=== PATIENT | female | born 1990 | race Caucasian/White ===

== ENCOUNTER 2024-10-29 08:50 | Inpatient (IN) | payer MEDICAID, SELFPAY ==
[2024-10-29 08:53] VITALS: PULSE 113; BMI 27.3
[2024-10-29 08:57] VITALS: BP 128/96; PULSE 98; RESP 18; TEMP 37; O2SAT 99
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
--- NOTE | 2024-10-29 09:09 | PD.EDGIBLD ---
ED GI Bleed RME/HPI General Chief complaint: GI Bleed Stated complaint: RECTAL BLEED Time Seen by Provider: 10/29/24 08:57 Arrival date/time: 10/29/24 08:50 Limitations: no limitations RME / HPI RME / HPI Narrative: DR. AYO VALDEZ ED EVALUATION: 34-year-old female with past medical history of HIV and compliant with medication presents to the Emergency Department after reportedly [place]. This morning, she had a bowel movement with some blood and clots. She denies fever, chills, runny nose, or cough. Patient is a smoker but denies alcohol or drug use. She was recently released from long-term. Related Data Previous Rx's ?Medication ?Instructions ?Recorded sulfamethoxazole 800 1 tab PO BID #14 tabs 11/21/21 mg-trimethoprim 160 mg tablet (Bactrim DS) acetaminophen 500 mg capsule 1,000 mg (2 x 500 mg) PO TID #30 03/29/23 caps dextromethorphan-guaifenesin 10 10 ml PO Q8H PRN cough #500 mL 03/29/23 mg-100 mg/5 mL oral liquid Allergies Allergy/AdvReac Type Severity Reaction Status Date / Time Penicillins Allergy Intermediate Rash Verified 10/29/24 08:56 Review of Systems Review of Systems Systems Reviewed: All systems reviewed, normal except as documented Past Medical History Past Medical History GENITOURINARY: Positive Genitourinary Disorders and Kidney Stones OTHER HISTORY: Positive Human Immunodeficiency Virus (HIV) Social History SMOKING STATUS: Former smoker SUBSTANCE USE: does not use ALCOHOL: Never ED Exam General Limitations: Present no limitations General appearance: Present alert and in no apparent distress Head Head exam: Present atraumatic, normocephalic and normal inspection Eye Eye exam: Present normal appearance, PERRL and EOMI ENT ENT exam: Present normal exam, normal oropharynx and mucous membranes moist Neck Neck exam: Present normal inspection, full ROM and trachea midline Chest Chest inspection: Present normal inspection and symmetric chest wall rise Respiratory Respiratory exam: Present normal lung sounds bilaterally Cardiovascular Cardiovascular exam: Present regular rate, normal rhythm and normal heart sounds Abdominal Exam Abdominal exam: Present soft and normal bowel sounds Extremities Exam Extremities exam: Present normal inspection and full ROM Back Exam Back exam: Present normal inspection and full ROM Neurological Exam Neurological exam: Present alert, oriented X3 and CN II-XII intact Psychiatric Psychiatric exam: Present normal affect and normal mood Skin Skin exam: Present warm, dry, intact and normal color Course Quality Measures none Orders Category Date Time Status CT Screening NOW Care 10/29/24 09:09 Active Referral - Online Merchandising Specialist Stat Cons 10/29/24 13:[address] abdomen pelvis w con Stat Exams 10/29/24 09:09 Completed CBC Stat Lab 10/29/24 09:18 Completed CMP [Comprehensive Metabolic Panel] Stat Lab 10/29/24 09:18 Completed HCG,Qualitative Serum Stat Lab 10/29/24 09:18 Completed Lipase Stat Lab 10/29/24 09:18 Completed Type and Screen Stat Lab 10/29/24 10:55 Completed UA, C/S IF [Urinalysis, C/S if Indicated] Stat Lab 10/29/24 13:09 Completed Acetaminophen Tab [Tylenol ES Tab] Med 10/29/24 09:10 Discontinued 500 mg PO NOW ONE Ringers Lactated 1000 ml [Lactated Ringers] 1,000 ml Med 10/29/24 12:53 Discontinued IV 999 mls/hr cefTRIAXone/D5w 1gm IV premix [Rocephin/D5w 1gm IV Med 10/29/24 13:46 Discontinued premix] 1 gm in 50 ml IV NOW Vital Signs Vital signs: Vital Signs Temperature 98.6 F 10/29/24 08:57 Pulse Rate 98 10/29/24 08:57 Respiratory Rate 18 10/29/24 08:57 Blood Pressure 128/96 H 10/29/24 08:57 Pulse Oximetry (%) 99 10/29/24 08:57 Oxygen Delivery Method Room Air 10/29/24 08:57 GI Bleed MDM Narrative MDM Narrative:: I, Aurora Alexandra am scribing for and in the presence of Dr. Gotti. Patient is a 34-year-old female seen emerged from concerns for abdominal pain after trauma. Also concerned about bright red blood per rectum x 1 episode earlier today. Vital signs and exam as listed. Concern for pancreatitis, perforation, urinary tract infection, pyelonephritis, hemorrhoid. Patient abdomen soft nondistended tender, not peritonitic at this time. Performed rectal exam no evidence of fissure no hemorrhoids. No blood appreciated on rectal exam. Ordered labs CT with medication for symptom relief. Labs without acute hematologic or significant metabolic abnormality. Lipase not elevated patient is not . Patient does have a 16 mm kidney stone on the right with moderate hydronephrosis. Urinalysis with evidence of infection. Provided patient with antibiotics. Patient is not septic. Initiated transfer for urology, discussed the case with [facility] transfer center, they are recommended that we inquire with interventional radiology to see if they are able to place a nephrostomy tube. I did discuss with Dr. Rincon our interventional radiologist, states that he is able to place a nephrostomy tube, will place it tomorrow. Discussed case with hospitalist kindly accepted patient for admission . patient agreeable and amenable to admission. Patient data External records reviewed:: [facility] previous records Clinical information provided by:: patient Social determinants that could affect healthcare access:: none Patient has the following chronic illnesses:: HIV and compliant with medication How is presenting disease/condition affected by chronic disease/condition?: uneffected by Evaluation data The following diagnostics were reviewed and interpreted by me:: lab results and radiology exam(s) Lab and/or radiology exams considered but not ordered:: none Interpretation Summary: Procedure(s): CT abdomen pelvis w con Accession Number(s): [id number] cc: Mikhail León MD; NO PRIMARY/FAMILY,PHYSICIAN; Ana Gotti MD~ Examination: CT abdomen with intravenous contrast CT pelvis with intravenous contrast 2-D coronal reconstructions 2-D sagittal reconstructions Date and time of exam:08/29/2024 1045 hours INDICATIONS: Bloody diarrhea with left lower quadrant abdominal pain today. CTDI: vol (mGy) 7.26 DLP: (mGycm) 400 Technique: Multiple axial sections of the abdomen and pelvis have been obtained. 64 slice high-resolution scanner used. 3 mm axial sections have been obtained, post intravenous injection 60 cc [id number] 2-D sagittal, coronal reconstructions obtained. Low dose protocols were performed. One or more of the following dose reduction techniques were used; automated exposure control, adjustment of the mA and/or KV according to patient size, use of iterative reconstruction technique. Findings: No focal liver or splenic lesions No gallstones No pancreatic mass. Moderate to advanced right hydronephrosis secondary to 16 mm proximal right ureteral calculus Normal appendix No pelvic mass Small left ovarian follicular cyst Bladder intact IMPRESSION: Moderate to advanced right hydronephrosis secondary to 16 mm proximal right ureteral calculus Dictated By: Mikhail León MD Medications / Prescriptions Medications or Prescriptions considered but not ordered:: none Medication administrations:: Medication Administration History Discontinued Medications Acetaminophen (Acetaminophen 500 Mg Tablet) 500 mg PO NOW ONE Stop: 10/29/24 09:11 Last Admin: 10/29/24 09:30 Dose: Not Given Documented By: TM Non-Admin Reason: Patient Refused Lactated Ringer's (Lactated Ringers) 1,000 mls @ 999 mls/hr IV .Q1H1M ONE Stop: 10/29/24 13:53 Last Infusion: 10/29/24 14:28 Dose: Infused Documented By: Admin: 10/29/24 13:27 Dose: 999 mls/hr Documented By: TM Ceftriaxone Sodium/Dextrose (Rocephin/D5w 1gm Iv Premix) 1 gm in 50 mls @ 100 mls/hr IV NOW ONE Stop: 10/29/24 14:15 Last Infusion: 10/29/24 15:07 Dose: Infused Documented By: Admin: 10/29/24 14:37 Dose: 100 mls/hr Documented By: EF see above Consultations Consultation(s) initiated? (list below): Yes Consultation #1 (Physician, Specialty, Details): Discussed test HPI, PMHx, lab, radiology results and/or management with resident working with the hospitalist. Will admit for further evaluation and management. Accepts patient for admission. Time: 16:25 Consultation #2 (Physician, Specialty, Details): hospitalist Diagnosis GI bleed differential diagnosis: other (traumatic gastrointestinal bleed, HIV-associated colitis, and hemorrhoidal bleeding) Most likely diagnosis given after review of the tests above:: Infected obstructed kidney stone, 16 mm with hydronephrosis Admission Indicated Admission indicated?: indicated Admission Request Was there a request for admission?: Yes Admission Attestation Admission request attestation: Discussed case with [] from Hospitalist service regarding admission. Discussed patients ED course, exam findings, labs, and radiology results. The Hospitalist [agrees,declines] to accept the patient for admission. Disposition Plan Disposition Plan: Admit Critical Care Time Critical Care Time Critical Care Time: Yes Total Critical Care Time (min.): 40 Attestation: The high probability of sudden, clinically significant deterioration in the patient?s condition required the highest level of my preparedness to intervene urgently. The services I provided to this patient were to treat and/or prevent clinically significant deterioration. Services included the following: chart data review, reviewing nursing notes and/or old charts, documentation time, it security consultant collaboration regarding findings and treatment options, medication orders and management, direct patient care, vital sign assessments and ordering, interpreting and reviewing diagnostic studies and lab tests. Aggregate critical care time includes only time during which I was engaged in work directly related to the patient?s care, as described above, whether at bedside or elsewhere in the Emergency Department. It did not include time spent performing other reported procedures or the services of residents, students, nurses or physician assistants. Discharge Plan Plan Patient Disposition: Admit Acute Care w/in Hospital Patient condition on transfer: Stable Prescriptions/Referrals Prescriptions/Med Rec: No Action sulfamethoxazole-trimethoprim [Bactrim DS] 800-160 mg tablet 1 tab PO BID Qty: 14 0RF acetaminophen 500 mg capsule 1,000 mg PO TID Qty: 30 0RF dextromethorphan-guaifenesin 10-100 mg/5 mL liquid 10 ml PO Q8H PRN (Reason: cough) Qty: 500 0RF Referrals: No Primary/Family,Physician [Primary Care Provider] - In 1 week Problem List Clinical Impression: Urinary tract infection, Hydronephrosis, Kidney calculi Patient/Caregiver Discharge Instructions Print Language: Welsh Stand Alone Forms: Carla Award Info., Patient Portal Info Letter
[2024-10-29 09:54] LABS: Basophils # (Auto) 0.0 Thou/mm3 (0.0-0.2); Basophils % (Auto) 0 % (0-2.5); Eosinophils # (Auto) 0.1 Thou/mm3 (0.0-0.5); Eosinophils % (Auto) 1 % (0-10); Hematocrit 38.5 % (36.0-46.0); Hemoglobin 14.1 g/dL (12.0-16.0); Immature Granulocytes Auto 0.02 Thou/mm3 (0.00-0.00); Lymphocytes # (Auto) 1.6 Thou/mm3 (1.0-4.8); Lymphocytes % (Auto) 18 % (10-50); Mean Corpuscular HGB Conc 36.6 g/dl (31.0-37.0); Mean Corpuscular Hemoglobin 32.7 pg (25.0-35.0); Mean Corpuscular Volume 89 fL (80-100); Monocytes # (Auto) 0.7 Thou/mm3 (0.0-0.8); Monocytes % (Auto) 8 % (0-12); Neutrophils # (Auto) 6.4 Thou/mm3 (1.8-7.7); Neutrophils % (Auto) 73 % (37-80); Nucleated Red Blood Cell # 0.00 Thou/mm3 (0.00-0.00); Nucleated Red Blood Cell % 0 /100 WBC (0); Platelet Count 310 Thou/mm3 (140-440); RDW Standard Deviation 38.9 fL (36.4-46.3); Red Blood Count 4.31 Miln/mm3 (4.00-5.20); White Blood Count 8.8 Thou/mm3 (3.6-11.0)
[2024-10-29 10:08] LABS: HCG,Qualitative Serum Negative
[2024-10-29 10:14] LABS: Alanine Aminotransferase 43 U/L (10-49); Albumin, Serum 4.2 gm/dL (3.5-5.0); Albumin/Globulin Ratio 1.3 (1.2-2.2); Alkaline Phosphatase 83 U/L (46-116); Anion Gap 12 (7-16); Aspartate Amino Transferase 26 U/L (0-34); BUN/Creatinine Ratio 12 Ratio (12-20); Bilirubin,Total 0.9 mg/dL (0.3-1.2); Blood Urea Nitrogen 13 mg/dL (9-23); Calcium 9.2 mg/dL (8.3-10.6); Calcium (Corrected) 9.2 mg/dL (8.5-10.1); Carbon Dioxide 24.5 mMol/L (20.0-31.0); Chloride 103 mMol/L (98-107); Creatinine (Component) 1.1 mg/dL (0.6-1.3); Estimated Creatinine Clearance 58.8 mL/min (>60); Globulin 3.2 gm/dL (2.3-3.5); Glucose 98 mg/dL (74-106); Lipase 21 U/L (12-53); Osmolality,Calculated 277 (275-295); Potassium 3.2 mMol/L (3.4-5.1); Sodium 139 mMol/L (136-145); Total Protein 7.4 gm/dL (5.7-8.2); eGFR > 60 See Note
[2024-10-29 10:15] VITALS: BP 112/73; PULSE 85; RESP 18; TEMP 37.1; O2SAT 97
[2024-10-29 13:07] VITALS: BP 115/87; PULSE 90; RESP 18; TEMP 36.9; O2SAT 98
[2024-10-29 13:16] LABS: Collection Type, Urine Clean Catch
[2024-10-29 13:26] LABS: Bacteria,Urine 2+; Bilirubin,Urine Negative (Negative); Blood,Urine 2+ (Negative); Color,Urine Yellow (Lt Yel-Yel); Culture Indicated,Urine Contaminated; Glucose, Urine Negative (Negative); Ketones,Urine 1+ (Negative); Leukocyte Esterase,Urine Positive (Negative); Nitrite,Urine Positive (Negative); PH,Urine 6.5 (5.0-7.0); Protein,Urine 2+ (Neg - Trace); RBC,Urine 36 /hpf (0-3); Squamous Epithelial Cell,Urine 14 /hpf (0-5); Urobilinogen,Urine Negative mg/dL (0.0-1.0); WBC,Urine 1341 /hpf (0-5)
[2024-10-29] MEDS: RINGERS LACTATED 1000 ML 1,000 ML 999 ML IV (13:27)
[2024-10-29 13:33] LABS: Clarity,Urine Cloudy (Clear/Hazy); Specific Gravity,Urine 1.015 (1.001-1.035)
[2024-10-29] MEDS: cefTRIAXone/D5w 1gm IV premix 1 GM/50 ML BAG IV (14:37)
--- NOTE | 2024-10-29 15:21 | PC.CC ---
Addendum entered by Charles Vora RN 10/29/24 16:37: [address] Gotti, transfer cancelled. Patient admitted and will have IR procedure tomorrow. [facility] made aware. Addendum entered by Charles Vora RN 10/29/24 15:37: 1530 [facility] transfer nurse Corrina requested images to be sent, transferred call to Dr. Gotti in ED. Original Note: 1520 Clinicals sent to [facility] for Urology. Transfer for Urology services for infected urological 16mm stone. Spoke with Corrina 1515 Contacted [facility] for Urology transfer. No Urologist division plant engineer at this time
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
[2024-10-29 17:33] VITALS: BP 108/79; PULSE 96; RESP 17; TEMP 37.1; O2SAT 100
--- NOTE | 2024-10-29 18:39 | PC.NURSE ---
pt pulled out her iv to go outside and smoke a cigarette
[2024-10-29] MEDS: RINGERS LACTATED 1000 ML 1,000 ML 100 ML IV (19:00)
[2024-10-29 19:50] VITALS: BP 104/74; PULSE 99; RESP 18; TEMP 36.7; O2SAT 100
[2024-10-29 21:03] VITALS: BMI 28.5
[2024-10-29] MEDS: MORPHINE SULF INJ 10 MG/ML VIAL 2 MG IVP (21:33)
--- NOTE | 2024-10-29 21:59 | PC.NURSE ---
Pt instructed to collect urine sample, specimen bottle provided to the pts.
[2024-10-30] VITALS (11 sets, daily range): BP systolic 95–114; BP diastolic 56–84; PULSE 65–96; RESP 16–22; TEMP 36–36.9; O2SAT 96–100
[2024-10-30] MEDS: MORPHINE SULF INJ 10 MG/ML VIAL 2 MG IVP (04:26)
[2024-10-30 06:21] LABS: Basophils # (Auto) 0.0 Thou/mm3 (0.0-0.2); Basophils % (Auto) 0 % (0-2.5); Eosinophils # (Auto) 0.2 Thou/mm3 (0.0-0.5); Eosinophils % (Auto) 2 % (0-10); Hematocrit 36.6 % (36.0-46.0); Hemoglobin 12.5 g/dL (12.0-16.0); Immature Granulocytes Auto 0.03 Thou/mm3 (0.00-0.00); Lymphocytes # (Auto) 2.5 Thou/mm3 (1.0-4.8); Lymphocytes % (Auto) 29 % (10-50); Mean Corpuscular HGB Conc 34.2 g/dl (31.0-37.0); Mean Corpuscular Hemoglobin 32.9 pg (25.0-35.0); Mean Corpuscular Volume 96 fL (80-100); Monocytes # (Auto) 0.9 Thou/mm3 (0.0-0.8); Monocytes % (Auto) 11 % (0-12); Neutrophils # (Auto) 4.8 Thou/mm3 (1.8-7.7); Neutrophils % (Auto) 57 % (37-80); Nucleated Red Blood Cell # 0.00 Thou/mm3 (0.00-0.00); Nucleated Red Blood Cell % 0 /100 WBC (0); Platelet Count 268 Thou/mm3 (140-440); RDW Standard Deviation 42.5 fL (36.4-46.3); Red Blood Count 3.80 Miln/mm3 (4.00-5.20); White Blood Count 8.4 Thou/mm3 (3.6-11.0)
[2024-10-30 06:37] LABS: INR 1.0 (0.9-1.3); Partial Thromboplastin Time 26.7 Seconds (22.0-36.0); Prothrombin Time 11.0 Seconds (9.0-12.2)
[2024-10-30] MEDS: RINGERS LACTATED 1000 ML 1,000 ML 100 ML IV ×2 (06:40→20:57)
[2024-10-30 06:59] LABS: Alanine Aminotransferase 32 U/L (10-49); Albumin, Serum 3.7 gm/dL (3.5-5.0); Albumin/Globulin Ratio 1.4 (1.2-2.2); Alkaline Phosphatase 68 U/L (46-116); Anion Gap 10 (7-16); Aspartate Amino Transferase 22 U/L (0-34); BUN/Creatinine Ratio 13 Ratio (12-20); Bilirubin,Total 0.6 mg/dL (0.3-1.2); Blood Urea Nitrogen 12 mg/dL (9-23); Calcium 8.9 mg/dL (8.3-10.6); Calcium (Corrected) 9.1 mg/dL (8.5-10.1); Carbon Dioxide 27.5 mMol/L (20.0-31.0); Chloride 105 mMol/L (98-107); Creatinine (Component) 0.9 mg/dL (0.6-1.3); Estimated Creatinine Clearance 73.4 mL/min (>60); Globulin 2.7 gm/dL (2.3-3.5); Glucose 84 mg/dL (74-106); Magnesium 1.4 mg/dL (1.6-2.6); Osmolality,Calculated 281 (275-295); Phosphorous 3.2 mg/dL (2.4-5.1); Potassium 3.9 mMol/L (3.4-5.1); Sodium 142 mMol/L (136-145); Total Protein 6.4 gm/dL (5.7-8.2); eGFR > 60 See Note
[2024-10-30] MEDS: cefTRIAXone/D5w 1gm IV premix 1 GM/50 ML BAG IV (08:13)
--- NOTE | 2024-10-30 08:24 | PC.NURSE ---
Patients boyfriend observed at bedside exhibiting suspicious behavior. Patient was found standing next to the IV pole, appearing to reposition medications. When approached by the nurse and asked if assistance was needed, the patient appeared startled and declined help. Behavior noted and will continue to monitor closely.
[2024-10-30] MEDS: Magnesium Sulfate 2 GM Ivpb 2 GM/50 ML BAG IV (08:52)
--- NOTE | 2024-10-30 10:17 | PC.SS ---
SS met with patient who is alert/oriented. Patient was able to verify demographics. Patient was admitted for kidney stones. Patient states she resides out in the community. She is homeless. She has a mailing address. Her boyfriend was at bedside. He states she can d/c to [address] [place] [address]. Patient is independent with ADL's. Patient states she will d/c with her boyfriend. Notes indicate possible nephrostomy tube. PCP: NATALY and last appt was last month. [facility]acy: [facility]. Patient does not receive income. FS only. Alt medical decision maker is her boyfriendAlvino, . Transportation: uber D/c plan: halfway/ to a friends home alt medical decision maker: Alvino Iraheta, transportation: Uber /Taxi
[2024-10-30] MEDS: fentaNYL CIT INJ 50 mCg/ML AMP 2ML 75 MCG IVP (11:20)
--- NOTE | 2024-10-30 11:35 | PC.NURSE ---
Patient refused procedure to be performed at this time. Patient stated she did not want to have procedure performed in this hospital. Dr. Powers aware. Patient expresses understanding of the potential risks associated with medical condition and refusal of treatments. Bedside RN made aware. Patient left in room. No acute distress noted. No SOB noted. No acute changes or deviations from baseline.
--- NOTE | 2024-10-30 11:56 | PC.NURSE ---
Patient returned from IR at 1100. According to SAUL Jimenez, the patient refused the procedure after Fentanyl had already been administered for sedation. Following the medication administration,, the patient questioned weather she could refuse the procedure. She verbalized that she no longer wished to proceed, stating that the stone had been present for a long time without causing any issues and that she was not currently experiencing any pain related to it. Per Saul Jimenez, the procedure was subsequently aborted, and the patient was transported back to the unit in stable condition. Tele monitor applied, pt drowsy, bed alarm in place. notified.
[2024-10-30 12:53] LABS: Alcohol, Urine Negative (Negative); Amphetamine/Methamp Scrn,U Positive (Negative); Barbiturate Screen,Urine Negative (Negative); Benzodiazepines Screen,Urine Negative (Negative); Benzoylecgonine Screen, Ur Negative (Negative); Fentanyl Screen,Urine Positive (Negative); Opiate Screen,Urine Positive (Negative); THC Screen,Urine Negative (Negative)
--- NOTE | 2024-10-30 18:02 | ESPR_ITS ---
<Statement entered by Dandre Sebastian MD - 10/30/24 18:16> In summary: 34-year-old female PMHx of alcohol use disorder, tobacco use disorder, remote history of drug use, with abdominal pain. Admitted for right- sided hydronephrosis secondary to 14 mm obstructing stone on CT. Radiologist consulted, pending IR nephrostomy which would likely occur on 11/02. Patient remains aseptic otherwise. I?ve reviewed the note and agree with the resident's assessment and plan, with the exceptions outlined above. I personally went over the labs, imaging, home medications, and prior records, and examined the patient. The case was also reviewed with the attending physician. Please note: this document was transcribed using voice recognition technology; minor inaccuracies may be present. Dandre Sebastian DO PGY II Documentation for date of: 10/30/24 Subjective Subjective Interval history: Patient was seen and examined at bedside. No acute events took place overnight. She is accompanied by boyfriend in the room. Patient states Lower abdominal pain and back pain resolved. Patient refused to undergo IR nephrostomy tube placement today. Upon discussion of risks involved with forgoing interventional management of her kidney stone, she became agreeable to the procedure once again. Exam Vital Signs Temp Pulse Resp BP Pulse Ox O2 Del Method O2 Flow Rate 97.5 F 75 16 98/62 98 Room Air 3 10/30/24 16:10/30/24 16:10/30/24 16:10/30/24 16:00 10/30/24 16:10/30/24 16:00 10/30/24 11:09 Narrative Exam General: Alert and oriented x3, No apparent distress. Skin: Intact, Warm, no rashes. HEENT: Normocephalic, Atraumatic. Normal neck range of motion, Supple. Trachea midline. Respiratory: Lungs are clear to auscultation, Breath sounds are equal bilaterally with equal chest expansion. Cardiovascular: RRR, normal S1, S2, No murmurs. Distal pulses 2+ Abdomen: Abdomen soft, non-distended, without erythema, or lesions. Normotensive bowel sounds x4. Percussion tympanic. Palpation nontender in all four quadrants. No organomagely. No guarding or rebound present. Musculoskeletal/Extremities: No erythema, swelling, tenderness of any joints. No edema of BLE. DP pulses +2/3 b/l. Full active ROM of all four extremities. Neurologic: NEURO: Oriented x3, cranial nerves II to XII grossly intact. Moves extremities x4. No focal neurologic deficits noted. Psych: Thoughts linear and responses appropriate. Objective Labs 10/31/24 05:16 10/31/24 05:16 Labs: Laboratory Results - last 24 hr 10/30/24 10/30/24 04:59 11:55 WBC 8.4 RBC 3.80 L Hgb 12.5 Hct 36.6 MCV 96 MCH 32.9 MCHC 34.2 RDW Std Deviation 42.5 Plt Count 268 D Neut % (Auto) 57 Lymph % (Auto) 29 [place] % (Auto) 11 Eos % (Auto) 2 Baso % (Auto) 0 Neut # (Auto) 4.8 Lymph # (Auto) 2.5 [place] # (Auto) 0.9 H Eos # (Auto) 0.2 Baso # (Auto) 0.0 Immature Gran # (Auto) 0.03 H Absolute Nucleated RBC 0.00 Immature Gran % 0 Nucleated RBC % 0 PT 11.0 INR 1.0 APTT 26.7 Sodium 142 Potassium 3.9 D Chloride 105 Carbon Dioxide 27.5 Anion Gap 10 BUN 12 Creatinine 0.9 Estim Creat Clear Calc 73.4 eGFR > 60 BUN/Creatinine Ratio 13 Glucose 84 Calculated Osmolality 281 Calcium 8.9 Corrected Calcium 9.1 Phosphorus 3.2 Magnesium 1.4 L Total Bilirubin 0.6 AST 22 ALT 32 Alkaline Phosphatase 68 Total Protein 6.4 Albumin 3.7 D Globulin 2.7 Albumin/Globulin Ratio 1.4 Urine Opiates Screen Positive A Urine Fentanyl Screen Positive A Ur Barbiturates Screen Negative U Amphetamin/Meth Scrn Positive A U Benzodiazepines Scrn Negative U Cocaine Metab Screen Negative U Marijuana (THC) Screen Negative Urine Alcohol Negative Quality Measures Quality Measures none Assessment & Plan Assessment Current Active Medications: Generic Name Dose Route Start Last Admin Trade Name Freq PRN Reason Stop Dose Admin Acetaminophen 650 mg 10/29/24 17:26 Acetaminophen 325 Mg Tablet PO 11/28/24 17:25 Q6H PRN PAIN SCALE 1-3 (mild Lactated Ringer's 1,000 mls @ 100 mls/hr 10/29/24 18:00 10/30/24 06:40 Lactated Ringers IV 11/28/24 17:59 100 mls/hr .Q10H GENI Administration Morphine Sulfate 2 mg 10/29/24 17:26 10/30/24 04:26 Morphine Sulf Inj 10 Mg/Ml Vial IVP 11/03/24 17:25 2 mg Q2H PRN Administration PAIN SCALE 7-10 (Severe Oxycodone/Acetaminophen 1 tab 10/29/24 17:26 Oxycodone/Apap 5/325 Tablet PO 11/03/24 17:25 Q6H PRN PAIN SCALE 4-6 (Moderate Plan In summary, Jyotsna Rocha is 34F with MHx of nephrolithiasis, HIV, alcohol use disorder, past drug use who is being hospitalized for Rt ureteral calculus. #Kidney Stone #Asymptomatic Bacteriura vs complicated UTI Pt has hx of kidney stones and has passed stones without being otherwise symptomatic. CTAP: Moderate to advanced right hydronephrosis secondary to 16 mm proximal right ureteral calculus. UA positive for cloudy, 2+ protein, 2+ blood, nitrate, leukocyte Estrase, and 2+ bacteria U-Tox:positive for opiates, fentanyl, and amphetamin (10/30) Plan: Ceftriaxone IV 1g x1 LR IV 100ml/h Monitoring heart function, on tele pending UCx pending Nephrostomy tube placement on SaturdayJUL by Dr Ordonez #Hematochezia Consider GI bleed, GI trauma, uterine bleeding, pancreatitis, perforation, urinary tract infection, pyelonephritis, hemorrhoid. On rectal examination, there was no evidence of fissure no hemorrhoids. No blood appreciated on rectal exam. Abdomen soft, non-distended, and no TTP noted on exam. Hgb stable 14.1, No evidence of pancreatitis Lipase 21, non-pregnanat HCG negative. Plan: [place] 5/325 PRN Morphine 2mg inj Q2h PRN Health Maintenance: Disposition: Med Surg Diet: Routine PPx DVT: SCDs PPx GI: Code status: Full This case was discussed with my attending physician, Dr. Noguera, and senior resident Dr Sebastian. Iglesia Hayden, DO PGY I Attending Provider Attestation/Addendum I have discussed and was present for the essential components of the history, physical examination, diagnosis, and treatment plan with the resident. I agree with the patient's care as documented by the resident and amended herein by me. Darian Noguera DO. Although this document has been carefully reviewed, there may still be some phonetic and other typographical errors. These errors are purely grammatical due to imperfections in the software program and should not be construed in any way to compromise the substance of the patient's medical care during this visit. Patient initially refused procedure this morning after getting dose of fentanyl, we did drug test the patient as there is a suspicion of her boyfriend bringing her illicit substance in the hospital, she was positive for methamphetamines. She is agreeable for nephrostomy tube which cannot be done until Saturday.
[2024-10-31] VITALS (10 sets, daily range): BP systolic 94–122; BP diastolic 47–76; PULSE 62–91; RESP 13–19; TEMP 36–36.7; O2SAT 96–98
[2024-10-31 05:56] LABS: Basophils # (Auto) 0.0 Thou/mm3 (0.0-0.2); Basophils % (Auto) 0 % (0-2.5); Eosinophils # (Auto) 0.2 Thou/mm3 (0.0-0.5); Eosinophils % (Auto) 3 % (0-10); Hematocrit 35.7 % (36.0-46.0); Hemoglobin 12.5 g/dL (12.0-16.0); Immature Granulocytes Auto 0.04 Thou/mm3 (0.00-0.00); Lymphocytes # (Auto) 2.0 Thou/mm3 (1.0-4.8); Lymphocytes % (Auto) 29 % (10-50); Mean Corpuscular HGB Conc 35.0 g/dl (31.0-37.0); Mean Corpuscular Hemoglobin 33.1 pg (25.0-35.0); Mean Corpuscular Volume 94 fL (80-100); Monocytes # (Auto) 0.7 Thou/mm3 (0.0-0.8); Monocytes % (Auto) 10 % (0-12); Neutrophils # (Auto) 3.9 Thou/mm3 (1.8-7.7); Neutrophils % (Auto) 58 % (37-80); Nucleated Red Blood Cell # 0.00 Thou/mm3 (0.00-0.00); Nucleated Red Blood Cell % 0 /100 WBC (0); Platelet Count 224 Thou/mm3 (140-440); RDW Standard Deviation 41.4 fL (36.4-46.3); Red Blood Count 3.78 Miln/mm3 (4.00-5.20); White Blood Count 6.8 Thou/mm3 (3.6-11.0)
[2024-10-31 06:24] LABS: Alanine Aminotransferase 28 U/L (10-49); Albumin, Serum 3.4 gm/dL (3.5-5.0); Albumin/Globulin Ratio 1.4 (1.2-2.2); Alkaline Phosphatase 63 U/L (46-116); Anion Gap 10 (7-16); Aspartate Amino Transferase 19 U/L (0-34); BUN/Creatinine Ratio 11 Ratio (12-20); Bilirubin,Total 0.3 mg/dL (0.3-1.2); Blood Urea Nitrogen 11 mg/dL (9-23); Calcium 8.3 mg/dL (8.3-10.6); Calcium (Corrected) 8.8 mg/dL (8.5-10.1); Carbon Dioxide 25.0 mMol/L (20.0-31.0); Chloride 105 mMol/L (98-107); Creatinine (Component) 1.0 mg/dL (0.6-1.3); Estimated Creatinine Clearance 66.0 mL/min (>60); Globulin 2.4 gm/dL (2.3-3.5); Glucose 105 mg/dL (74-106); Magnesium 1.8 mg/dL (1.6-2.6); Osmolality,Calculated 278 (275-295); Phosphorous 3.9 mg/dL (2.4-5.1); Potassium 4.2 mMol/L (3.4-5.1); Sodium 140 mMol/L (136-145); Total Protein 5.8 gm/dL (5.7-8.2); eGFR > 60 See Note
[2024-10-31] MEDS: RINGERS LACTATED 1000 ML 1,000 ML 100 ML IV ×2 (08:04→19:10)
[2024-10-31] MEDS: BIKTARVY PO (11:52)
--- NOTE | 2024-10-31 11:53 | ESPR_ITS ---
Documentation for date of: 10/31/24 Subjective Subjective Interval history: Patient was seen and examined at bedside. No acute events took place overnight. She is accompanied by boyfriend in the room. Patient states Lower abdominal pain and back pain resolved. Latest bowel movement did not appear to the patient to have blood clots. patient shares about newfound rash in the groin area with small raised bumps at the most half an inch in diameter without signs of purulence. She is states that she was feverish with chills at night yesterday and earlier in the morning today. Exam Vital Signs Temp Pulse Resp BP Pulse Ox O2 Del Method O2 Flow Rate 97.8 F 75 15 122/75 96 Room Air 3 10/31/24 07:54 10/31/24 07:54 10/31/24 07:54 10/31/24 07:54 10/31/24 07:54 10/31/24 07:54 10/30/24 11:09 Narrative Exam General: Alert and oriented x3, No apparent distress. Skin: Intact, Warm, no rashes. HEENT: Normocephalic, Atraumatic. Normal neck range of motion, Supple. Trachea midline. Respiratory: Lungs are clear to auscultation, Breath sounds are equal bilaterally with equal chest expansion. Cardiovascular: RRR, normal S1, S2, No murmurs. Distal pulses 2+ Abdomen: Abdomen soft, non-distended, without erythema, or lesions. Normotensive bowel sounds x4. Percussion tympanic. Palpation nontender in all four quadrants. No organomagely. No guarding or rebound present. Musculoskeletal/Extremities: No erythema, swelling, tenderness of any joints. No edema of BLE. DP pulses +2/3 b/l. Full active ROM of all four extremities. Neurologic: NEURO: Oriented x3, cranial nerves II to XII grossly intact. Moves extremities x4. No focal neurologic deficits noted. Psych: Thoughts linear and responses appropriate. Objective Labs 10/31/24 05:16 10/31/24 05:16 Labs: Laboratory Results - last 24 hr 10/30/24 10/31/24 11:55 05:16 WBC 6.8 RBC 3.78 L Hgb 12.5 Hct 35.7 L MCV 94 MCH 33.1 MCHC 35.0 RDW Std Deviation 41.4 Plt Count 224 D Neut % (Auto) 58 Lymph % (Auto) 29 [place] % (Auto) 10 Eos % (Auto) 3 Baso % (Auto) 0 Neut # (Auto) 3.9 Lymph # (Auto) 2.0 [place] # (Auto) 0.7 Eos # (Auto) 0.2 Baso # (Auto) 0.0 Immature Gran # (Auto) 0.04 H Absolute Nucleated RBC 0.00 Immature Gran % 1 H Nucleated RBC % 0 Sodium 140 Potassium 4.2 Chloride 105 Carbon Dioxide 25.0 Anion Gap 10 BUN 11 Creatinine 1.0 Estim Creat Clear Calc 66.0 eGFR > 60 BUN/Creatinine Ratio 11 L Glucose 105 Calculated Osmolality 278 Calcium 8.3 Corrected Calcium 8.8 Phosphorus 3.9 Magnesium 1.8 Total Bilirubin 0.3 AST 19 ALT 28 Alkaline Phosphatase 63 Total Protein 5.8 Albumin 3.4 L Globulin 2.4 Albumin/Globulin Ratio 1.4 Urine Opiates Screen Positive A Urine Fentanyl Screen Positive A Ur Barbiturates Screen Negative U Amphetamin/Meth Scrn Positive A U Benzodiazepines Scrn Negative U Cocaine Metab Screen Negative U Marijuana (THC) Screen Negative Urine Alcohol Negative Quality Measures Quality Measures none Assessment & Plan Assessment Current Active Medications: Generic Name Dose Route Start Last Admin Trade Name Freq PRN Reason Stop Dose Admin Acetaminophen 650 mg 10/29/24 17:26 Acetaminophen 325 Mg Tablet PO 11/28/24 17:25 Q6H PRN PAIN SCALE 1-3 (mild Biktarvy(Bictegravir 0 ea 10/31/24 10:45 10/31/24 11:52 , Emtricitabine, PO 11/30/24 10:44 1 tablet Tenofovir) 50-200-25 DAILY GENI Administration Mg Tablet Lactated Ringer's 1,000 mls @ 100 mls/hr 10/29/24 18:00 10/31/24 08:04 Lactated Ringers IV 11/28/24 17:59 100 mls/hr .Q10H GENI Administration Morphine Sulfate 2 mg 10/29/24 17:26 10/30/24 04:26 Morphine Sulf Inj 10 Mg/Ml Vial IVP 11/03/24 17:25 2 mg Q2H PRN Administration PAIN SCALE 7-10 (Severe Oxycodone/Acetaminophen 1 tab 10/29/24 17:26 Oxycodone/Apap 5/325 Tablet PO 11/03/24 17:25 Q6H PRN PAIN SCALE 4-6 (Moderate Plan In summary, Jyotsna Rocha is 34F with MHx of nephrolithiasis, HIV, alcohol use disorder, past drug use who is being hospitalized for Rt ureteral calculus. #Kidney Stone #Asymptomatic Bacteriura vs complicated UTI Pt has hx of kidney stones and has passed stones without being otherwise symptomatic. Pt reported subjective fevers and chills during hospital days 1 and 2, denies dysuria, urinary frequncy or urgency. Patient is HIV+. CTAP: Moderate to advanced right hydronephrosis secondary to 16 mm proximal right ureteral calculus. UA positive for cloudy, 2+ protein, 2+ blood, nitrate, leukocyte Estrase, and 2+ bacteria U-Tox:positive for opiates, fentanyl, and amphetamin (10/30) Plan: Ceftriaxone IV 1g Qday LR IV 100ml/h Monitoring heart function, on pending UCx pending Nephrostomy tube placement on SaturdayJUL by Dr Ordonez #Hematochezia Consider GI bleed, GI trauma, uterine bleeding, pancreatitis, perforation, urinary tract infection, pyelonephritis, hemorrhoid. On rectal examination, there was no evidence of fissure no hemorrhoids. No blood appreciated on rectal exam. Abdomen soft, non-distended, and no TTP noted on exam. Hgb stable 14.1, No evidence of pancreatitis Lipase 21, non-pregnanat HCG negative. Plan: [place] 5/325 PRN Morphine 2mg inj Q2h PRN #Groin rash #HIV Possible ART medication non-compliance, and immunocompromise status -ordered lymphocyte subset panel -ordered HSV1 and 2 antibody screening Health Maintenance: Disposition: Med Surg Diet: Routine PPx DVT: SCD PPx GI: Code status: Full This case was discussed with my attending physician, Dr. Noguera. Iglesia Hayden DO PGY I Attending Provider Attestation/Addendum I have discussed and was present for the essential components of the history, physical examination, diagnosis, and treatment plan with the resident. I agree with the patient's care as documented by the resident and amended herein by me. Darian Noguera DO. Although this document has been carefully reviewed, there may still be some phonetic and other typographical errors. These errors are purely grammatical due to imperfections in the software program and should not be construed in any way to compromise the substance of the patient's medical care during this visit. Patient seen and evaluated in the a.m., no acute events overnight. Patient does have complaints of rash in her groin area which she is concerned for sexually transmitted infection. We will test for this, we will also order CD4 count as the patient is not always compliant with her ART therapy, if low we will consult infectious disease on Saturday. Nephrostomy tube placement also scheduled for Saturday. Patient strenuously counseled for her meth abuse and understands.
[2024-10-31] MEDS: cefTRIAXone/D5w 1gm IV premix 1 GM/50 ML BAG IV (19:17)
[2024-11-01] VITALS (8 sets, daily range): BP systolic 101–119; BP diastolic 66–78; PULSE 60–88; RESP 13–16; TEMP 36.1–36.9; O2SAT 95–98
[2024-11-01] MEDS: RINGERS LACTATED 1000 ML 1,000 ML 100 ML IV (05:07)
[2024-11-01 05:55] LABS: Basophils # (Auto) 0.0 Thou/mm3 (0.0-0.2); Basophils % (Auto) 1 % (0-2.5); Eosinophils # (Auto) 0.1 Thou/mm3 (0.0-0.5); Eosinophils % (Auto) 2 % (0-10); Hematocrit 36.6 % (36.0-46.0); Hemoglobin 12.4 g/dL (12.0-16.0); Immature Granulocytes Auto 0.03 Thou/mm3 (0.00-0.00); Lymphocytes # (Auto) 2.4 Thou/mm3 (1.0-4.8); Lymphocytes % (Auto) 38 % (10-50); Mean Corpuscular HGB Conc 33.9 g/dl (31.0-37.0); Mean Corpuscular Hemoglobin 32.6 pg (25.0-35.0); Mean Corpuscular Volume 96 fL (80-100); Monocytes # (Auto) 0.7 Thou/mm3 (0.0-0.8); Monocytes % (Auto) 11 % (0-12); Neutrophils # (Auto) 3.1 Thou/mm3 (1.8-7.7); Neutrophils % (Auto) 48 % (37-80); Nucleated Red Blood Cell # 0.00 Thou/mm3 (0.00-0.00); Nucleated Red Blood Cell % 0 /100 WBC (0); Platelet Count 145 Thou/mm3 (140-440); RDW Standard Deviation 41.3 fL (36.4-46.3); Red Blood Count 3.80 Miln/mm3 (4.00-5.20); White Blood Count 6.4 Thou/mm3 (3.6-11.0)
[2024-11-01 06:29] LABS: Alanine Aminotransferase 25 U/L (10-49); Albumin, Serum 3.4 gm/dL (3.5-5.0); Albumin/Globulin Ratio 1.3 (1.2-2.2); Alkaline Phosphatase 61 U/L (46-116); Anion Gap 9 (7-16); Aspartate Amino Transferase 19 U/L (0-34); BUN/Creatinine Ratio 9 Ratio (12-20); Bilirubin,Total 0.2 mg/dL (0.3-1.2); Blood Urea Nitrogen 9 mg/dL (9-23); Calcium 8.7 mg/dL (8.3-10.6); Calcium (Corrected) 9.2 mg/dL (8.5-10.1); Carbon Dioxide 26.9 mMol/L (20.0-31.0); Chloride 106 mMol/L (98-107); Creatinine (Component) 1.0 mg/dL (0.6-1.3); Estimated Creatinine Clearance 66.0 mL/min (>60); Globulin 2.6 gm/dL (2.3-3.5); Glucose 91 mg/dL (74-106); Magnesium 1.3 mg/dL (1.6-2.6); Osmolality,Calculated 281 (275-295); Phosphorous 3.9 mg/dL (2.4-5.1); Potassium 4.2 mMol/L (3.4-5.1); Sodium 142 mMol/L (136-145); Total Protein 6.0 gm/dL (5.7-8.2); eGFR > 60 See Note
[2024-11-01] MEDS: Magnesium Sulfate 2 GM Ivpb 2 GM/50 ML BAG IV (08:40)
[2024-11-01] MEDS: BIKTARVY PO (08:40)
--- NOTE | 2024-11-01 13:11 | ESPR_ITS ---
Documentation for date of: 11/01/24 Subjective Subjective Interval history: Patient was seen and examined at bedside. No acute events took place overnight. Patient states Lower abdominal pain and back pain resolved and have not returned. Latest bowel movement did not appear to the patient to have blood clots. On questioning, patient elaborates on the rash in her groin area that it is a solitary raised brown lesion, the size of a finger-tip, without signs of purulence. Denies fevers, or chills, dysuria, urinary frequency, or urgency. Exam Vital Signs Temp Pulse Resp BP Pulse Ox O2 Del Method O2 Flow Rate 97.0 F 72 13 106/78 95 Room Air 3 11/01/24 12:00 11/01/24 12:00 11/01/24 12:11/01/24 12:11/01/24 12:11/01/24 12:10/30/24 11:09 Narrative Exam General: Alert and oriented x3, No apparent distress. Skin: Intact, Warm, no rashes. HEENT: Normocephalic, Atraumatic. Normal neck range of motion, Supple. Trachea midline. Respiratory: Lungs are clear to auscultation, Breath sounds are equal bilaterally with equal chest expansion. Cardiovascular: RRR, normal S1, S2, No murmurs. Distal pulses 2+ Abdomen: Abdomen soft, non-distended, without erythema, or lesions. Normotensive bowel sounds x4. Percussion tympanic. Palpation nontender in all four quadrants. No organomagely. No guarding or rebound present. Musculoskeletal/Extremities: No erythema, swelling, tenderness of any joints. No edema of BLE. DP pulses +2/3 b/l. Full active ROM of all four extremities. Neurologic: NEURO: Oriented x3, cranial nerves II to XII grossly intact. Moves extremities x4. No focal neurologic deficits noted. Psych: Thoughts linear and responses appropriate. Objective Labs 11/01/24 05:04 11/01/24 05:04 Labs: Laboratory Results - last 24 hr 11/01/24 05:04 WBC 6.4 RBC 3.80 L Hgb 12.4 Hct 36.6 MCV 96 MCH 32.6 MCHC 33.9 RDW Std Deviation 41.3 Plt Count 145 D Neut % (Auto) 48 Lymph % (Auto) 38 [place] % (Auto) 11 Eos % (Auto) 2 Baso % (Auto) 1 Neut # (Auto) 3.1 Lymph # (Auto) 2.4 [place] # (Auto) 0.7 Eos # (Auto) 0.1 Baso # (Auto) 0.0 Immature Gran # (Auto) 0.03 H Absolute Nucleated RBC 0.00 Immature Gran % 1 H Nucleated RBC % 0 Sodium 142 Potassium 4.2 Chloride 106 Carbon Dioxide 26.9 Anion Gap 9 BUN 9 Creatinine 1.0 Estim Creat Clear Calc 66.0 eGFR > 60 BUN/Creatinine Ratio 9 L Glucose 91 Calculated Osmolality 281 Calcium 8.7 Corrected Calcium 9.2 Phosphorus 3.9 Magnesium 1.3 L Total Bilirubin 0.2 L AST 19 ALT 25 Alkaline Phosphatase 61 Total Protein 6.0 Albumin 3.4 L Globulin 2.6 Albumin/Globulin Ratio 1.3 Quality Measures Quality Measures none Assessment & Plan Assessment Current Active Medications: Generic Name Dose Route Start Last Admin Trade Name Freq PRN Reason Stop Dose Admin Acetaminophen 650 mg 10/29/24 17:26 Acetaminophen 325 Mg Tablet PO 11/28/24 17:25 Q6H PRN PAIN SCALE 1-3 (mild Biktarvy(Bictegravir 0 ea 10/31/24 10:45 11/01/24 08:40 , Emtricitabine, PO 11/30/24 10:44 1 tablet Tenofovir) 50-200-25 DAILY GENI Administration Mg Tablet Morphine Sulfate 2 mg 10/29/24 17:26 10/30/24 04:26 Morphine Sulf Inj 10 Mg/Ml Vial IVP 11/03/24 17:25 2 mg Q2H PRN Administration PAIN SCALE 7-10 (Severe Oxycodone/Acetaminophen 1 tab 10/29/24 17:26 Oxycodone/Apap 5/325 Tablet PO 11/03/24 17:25 Q6H PRN PAIN SCALE 4-6 (Moderate Plan In summary, Jyotsna Rocha is 34F with MHx of nephrolithiasis, HIV, alcohol use disorder, past drug use who is being hospitalized for Rt ureteral calculus. #Kidney Stone #Asymptomatic Bacteriura vs complicated UTI, resolved Pt has hx of kidney stones and has passed stones without being otherwise symptomatic. Pt reported subjective fevers and chills during hospital days 1 and 2, denies dysuria, urinary frequncy or urgency. Patient is HIV+. CTAP: Moderate to advanced right hydronephrosis secondary to 16 mm proximal right ureteral calculus. UA positive for cloudy, 2+ protein, 2+ blood, nitrate, leukocyte Estrase, and 2+ bacteria U-Tox:positive for opiates, fentanyl, and amphetamin (10/30) UCtx were negative; ABx therapy stopped as a result. Pt has received three IV 1g doses of ceftriaxone over three days. Plan: Ceftriaxone IV 1g Qday -STOPPED LR IV 100ml/h Monitoring heart function, on tele pending Nephrostomy tube placement on SaturdayL by Dr Ordonez #Hematochezia Consider GI bleed, GI trauma, uterine bleeding, pancreatitis, perforation, urinary tract infection, pyelonephritis, hemorrhoid. On rectal examination, there was no evidence of fissure no hemorrhoids. No blood appreciated on rectal exam. Abdomen soft, non-distended, and no TTP noted on exam. Hgb stable 14.1, No evidence of pancreatitis Lipase 21, non-pregnanat HCG negative. Plan: [place] 5/325 PRN Morphine 2mg inj Q2h PRN #Groin rash #HIV Possible ART medication non-compliance, and immunocompromise status may uninhibit opportunistic infections. Additional sextually transmitted pathogenic organisms tested for. -pending lymphocyte subset panel -pending HSV1 and 2 antibody screening -pending STI screening with PCR Chlamydia/Gonococcus/Trichomonas vaginalis Health Maintenance: Disposition: Med Surg Diet: Routine PPx DVT: SCD PPx GI: Code status: Full This case was discussed with my attending physician, Dr. Noguera. Iglesia Hayden DO PGY I Attending Provider Attestation/Addendum I have discussed and was present for the essential components of the history, physical examination, diagnosis, and treatment plan with the resident. I agree with the patient's care as documented by the resident and amended herein by me. Darian Noguera DO. Although this document has been carefully reviewed, there may still be some phonetic and other typographical errors. These errors are purely grammatical due to imperfections in the software program and should not be construed in any way to compromise the substance of the patient's medical care during this visit. Patient seen and evaluated this AM. No events overnight, vital signs stable, patient afebrile, labs largely unremarkable. Urine culture negative. Patient subsequently admitted for severe hydronephrosis of the right kidney secondary to a 16 mm proximal right ureteral calculus which is chronic. Hydronephrosis appears to be worse hence the nephrostomy tube. Patient originally scheduled for nephrostomy tube on Saturday however she denied the procedure after she went down and received a dose of fentanyl just prior. Considering this is very chronic for her and she is not in any discomfort, we felt safe to wait until Saturday to perform procedure as she would unlikely not be able to be transferred considering she already denied the procedure once and as stated, this is chronic, renal function is okay for now however hydronephrosis does appear to be worse. Patient will need urology follow-up when she is ready to DC. Patient is never followed up in the past, our records go back to 2018 where the stone was present at that time. The patient is also HIV positive on Biktarvy however there is questionable medication compliance. Patient also meth positive even though she denied doing any drugs. Her living situation is unclear, may be homeless but states she has adequate transportation and can go to her appointments as necessary. Patient also had complaints of a small rash in her groin and is concerned for STI. STI panel pending, CD4 count also pending, if low may need infectious disease consult but we will see. Patient's Biktarvy restarted, patient was on ceftriaxone for potential UTI however discontinued today considering urine culture is unremarkable. Patient's boyfriend is also been visiting her in the hospital and per nurse, it is suspected he may be administering some illicit substance so we will have to keep a close eye on her. Continue to monitor closely while she is here.
[2024-11-02] VITALS (16 sets, daily range): BP systolic 86–146; BP diastolic 57–86; PULSE 54–74; RESP 14–19; TEMP 36.1–36.9; O2SAT 95–100; BMI 28.6
[2024-11-02 06:02] LABS: Basophils # (Auto) 0.0 Thou/mm3 (0.0-0.2); Basophils % (Auto) 1 % (0-2.5); Eosinophils # (Auto) 0.2 Thou/mm3 (0.0-0.5); Eosinophils % (Auto) 2 % (0-10); Hematocrit 40.2 % (36.0-46.0); Hemoglobin 13.6 g/dL (12.0-16.0); INR 1.0 (0.9-1.3); Immature Granulocytes Auto 0.03 Thou/mm3 (0.00-0.00); Lymphocytes # (Auto) 1.9 Thou/mm3 (1.0-4.8); Lymphocytes % (Auto) 28 % (10-50); Mean Corpuscular HGB Conc 33.8 g/dl (31.0-37.0); Mean Corpuscular Hemoglobin 32.5 pg (25.0-35.0); Mean Corpuscular Volume 96 fL (80-100); Monocytes # (Auto) 0.7 Thou/mm3 (0.0-0.8); Monocytes % (Auto) 10 % (0-12); Neutrophils # (Auto) 3.9 Thou/mm3 (1.8-7.7); Neutrophils % (Auto) 58 % (37-80); Nucleated Red Blood Cell # 0.00 Thou/mm3 (0.00-0.00); Nucleated Red Blood Cell % 0 /100 WBC (0); Partial Thromboplastin Time 25.8 Seconds (22.0-36.0); Platelet Count 285 Thou/mm3 (140-440); Prothrombin Time 10.9 Seconds (9.0-12.2); RDW Standard Deviation 41.1 fL (36.4-46.3); Red Blood Count 4.19 Miln/mm3 (4.00-5.20); White Blood Count 6.8 Thou/mm3 (3.6-11.0)
[2024-11-02 06:13] LABS: Alanine Aminotransferase 27 U/L (10-49); Albumin, Serum 3.8 gm/dL (3.5-5.0); Albumin/Globulin Ratio 1.4 (1.2-2.2); Alkaline Phosphatase 64 U/L (46-116); Anion Gap 9 (7-16); Aspartate Amino Transferase 18 U/L (0-34); BUN/Creatinine Ratio 11 Ratio (12-20); Bilirubin,Total 0.2 mg/dL (0.3-1.2); Blood Urea Nitrogen 11 mg/dL (9-23); Calcium 9.0 mg/dL (8.3-10.6); Calcium (Corrected) 9.2 mg/dL (8.5-10.1); Carbon Dioxide 26.9 mMol/L (20.0-31.0); Chloride 104 mMol/L (98-107); Creatinine (Component) 1.0 mg/dL (0.6-1.3); Estimated Creatinine Clearance 66.0 mL/min (>60); Globulin 2.8 gm/dL (2.3-3.5); Glucose 95 mg/dL (74-106); Magnesium 1.5 mg/dL (1.6-2.6); Osmolality,Calculated 278 (275-295); Phosphorous 4.2 mg/dL (2.4-5.1); Potassium 4.2 mMol/L (3.4-5.1); Sodium 140 mMol/L (136-145); Total Protein 6.6 gm/dL (5.7-8.2); eGFR > 60 See Note
--- NOTE | 2024-11-02 08:00 | XR_ITS ---
Examination: Right percutaneous nephrostomy tube placement Ultrasound-guided needle access right renal collecting system Fluoroscopy AP abdomen 3 views Nephrostomy and Date and time: October 25, 2024 1032 hours INDICATIONS: 16mm proximal right ureteral calculus on CT abdomen pelvis October 29, 2024, similar calculus on CT stone study August 25, 2017 TECHNIQUE AND FINDINGS: Informed consent provided. Timeout performed. Skin prepped over the right flank and sterile drape applied hand hygiene ultrasound sterile technique Number posterior technique 1% lidocaine administered for local anesthesia Ultrasound utilized to confirm dilated right renal collecting system Utilizing ultrasonographic guidance successful 21-gauge needle puncture into the right renal collecting system Ultrasound images toward; 0.18 wire guide is introduced into the renal collecting system and down the left ureter 5 German catheter placed over the wire guide 0.35 wire guide and introduced through the catheter followed by dilator is and a 10 German 25 cm nephrostomy tube Hand injection 5 cc Cystografin demonstrates satisfactory position of the nephrostomy tube Fluoroscopy 0.9 minute radiation dose 9.44 milligray Estimated blood loss 2 cc IMPRESSION: Right percutaneous nephrostomy tube placement Fluoroscopy 0.9 minute radiation dose 19.44 milligray 3 spot fluoroscopic abdomen films
[2024-11-02 08:44] LABS: Chlamydia trachomatis PCR Negative (Not Detect); Neisseria Gonorrhoeae DNA PCR Negative (Not Detect); Trichomonas Positive (Negative)
[2024-11-02] MEDS: BIKTARVY PO (09:04)
--- NOTE | 2024-11-02 09:14 | PC.NURSE ---
PATIENT ALERT AND ORIENTED X3 GOING TO IR FOR PROCEDURE. REPORT GIVEN TO RAMIREZ ZHANG AT BEDSIDE.
[2024-11-02] MEDS: fentaNYL CIT INJ 50 mCg/ML AMP 2ML 100 MCG IVP (11:23)
[2024-11-02] MEDS: LIDOCAINE INJ PF 1% 30 ML VIAL 7 ML INFL (11:25)
--- NOTE | 2024-11-02 11:44 | PC.NURSE ---
1144 patient is awake, alert, breathing unlabored, s/p right nephrostomy tube insertion, patient tolerated procedure well, patient transferred back to room 379, bedside report given to Ana ZHANG.
[2024-11-02] MEDS: MORPHINE SULF INJ 10 MG/ML VIAL 2 MG IVP ×2 (16:19→22:18)
--- NOTE | 2024-11-02 16:21 | PC.SS ---
rounding note: Patient to have nephrostomy tube placed today. Pending Urology recs. Patient to d/c with boyfriend. Resources already provided to patient.
--- NOTE | 2024-11-02 18:05 | ESPR_ITS ---
<Statement entered by Dandre Sebastian MD - 11/03/24 22:02> 34-year-old female with a history of nephrolithiasis, HIV (possible ART noncompliance), alcohol use disorder, and prior drug use was admitted for a 16 mm right proximal ureteral stone with associated moderate to advanced hydronephrosis. She underwent successful nephrostomy tube placement on 11/02, which is now completed. Initially treated empirically for a possible UTI with ceftriaxone due to subjective fevers, but antibiotics were discontinued after negative urine cultures and symptom resolution. She was also found to have a groin rash; STI screening was positive for Trichomonas vaginalis and she was started on Flagyl. Urology continues to follow for stone management. The patient is hemodynamically stable and remains on telemetry. I?ve reviewed the note and agree with the resident's assessment and plan, with the exceptions outlined above. I personally went over the labs, imaging, home medications, and prior records, and examined the patient. The case was also reviewed with the attending physician. Please note: this document was transcribed using voice recognition technology; minor inaccuracies may be present. Dandre Sebastian DO PGY II Documentation for date of: 11/02/24 Subjective Subjective Interval history: Patient was seen and examined at bedside. No acute events took place overnight. Denies lower abdominal, or back pain, fevers, or chills, dysuria, urinary frequency, or urgency. Pt has been kept NPO in preparation for IR nephrostomy tube this morning. Latest bowel movement did not appear to the patient to have blood clots. Exam Vital Signs Temp Pulse Resp BP Pulse Ox O2 Del Method O2 Flow Rate 97.4 F 60 15 97/70 95 Room Air 3 11/02/24 16:11/02/24 16:11/02/24 16:11/02/24 16:11/02/24 16:11/02/24 16:11/02/24 11:40 Narrative Exam General: Alert and oriented x3, No apparent distress. Skin: Intact, Warm, no rashes. HEENT: Normocephalic, Atraumatic. Normal neck range of motion, Supple. Trachea midline. Respiratory: Lungs are clear to auscultation, Breath sounds are equal bilaterally with equal chest expansion. Cardiovascular: RRR, normal S1, S2, No murmurs. Distal pulses 2+ Abdomen: Abdomen soft, non-distended, without erythema, or lesions. Normotensive bowel sounds x4. Percussion tympanic. Palpation nontender in all four quadrants. No organomagely. No guarding or rebound present. Musculoskeletal/Extremities: No erythema, swelling, tenderness of any joints. No edema of BLE. DP pulses +2/3 b/l. Full active ROM of all four extremities. Neurologic: NEURO: Oriented x3, cranial nerves II to XII grossly intact. Moves extremities x4. No focal neurologic deficits noted. Psych: Thoughts linear and responses appropriate. Objective Labs 11/03/24 05:15 11/03/24 05:15 Labs: Laboratory Results - last 24 hr 11/01/24 11/02/24 10:22 05:03 WBC 6.8 RBC 4.19 Hgb 13.6 Hct 40.2 MCV 96 MCH 32.5 MCHC 33.8 RDW Std Deviation 41.1 Plt Count 285 D Neut % (Auto) 58 Lymph % (Auto) 28 Gordon % (Auto) 10 Eos % (Auto) 2 Baso % (Auto) 1 Neut # (Auto) 3.9 Lymph # (Auto) 1.9 Gordon # (Auto) 0.7 Eos # (Auto) 0.2 Baso # (Auto) 0.0 Immature Gran # (Auto) 0.03 H Absolute Nucleated RBC 0.00 Immature Gran % 0 Nucleated RBC % 0 PT 10.9 INR 1.0 APTT 25.8 Sodium 140 Potassium 4.2 Chloride 104 Carbon Dioxide 26.9 Anion Gap 9 BUN 11 Creatinine 1.0 Estim Creat Clear Calc 66.0 eGFR > 60 BUN/Creatinine Ratio 11 L Glucose 95 Calculated Osmolality 278 Calcium 9.0 Corrected Calcium 9.2 Phosphorus 4.2 Magnesium 1.5 L Total Bilirubin 0.2 L AST 18 ALT 27 Alkaline Phosphatase 64 Total Protein 6.6 Albumin 3.8 Globulin 2.8 Albumin/Globulin Ratio 1.4 Chlam trachomat DNA PCR Negative N.gonorrhoeae DNA (PCR) Negative Trichomonas DNA Probe Positive A Quality Measures Quality Measures none Assessment & Plan Assessment Current Active Medications: Generic Name Dose Route Start Last Admin Trade Name Freq PRN Reason Stop Dose Admin Acetaminophen 650 mg 10/29/24 17:26 Acetaminophen 325 Mg Tablet PO 11/28/24 17:25 Q6H PRN PAIN SCALE 1-3 (mild Biktarvy(Bictegravir 0 ea 10/31/24 10:45 11/02/24 09:04 , Emtricitabine, PO 11/30/24 10:44 1 tablet Tenofovir) 50-200-25 DAILY GENI Administration Mg Tablet Morphine Sulfate 2 mg 10/29/24 17:26 11/02/24 16:19 Morphine Sulf Inj 10 Mg/Ml Vial IVP 11/03/24 17:25 2 mg Q2H PRN Administration PAIN SCALE 7-10 (Severe Oxycodone/Acetaminophen 1 tab 10/29/24 17:26 Oxycodone/Apap 5/325 Tablet PO 11/03/24 17:25 Q6H PRN PAIN SCALE 4-6 (Moderate Plan In summary, Jyotsna Rocha is 34F with MHx of nephrolithiasis, HIV, alcohol use disorder, past drug use who is being hospitalized for Rt ureteral calculus. #Kidney Stone s/p nephrostomy tube #Asymptomatic Bacteriura vs complicated UTI, resolved Pt has hx of kidney stones and has passed stones without being otherwise symptomatic. Pt reported subjective fevers and chills during hospital days 1 and 2, denies dysuria, urinary frequncy or urgency. Patient is HIV+. CTAP: Moderate to advanced right hydronephrosis secondary to 16 mm proximal right ureteral calculus. U-Tox:positive for opiates, fentanyl, and amphetamin (10/30) UCtx were negative; ABx therapy for initial lab findings concerning for UTI stopped as a result ([id number]). Pt has received three IV 1g doses of ceftriaxone over three days. +Nephrostomy tube placed on [id number] Ordonez Plan: +Urology Dr Dewey consulted, appreciate recommendations LR IV 100ml/h Monitoring heart function, on tele #Hematochezia, resolved Consider GI bleed, GI trauma, uterine bleeding, pancreatitis, perforation, urinary tract infection, pyelonephritis, hemorrhoid. On rectal examination, there was no evidence of fissure no hemorrhoids. No blood appreciated on rectal exam. Abdomen soft, non-distended, and no TTP noted on exam. Hgb stable 14.1, No evidence of pancreatitis Lipase 21, non-pregnanat HCG negative. Plan: [place] 5/325 PRN Morphine 2mg inj Q2h PRN #Groin rash #HIV Possible ART medication non-compliance, and immunocompromise status may uninhibit opportunistic infections. Additional sextually transmitted pathogenic organisms tested for. STI screening with PCR was positive for Trichomonas vaginalis and negative for C hlamydia and Gonococcus. -pending lymphocyte subset panel -pending HSV1 and 2 antibody screening #Trichomonas vaginitis -pt will be treated at outpatient. Health Maintenance: Disposition: Med Surg Diet: Routine PPx DVT: SCD PPx GI: Code status: Full This case was discussed with my attending physician, Dr. Alvarado. Iglesia Hayden, DO PGY I Attending Provider Attestation/Addendum 34-year-old female patient with nephrolithiasis hide with hydro nephrosis, UTI status post nephrostomy tube. The patient was referred to urologist Dr. Dewey yesterday. She is on HIV treatment was restarted on Biktarvy. Her WBC count 6800. The patient has been afebrile. She denies flank pain or back pain. She has been afebrile. Discussed with housestaff
[2024-11-03] VITALS: BP 98/66; PULSE 60; PULSE 72; RESP 14; TEMP 36.1; O2SAT 96
[2024-11-03] MEDS: MORPHINE SULF INJ 10 MG/ML VIAL 2 MG IVP ×3 (03:43→09:43)
[2024-11-03 04:00] VITALS: BP 94/65; PULSE 60; RESP 14; TEMP 36.1; O2SAT 97
[2024-11-03 05:48] LABS: Basophils # (Auto) 0.0 Thou/mm3 (0.0-0.2); Basophils % (Auto) 0 % (0-2.5); Eosinophils # (Auto) 0.1 Thou/mm3 (0.0-0.5); Eosinophils % (Auto) 2 % (0-10); Hematocrit 39.5 % (36.0-46.0); Hemoglobin 13.7 g/dL (12.0-16.0); Immature Granulocytes Auto 0.03 Thou/mm3 (0.00-0.00); Lymphocytes # (Auto) 1.9 Thou/mm3 (1.0-4.8); Lymphocytes % (Auto) 26 % (10-50); Mean Corpuscular HGB Conc 34.7 g/dl (31.0-37.0); Mean Corpuscular Hemoglobin 32.9 pg (25.0-35.0); Mean Corpuscular Volume 95 fL (80-100); Monocytes # (Auto) 0.6 Thou/mm3 (0.0-0.8); Monocytes % (Auto) 9 % (0-12); Neutrophils # (Auto) 4.4 Thou/mm3 (1.8-7.7); Neutrophils % (Auto) 62 % (37-80); Nucleated Red Blood Cell # 0.00 Thou/mm3 (0.00-0.00); Nucleated Red Blood Cell % 0 /100 WBC (0); Platelet Count 263 Thou/mm3 (140-440); RDW Standard Deviation 40.5 fL (36.4-46.3); Red Blood Count 4.17 Miln/mm3 (4.00-5.20); White Blood Count 7.1 Thou/mm3 (3.6-11.0)
[2024-11-03 06:20] LABS: Alanine Aminotransferase 24 U/L (10-49); Albumin, Serum 3.8 gm/dL (3.5-5.0); Albumin/Globulin Ratio 1.4 (1.2-2.2); Alkaline Phosphatase 61 U/L (46-116); Anion Gap 8 (7-16); Aspartate Amino Transferase 16 U/L (0-34); BUN/Creatinine Ratio 12 Ratio (12-20); Bilirubin,Total 0.2 mg/dL (0.3-1.2); Blood Urea Nitrogen 13 mg/dL (9-23); Calcium 8.7 mg/dL (8.3-10.6); Calcium (Corrected) 8.9 mg/dL (8.5-10.1); Carbon Dioxide 25.9 mMol/L (20.0-31.0); Chloride 105 mMol/L (98-107); Creatinine (Component) 1.1 mg/dL (0.6-1.3); Estimated Creatinine Clearance 58.5 mL/min (>60); Globulin 2.8 gm/dL (2.3-3.5); Glucose 99 mg/dL (74-106); Magnesium 1.6 mg/dL (1.6-2.6); Osmolality,Calculated 277 (275-295); Phosphorous 4.0 mg/dL (2.4-5.1); Potassium 3.9 mMol/L (3.4-5.1); Sodium 139 mMol/L (136-145); Total Protein 6.6 gm/dL (5.7-8.2); eGFR > 60 See Note
[2024-11-03 08:00] VITALS: BP 99/64; PULSE 70; RESP 18; TEMP 36.2; O2SAT 98
[2024-11-03] MEDS: BIKTARVY PO (08:13)
[2024-11-03] MEDS: LIDOCAINE 5% 1 PATCH TOP (09:43)
--- NOTE | 2024-11-03 10:08 | PC.CM ---
I received a referral for home health on patient. I spoke to Corinne because patient is homeless. Corinne states she will be going to a home and she will follow up to see who patient's PCP. Patient will be going with a nephrostomy tube.
--- NOTE | 2024-11-03 10:34 | PC.SS ---
Addendum entered by Corinne Mir 11/03/24 16:14: SS followed up with transfer nurse and home health is still not ready yet. D/c pending Original Note: Folllow up note: SS met with patient to discuss final d/c plans. Patient had nephrostomy tube placed yesterday. Patient confirmed she will be discharged to her boyfriends friend's home at [address] [place] [address] SS updated transfer nurse for the need of services Patient was provided a list of community resources. She confirmed she is already court ordered from drug court for rehab. This is new and was just sentenced. She will need to provide all discharge paperwork to court. SS verified that patient was last seen at [facility] on October 08 [address] Carver. Patient ready for d/c today. Patient's boyfriend will provide transport or [facility].
--- NOTE | 2024-11-03 10:50 | CHAP ---
Patient was visited by a Spiritual Care Volunteer on 11/03/2024 between 0900 and 0958 and received comfort, encouragement and/or prayer.
[2024-11-03 12:00] VITALS: BP 106/73; PULSE 65; RESP 18; TEMP 36.3; O2SAT 97
--- NOTE | 2024-11-03 12:00 | PC.NURSE ---
MEDICAL TEAM C ROUNDING POC DISCUSSED WITH PATIENT.
--- NOTE | 2024-11-03 13:00 | PC.NURSE ---
DR. SOUZA AT BEDSIDE DISCUSSED POC WITH PATIENT, ALL QUESTIONS ANSWERED PT VERBALIZE UNDERSTANDING.
--- NOTE | 2024-11-03 15:04 | ESDS_ITS ---
Planned Discharge Date 11/03/24 DS: Providers Provider Date of admission: 10/29/24 17:26 Primary care physician: Physician No Primary/Family Admitting Provider: Med Noguera DO Attending Provider on Admission: JOSÉ MIGUEL Pemberton Consults: 10/29/24 13:48 Referral - Corporate Security Officer Stat Service Needed for Transfer: Urology Addl Comments:: infected urological stone 16mm, infected 10/30/24 17:32 Referral [place] Routine Comment: 11/02/24 15:49 Consult to Urology Routine Comment: 16 mm proximal right ureteral calculus Consulting Provider: Piper Dewey Instructions: S/p nephrostomy tube for right hydronephrosis. Will need evaluation for 16mm stone. Medical records to be sent to Office. Attending Provider on DC: Demetrio Alvarado MD Discharging Provider: Demetrio Alvarado MD DS: Diagnosis Problem List Completed Was Problem List Reviewed/Reconciled?: Yes Hospital Course Hospital Course Hospital course: Jyotsna Rocha is a 34-year-old female with a history of nephrolithiasis, HIV, alcohol use disorder, and past drug use who was admitted for right-sided ureteral calculus with associated moderate to severe hydronephrosis on imaging. She reported subjective fevers and chills early in her hospitalization, but denied urinary symptoms; cultures remained negative and antibiotics (ceftriaxone x3 days) were discontinued after UTI was ruled out. A nephrostomy tube was successfully placed on 02 November 2024 to relieve obstruction. She was evaluated by Urology (Dr. Dewey) and is scheduled for outpatient uroscopy and possible stent placement on 02 December 2024. During her stay, hematochezia was noted but resolved without intervention. GI and rectal exams were unremarkable, and labs remained stable. Additionally, she was found to have a groin rash and tested positive for Trichomonas vaginalis; she will complete outpatient metronidazole therapy. STI workup is pending further results. IMAGE FINDINGS: * CT abdominal pelvis showed moderate to advanced right hydronephrosis secondary to 16 mm proximal right ureteral calculus. PATIENT INSTRUCTIONS: * Follow-up with PCP within 1-2 weeks of discharge. * Given appointment scheduled with Dr. Dewey on 12/02/24 for urology intervention including possible stent and also removal of urostomy tube. * Continue taking BIKTARVY as prescribed below. * Continue taking METRONIDAZOLE twice daily until 11/10/2024 (NEW). * Take TYLENOL as needed for pain, do not exceed 4 pills in 24 hours. * Recommended referral to infectious disease for management of HIV. * Please follow-up with pending lab including CD4 count. * Continue taking medications as prescribed below. * Return to Emergency Room if symptoms persist, worsen, or new symptoms develop. ADMISSION DIAGNOSES: Unilateral right hydronephrosis 2/2 16 mm proximal right ureteral calculus S/p urostomy tube Hx HIV on BIKTARVY Trichomonas vaginalis Case was discussed with attending physician. Dandre Sebastian DO PGY II This document was transcribed using voice recognition technology. Minor inaccuracies may be present. Time Spent with Patient Time attestation: Total time spent providing and/or coordinating discharge services: Time spent: Greater than 30 minutes Home Health Home Health Referral Orders: 11/03/24 09:48 Home Health Referral Routine Reason For Exam: nephrostomy Home-Bound The patient must either because of illness or injury, need the aid of supportive devices such as crutches, canes, wheelchairs, and walkers; the use of special transportation; or the assistance of another person in order to leave their place of residence; OR have a condition such that leaving his or her home is medically contraindicated. In addition, the patient also meets the following criteria: patient is normally unable to leave the home and leaving home requires considerable taxing effort. Addendum to Home Health Certification Practitioner's Certification: I certify that the patient has been under my care in the hospital and the care of attending physician (see below). We had a [id number] encounter on (see date below). My clinical findings indicate that the patient is home bound per the above criteria and the Home Health Services noted in these orders are medically necessary. The primary reason for the [id number] encounter is related to the fact that the patient requires home health services. Date Certifying [id number] Physician Encounter: 11/03/24 Physician's Name who will Assume Oversight for HH Services: Physician No Primary/Family PACKAGE SORTER - Community Resources: Yes PT to Evaluate: Yes PT to evaluate and provide a treatmnet plan to increase patient's mobility and strength. Wound Care: No IV Therapy: No RN Safety Evaluation: Yes RN to evaluate and create a plan of care that will produce positive outcomes. Palliative Treatment: No Palliative treatment and evaluate the need for hospice. Home Health Aide - Personal Care: No Home Health Aide to assist with any ADL's. Exam Vital Signs Temp Pulse Resp BP Pulse Ox O2 Del Method O2 Flow Rate 97.3 F 65 18 106/73 97 Room Air 3 11/03/24 12:11/03/24 12:11/03/24 12:11/03/24 12:11/03/24 12:11/03/24 12:11/02/24 11:40 Narrative Exam General: Alert and oriented x3, No apparent distress. Skin: Intact, Warm, no rashes. HEENT: Normocephalic, Atraumatic. Normal neck range of motion, Supple. Trachea midline. Respiratory: Lungs are clear to auscultation, Breath sounds are equal bilaterally with equal chest expansion. Cardiovascular: RRR, normal S1, S2, No murmurs. Distal pulses 2+ Abdomen: Abdomen soft, non-distended, without erythema, or lesions. Normotensive bowel sounds x4. Percussion tympanic. Palpation nontender in all four quadrants. No organomagely. No guarding or rebound present. Musculoskeletal/Extremities: No erythema, swelling, tenderness of any joints. No edema of BLE. DP pulses +2/3 b/l. Full active ROM of all four extremities. Neurologic: NEURO: Oriented x3, cranial nerves II to XII grossly intact. Moves extremities x4. No focal neurologic deficits noted. Psych: Thoughts linear and responses appropriate. Others: urostomy tube noted, intact, no signs of infection. Discharge Plan Plan Patient Disposition: Home w/HOME HEALTH Patient condition on transfer: Stable Care Plan Goals: * Follow-up with PCP within 1-2 weeks of discharge. * Given appointment scheduled with Dr. Dewey on 12/02/24 for urology intervention including possible stent and also removal of urostomy tube. * Continue taking BIKTARVY as prescribed below. * Continue taking METRONIDAZOLE twice daily until 11/10/2024 (NEW). * Take TYLENOL as needed for pain, do not exceed 4 pills in 24 hours. * Recommended referral to infectious disease for management of HIV. * Please follow-up with pending lab including CD4 count. * Continue taking medications as prescribed below. * Return to Emergency Room if symptoms persist, worsen, or new symptoms develop. Prescriptions/Referrals Prescriptions/Med Rec: New acetaminophen 325 mg Tablet 650 mg PO Q6H PRN (Reason: Pain Scale 1-3 (Mild) Qty: 90 0RF metronidazole 250 mg Tablet 500 mg PO BID Qty: 60 0RF Continued Biktarvy 50-200-25 mg tablet 1 tab PO QDAY Patient Comments: TAKE 1 TABLET BY MOUTH EVERY DAY FOR 30 DAYS Referrals: No Primary/Family,Physician [Primary Care Provider] - Patient/Caregiver Discharge Instructions Education Materials: Anatomy of the Female Urinary Tract, Treating Kidney Stones ..., Preventing Kidney Stones, Bacterial Vaginosis, Understanding Hydronephrosis Print Language: Estonian Stand Alone Forms: Carla Award Info., Patient Portal Info Letter Discharge Order Discharge Orders: Discharge (Routine); Ordered 11/03/24 Ordered By: Dandre Sebastian Quality Discharge Quality Measures VTE prophylaxis Attestestation Attestation I discussed with and supervised the resident physician who took care of this patient. I agree with the assessment and discharge plan as above. Follow-up with primary care provider as scheduled. Return to the emergency room for recurrent symptoms.
[2024-11-03 16:00] VITALS: BP 110/78; PULSE 63; RESP 19; TEMP 36.4; O2SAT 98
--- NOTE | 2024-11-03 16:17 | PC.NURSE ---
SPOKE TO [facility] [employer] [employer] PT IS NOT SET UP WITH HOME HEALTH AND WILL NEED IT TO BE DC FOR MANAGMENT OF NEPHROSTOMY DRAIN.
[2024-11-03 20:00] VITALS: BP 122/62; PULSE 71; PULSE 88; RESP 16; TEMP 36.3; O2SAT 92
[2024-11-04] VITALS: BP 98/54; PULSE 68; RESP 18; TEMP 37.1; O2SAT 95
[2024-11-04 04:00] VITALS: BP 99/60; PULSE 56; PULSE 63; RESP 16; TEMP 36.6; O2SAT 97
[2024-11-04 07:43] VITALS: BP 105/66; PULSE 64; RESP 15; TEMP 36.6; O2SAT 97
[2024-11-04 08:00] VITALS: PULSE 70
[2024-11-04] MEDS: BIKTARVY PO (08:19)
--- NOTE | 2024-11-04 10:58 | PC.CM ---
Addendum entered by Dea Mayers RN 11/04/24 20:07: [facility] accepted patient. Start of care date set for tomorrow. 11/05. I faxed over discharge summary. Original Note: I spoke to [facility] today to verify they are able to accept patient. They stated they would be able to follow and they can open patient tomorrow. I updated Corinne KRUGER.
[2024-11-04 11:54] VITALS: BP 105/83; PULSE 77; RESP 17; TEMP 36.9; O2SAT 99
[2024-11-04 12:00] VITALS: PULSE 65
--- NOTE | 2024-11-04 15:07 | ESDS_ITS ---
Planned Discharge Date 11/04/24 DS: Providers Provider Date of admission: 10/29/24 17:26 Primary care physician: Physician No Primary/Family Admitting Provider: Med Noguera DO Attending Provider on Admission: JOSÉ MIGUEL Pemberton Consults: 10/29/24 13:48 Referral - [facility] [employer] Stat Service Needed for Transfer: Urology Addl Comments:: infected urological stone 16mm, infected 10/30/24 17:32 Referral [place] Routine Comment: 11/02/24 15:49 Consult to Urology Routine Comment: 16 mm proximal right ureteral calculus Consulting Provider: Piper Dewey Instructions: S/p nephrostomy tube for right hydronephrosis. Will need evaluation for 16mm stone. Medical records to be sent to Office. Attending Provider on DC: Demetrio Alvarado MD Discharging Provider: Demetrio Alvarado MD DS: Diagnosis Problem List Completed Was Problem List Reviewed/Reconciled?: Yes Hospital Course Hospital Course Hospital course: Jyotsna Rocha is a 34-year-old female with a history of nephrolithiasis, HIV, alcohol use disorder, and past drug use who was admitted for right-sided ureteral calculus with associated moderate to severe hydronephrosis on imaging. She reported subjective fevers and chills early in her hospitalization, but denied urinary symptoms; cultures remained negative and antibiotics (ceftriaxone x3 days) were discontinued after UTI was ruled out. A nephrostomy tube was successfully placed on 02 November 2024 to relieve obstruction. She was evaluated by Urology (Dr. Dewey) and is scheduled for outpatient uroscopy and possible stent placement on 02 December 2024. During her stay, hematochezia was noted but resolved without intervention. GI and rectal exams were unremarkable, and labs remained stable. Additionally, she was found to have a groin rash and tested positive for Trichomonas vaginalis; she will complete outpatient metronidazole therapy. STI workup is pending further results. IMAGE FINDINGS: * CT abdominal pelvis showed moderate to advanced right hydronephrosis secondary to 16 mm proximal right ureteral calculus. PATIENT INSTRUCTIONS: * Follow-up with PCP within 1-2 weeks of discharge. * Given appointment scheduled with Dr. Dewey on 12/02/24 for urology intervention including possible stent and also removal of urostomy tube. * Continue taking BIKTARVY as prescribed below. * Continue taking METRONIDAZOLE twice daily until 11/10/2024 (NEW). * Take TYLENOL as needed for pain, do not exceed 4 pills in 24 hours. * Recommended referral to infectious disease for management of HIV. * Please follow-up with pending lab including CD4 count. * Continue taking medications as prescribed below. * Return to Emergency Room if symptoms persist, worsen, or new symptoms develop. ADMISSION DIAGNOSES: Unilateral right hydronephrosis 2/2 16 mm proximal right ureteral calculus S/p urostomy tube Hx HIV on BIKTARVY Trichomonas vaginalis This case was discussed with my attending physician, Dr. Christiano Hayden, DO PGY I This document was transcribed using voice recognition technology. Minor inaccuracies may be present. Time Spent with Patient Time attestation: Total time spent providing and/or coordinating discharge services: Time spent: Greater than 30 minutes Home Health Home Health Referral Orders: 11/03/24 09:48 Home Health Referral Routine Reason For Exam: nephrostomy Home-Bound The patient must either because of illness or injury, need the aid of supportive devices such as crutches, canes, wheelchairs, and walkers; the use of special transportation; or the assistance of another person in order to leave their place of residence; OR have a condition such that leaving his or her home is medically contraindicated. In addition, the patient also meets the following criteria: patient is normally unable to leave the home and leaving home requires consi derable taxing effort. Addendum to Home Health Certification Practitioner's Certification: I certify that the patient has been under my care in the hospital and the care of attending physician (see below). We had a ukyu-be-jtrf encounter on (see date below). My clinical findings indicate that the patient is home bound per the above criteria and the Home Health Services noted in these orders are medically necessary. The primary reason for the dcfc-wy-[id number] encounter is related to the fact that the patient requires home health services. Date Certifying Zkhl-gc-Tcmi Physician Encounter: 11/03/24 Physician's Name who will Assume Oversight for Services: Susie Carver GENERATOR ASSEMBLER - Community Resources: Yes PT to Evaluate: Yes PT to evaluate and provide a treatmnet plan to increase patient's mobility and strength. Wound Care: No IV Therapy: No RN Safety Evaluation: Yes RN to evaluate and create a plan of care that will produce positive outcomes. Palliative Treatment: No Palliative treatment and evaluate the need for hospice. Home Health Aide - Personal Care: No Home Health Aide to assist with any ADL's. Exam Vital Signs Temp Pulse Resp BP Pulse Ox O2 Del Method O2 Flow Rate 98.4 F 65 17 105/83 99 Room Air 3 11/04/24 11:54 11/04/24 12:00 11/04/24 11:54 11/04/24 11:54 11/04/24 11:54 11/04/24 07:43 11/02/24 11:40 Narrative Exam General: Alert and oriented x3, No apparent distress. Skin: Intact, Warm, no rashes. HEENT: Normocephalic, Atraumatic. Normal neck range of motion, Supple. Trachea midline. Respiratory: Lungs are clear to auscultation, Breath sounds are equal bilaterally with equal chest expansion. Cardiovascular: RRR, normal S1, S2, No murmurs. Distal pulses 2+ Abdomen: Abdomen soft, non-distended, without erythema, or lesions. Normotensive bowel sounds x4. Percussion tympanic. Palpation nontender in all four quadrants. No organomagely. No guarding or rebound present. Musculoskeletal/Extremities: No erythema, swelling, tenderness of any joints. No edema of BLE. DP pulses +2/3 b/l. Full active ROM of all four extremities. Neurologic: NEURO: Oriented x3, cranial nerves II to XII grossly intact. Moves extremities x4. No focal neurologic deficits noted. Psych: Thoughts linear and responses appropriate. Discharge Plan Plan Patient Disposition: Home w/HOME HEALTH Patient condition on transfer: Stable Care Plan Goals: * Follow-up with PCP within 1-2 weeks of discharge. * Given appointment scheduled with Dr. Dewey on 12/02/24 for urology intervention including possible stent and also removal of urostomy tube. * Continue taking BIKTARVY as prescribed below. * Continue taking METRONIDAZOLE twice daily until 11/10/2024 (NEW). * Take TYLENOL as needed for pain, do not exceed 4 pills in 24 hours. * Recommended referral to infectious disease for management of HIV. * Please follow-up with pending lab including CD4 count. * Continue taking medications as prescribed below. * Return to Emergency Room if symptoms persist, worsen, or new symptoms develop. Prescriptions/Referrals Prescriptions/Med Rec: New acetaminophen 325 mg Tablet 650 mg PO Q6H PRN (Reason: Pain Scale 1-3 (Mild) Qty: 90 0RF metronidazole 250 mg Tablet 500 mg PO BID Qty: 60 0RF Continued Biktarvy 50-200-25 mg tablet 1 tab PO QDAY Patient Comments: TAKE 1 TABLET BY MOUTH EVERY DAY FOR 30 DAYS Referrals: No Primary/Family,Physician [Primary Care Provider] - Patient/Caregiver Discharge Instructions Education Materials: Anatomy of the Female Urinary Tract, Treating Kidney Stones ..., Preventing Kidney Stones, Bacterial Vaginosis, Understanding Hydronephrosis Print Language: Swazi Stand Alone Forms: Carla Award Info., Patient Portal Info Letter Discharge Order Discharge Orders: Discharge (Routine); Ordered 11/04/24 Ordered By: Jeremy Johnson Quality Discharge Quality Measures VTE prophylaxis Attestestation MD Attestation I discussed with and supervised the resident physician who took care of this patient. I agree with the assessment and discharge plan as above. Follow-up with primary care provider as scheduled. Return to the emergency room for recurrent symptoms.
[2024-11-04 22:06] LABS: CD19 Percentage 6 % (6-29); CD19, Absolute 126 cells/uL (110-660); CD3 Percentage 90 % (57-85); CD3, Absolute 2046 cells/uL (840-3060); CD3-CD16+CD56+ % 4 % (4-25); CD3-CD16+CD56+ (Abs) 87 cells/uL (70-760); CD4 Percentage 40 % (30-61); CD4, Absolute 899 cells/uL (490-1740); CD4/CD8 Ratio 0.77 (0.86-5.00); CD8 Percentage 52 % (12-42); CD8, Absolute 1171 cells/uL (180-1170)
[2024-11-05 06:32] LABS: Lymphocytes, Absolute 2264 cells/uL (850-3900)
--- NOTE | 2024-11-05 07:50 | ESCONSULT_ITS ---
RE: RACHAEL BRITO : 1990 DATE OF CONSULTATION: 11/03/2024 CHIEF COMPLAINT: Abdominal pain, has history of stone disease in the past which she subsequently had passed. HISTORY OF PRESENT ILLNESS: This is a 34-year-old female. She has a past medical history of alcohol use disorder, tobacco use disorder, remote history of drug use. The patient was admitted with a history of right-sided abdominal pain with nausea, no vomiting, no fever, no gross hematuria. She also has a past medical history of HIV. She started having abdominal pain. There is 3/10 dull pain over the right flank. She also complained of lack of energy, dizziness, lightheadedness. She has no recent history of urinary tract infection or gross hematuria. ALLERGY: PENICILLIN. FAMILY HISTORY: Diabetes in mother. PAST MEDICAL HISTORY: Genitourinary disorder and kidney stones and trichomonas and herpes zoster. PAST SURGICAL HISTORY: surgery, tubal ligation, smokes half a pack of cigarettes daily. She is recently [facility] from the [place] [facility]. She has 5 children. She has used marijuana in the past. In the emergency room, she had a CAT scan done, which revealed a 1.4 cm stone in the proximal ureter with advanced hydronephrosis right kidney. She had placement of percutaneous nephrostomy. For examination RN Ana, is my helmet hat brim cutter. The patient consented for sensitive health examination. PHYSICAL EXAMINATION: General: Condition is satisfactory. She is alert and oriented x3. Not in acute distress. HEENT: Normocephalic and atraumatic. Eyes, no anemia or jaundice. Neck: Supple. Trachea is central. Thyroid is not enlarged. Extremities: Reveal no edema, cyanosis or clubbing. Vital Signs: Stable. They are in HPI, in EMR. Chest: Symmetrical. Heart: Regular rate and rhythm. Abdomen: No masses. Liver, spleen, kidney not palpable. She has placement of percutaneous nephrostomy right side. VARIOUS LABS: Her WBC is 8.8, hemoglobin is 14.1, BUN is 13, creatinine is 1.1. Urine revealed 2+ protein and is cloudy. CAT scan is reviewed by me. This revealed advanced hydronephrosis right side with 1.4 cm stone in the proximal ureter. She is status post placement of right percutaneous nephrostomy. PLAN: 1. Urine for culture and sensitivity. 2. Treat with antibiotics according to the culture and sensitivity report. 3. For her advanced hydronephrosis, I looked at the CAT scan. She has hardly any parenchyma left. My plan at this time is to do a cystoscopy, right retrograde pyelogram, placement of right ureteral stent, and removal of percutaneous nephrostomy if possible. The patient after that is going to need a renal scan to assess the function of the kidney. If she has no function in the kidney on the right side, she may need a right robotic nephrectomy. All above issues were discussed with the patient in great detail. Questions were answered to her satisfaction. She verbalized understanding. She will be scheduled for a cysto retrograde ureteroscopy, placement of stent removal of the percutaneous nephrostomy on an outpatient basis. DT: 14:53:12 TT: 17:01:00 Ref: [id number] - TID: [id number] MTDD
[2024-11-05 22:04] LABS: HSV1 IgG Type Specific Ab 19.60 INDEX
[2024-11-06 06:20] LABS: HSV2 IgG Type Specific Ab <0.90 INDEX
== END 2024-11-04 13:54 | disposition home health service (06) | DRG 465 ==
LOC: SERX 16:36 → SERHOLD 18:24 → S3SX 21:07
PROVIDERS: Admitting Provider Student in an Organized Health Care Education/Training Program; Emergency Provider Emergency Medicine
DX: N13.2 Hydronephrosis with renal and ureteral calculous obstruction (principal); K92.1 Melena; A59.01 Trichomonal vulvovaginitis; Z21 Asymptomatic human immunodeficiency virus [HIV] infection status; F15.10 Other stimulant abuse, uncomplicated; B02.9 Zoster without complications; F17.210 Nicotine dependence, cigarettes, uncomplicated; Z71.51 Drug abuse counseling and surveillance of drug abuser; Z87.442 Personal history of urinary calculi; Z88.0 Allergy status to penicillin; Z79.899 Other long term (current) drug therapy
CPT/HCPCS: 36415; 74177; 74425; 80053; 80307; 80320; 81001; 83690; 83735; 84100; 84703; 85025; 85610; 85730; 86355; 86357; 86359; 86360; 86695; 86696; 86850; 86900; 86901; 87086; 87491; 87591; 87661; 96361; 96365; 96375; 99284; A4649; C1729; C1769; J0696; J2270; J3010; J3475; J3490; J7050; J7120; Q9958; Q9967; A9270; G0480

== ENCOUNTER 2024-11-13 13:54 | Emergency (ER) | payer MEDICAID, SELFPAY ==
--- NOTE | 2024-11-13 | XR_ITS ---
Examination: Right nephrostogram Fluoroscopy AP abdomen single view Date and time: November 23, 2024 1433 hours INDICATIONS: Right nephrostomy tube is not draining TECHNIQUE AND FINDINGS: Hand-injection 4 cc [id number]-300 Nephrostomy tube is partially pulled out IMPRESSION: Nephrostomy tube is partially full hold out. This patient instructed to return on Saturday when nursing staff is available for intravenous pain medication
[2024-11-13 14:07] VITALS: BP 104/71; PULSE 87; RESP 16; TEMP 36.8; O2SAT 98; BMI 26.1
--- NOTE | 2024-11-13 14:25 | PD.EDRME ---
Rapid Medical Screening Exam E Arrival date/time: 11/13/24 13:54 34-year-old female with no known medical history was sent to the emergency room by her home health nurse for an obstructed nephrostomy tube. Patient states her nephrostomy tube that was placed on 12/02/2024 is not draining. I have greeted and performed a focused initial assessment of this patient. A comprehensive ED assessment and evaluation of the patient, analysis of all test results, and completion of the medical decision making process will be conducted by additional ED providers. Chief Complaint: Wound Recheck / Suture Removal Time Seen by Provider: 11/13/24 14:01 Vital signs: Vital Signs Temperature 98.2 F 11/13/24 14:07 Pulse Rate 87 11/13/24 14:07 Respiratory Rate 16 11/13/24 14:07 Blood Pressure 104/71 11/13/24 14:07 Pulse Oximetry (%) 98 11/13/24 14:07 Oxygen Delivery Method Room Air 11/13/24 14:07 Vital signs reviewed by provider: Yes
[2024-11-13 15:12] LABS: Basophils # (Auto) 0.0 Thou/mm3 (0.0-0.2); Basophils % (Auto) 0 % (0-2.5); Eosinophils # (Auto) 0.1 Thou/mm3 (0.0-0.5); Eosinophils % (Auto) 1 % (0-10); Hematocrit 39.3 % (36.0-46.0); Hemoglobin 13.8 g/dL (12.0-16.0); Immature Granulocytes Auto 0.04 Thou/mm3 (0.00-0.00); Lymphocytes # (Auto) 1.9 Thou/mm3 (1.0-4.8); Lymphocytes % (Auto) 23 % (10-50); Mean Corpuscular HGB Conc 35.1 g/dl (31.0-37.0); Mean Corpuscular Hemoglobin 33.1 pg (25.0-35.0); Mean Corpuscular Volume 94 fL (80-100); Monocytes # (Auto) 0.5 Thou/mm3 (0.0-0.8); Monocytes % (Auto) 7 % (0-12); Neutrophils # (Auto) 5.5 Thou/mm3 (1.8-7.7); Neutrophils % (Auto) 68 % (37-80); Nucleated Red Blood Cell # 0.00 Thou/mm3 (0.00-0.00); Nucleated Red Blood Cell % 0 /100 WBC (0); Platelet Count 297 Thou/mm3 (140-440); RDW Standard Deviation 41.8 fL (36.4-46.3); Red Blood Count 4.17 Miln/mm3 (4.00-5.20); White Blood Count 8.1 Thou/mm3 (3.6-11.0)
[2024-11-13 15:27] LABS: Collection Type, Urine Catheter
[2024-11-13 15:27] LABS: Alanine Aminotransferase 19 U/L (10-49); Albumin, Serum 4.2 gm/dL (3.5-5.0); Albumin/Globulin Ratio 1.6 (1.2-2.2); Alkaline Phosphatase 54 U/L (46-116); Anion Gap 8 (7-16); Aspartate Amino Transferase 19 U/L (0-34); BUN/Creatinine Ratio 16 Ratio (12-20); Bilirubin,Total 0.3 mg/dL (0.3-1.2); Blood Urea Nitrogen 16 mg/dL (9-23); Calcium 9.2 mg/dL (8.3-10.6); Calcium (Corrected) 9.2 mg/dL (8.5-10.1); Carbon Dioxide 27.4 mMol/L (20.0-31.0); Chloride 105 mMol/L (98-107); Creatinine (Component) 1.0 mg/dL (0.6-1.3); Estimated Creatinine Clearance 71.5 mL/min (>60); Globulin 2.7 gm/dL (2.3-3.5); Glucose 96 mg/dL (74-106); Osmolality,Calculated 280 (275-295); Potassium 3.8 mMol/L (3.4-5.1); Sodium 140 mMol/L (136-145); Total Protein 6.9 gm/dL (5.7-8.2); eGFR > 60 See Note
[2024-11-13 15:42] LABS: Bacteria,Urine 1+; Bilirubin,Urine Negative (Negative); Blood,Urine 3+ (Negative); Clarity,Urine Clear (Clear/Hazy); Color,Urine Yellow (Lt Yel-Yel); Glucose, Urine Negative (Negative); Hyaline Casts,Urine < 1 /hpf (0-1); Ketones,Urine Negative (Negative); Leukocyte Esterase,Urine Positive (Negative); Nitrite,Urine Negative (Negative); PH,Urine 6.0 (5.0-7.0); Protein,Urine Negative (Neg - Trace); RBC,Urine 7 /hpf (0-3); Specific Gravity,Urine 1.024 (1.001-1.035); Squamous Epithelial Cell,Urine 4 /hpf (0-5); Urobilinogen,Urine Negative mg/dL (0.0-1.0); WBC,Urine 73 /hpf (0-5)
[2024-11-13 15:44] LABS: Culture Indicated,Urine Yes
[2024-11-13] MEDS: cefTRIAXone 1,000 MG, LIDOCAINE 1% 20 ML 2.1 ML IM (19:13)
--- NOTE | 2024-11-13 19:19 | EDNOTE_ITS ---
ED Recheck Abnl Lab Rx-RME/HPI General Chief Complaint: Wound Recheck / Suture Removal Stated Complaint: Right side nephrostomy tube not draining Time Seen by Provider: 11/13/24 14:01 Arrival date/time: 11/13/24 13:54 RME / HPI RME / HPI narrative: 11/13/24 13:54 34-year-old female with no known medical history was sent to the emergency room by her home health nurse for an obstructed nephrostomy tube. Patient states her nephrostomy tube that was placed on 12/02/2024 is not draining. I have greeted and performed a focused initial assessment of this patient. A comprehensive ED assessment and evaluation of the patient, analysis of all test results, and completion of the medical decision making process will be conducted by additional ED providers. Dr. Leong?s Main ED Evaluation: 34yo female previously diagnosed with proximal ureteral stone with advanced hydronephrosis presenting with dislodged right nephrostomy tube. Denies any fever, chills, N/V, or lassitude. Related Data Home Medications ?Medication ?Instructions ?Recorded ?Confirmed bictegravir 50 mg-emtricitabine 1 tab PO QDAY 10/29/24 10/29/24 200 mg-tenofovir alafenam 25 mg tablet (Biktarvy) Previous Rx's ?Medication ?Instructions ?Recorded acetaminophen 325 mg tablet 650 mg (2 x 325 mg) PO Q6H PRN 11/03/24 Pain Scale 1-3 (Mild #90 tabs metronidazole 250 mg tablet 500 mg (2 x 250 mg) PO BID #60 tabs 11/03/24 Allergies Allergy/AdvReac Type Severity Reaction Status Date / Time Penicillins Allergy Intermediate Rash Verified 11/13/24 14:03 Review of Systems Review of Systems Systems Reviewed: All systems reviewed, normal except as documented Past Medical History Past Medical History CARDIAC: Negative Cardiac Disorders or Congestive Heart Failure RESPIRATORY: Negative Chronic Obstructive Pulmonary Disease (COPD) or Asthma GENITOURINARY: Positive Genitourinary Disorders and Kidney Stones; Negative Renal Disease ENDOCRINE: Negative Diabetes Mellitus Type 1 or Diabetes Mellitus Type 2 HEMATOLOGIC: Negative Sickle Cell Disease OTHER HISTORY: Positive Human Immunodeficiency Virus (HIV) Social History SMOKING STATUS: Current every day smoker SUBSTANCE USE: does not use ED Exam Narrative Physical exam: GENERAL APPEARANCE: alert and oriented x 4, nontoxic appearing, no acute distress VITALS: All vitals were reviewed and the pulse ox is 98% on room air, which is normal according to my interpretation. HEENT: Normocephalic, atraumatic; pupils equal, round, reactive to light; EOMI; mucous membranes pink, moist; oropharynx clear NECK: Supple LUNGS: CTABL; no wheezes, no rales, no rhonchi HEART: Regular rate, regular rhythm; normal S1, S2; no murmurs ABDOMEN: non distended; normal BS; soft, no tenderness, no guarding, no rebound BACK: Mild right flank tenderness//nephrostomy tube in place with bandage present EXTREMITIES: atraumatic; no edema NEUROLOGIC: awake; alert and oriented x4; cranial nerves II-XII grossly intact; no focal sensory or motor deficits PSYCHIATRIC: appropriate mood and affect SKIN: warm, dry, normal color; no rashes Course Quality Measures none Orders Category Date Time Status IR nephrostogram RT Stat Exams 11/13/24 Completed CBC Stat Lab 11/13/24 14:44 Completed CMP [Comprehensive Metabolic Panel] Stat Lab 11/13/24 14:44 Completed UA, C/S IF [Urinalysis, C/S if Indicated] Stat Lab 11/13/24 15:22 Completed Urine Culture Stat Lab 11/13/24 15:22 Received cefTRIAXone [Rocephin] 1,000 mg Med 11/13/24 18:42 Discontinued Lidocaine 1% 20 ml [Xylocaine 1% 20 ML] 2.1 ml IM X1 Vital Signs Vital signs: Vital Signs Temperature 98.2 F 11/13/24 14:07 Pulse Rate 87 11/13/24 14:07 Respiratory Rate 16 11/13/24 14:07 Blood Pressure 104/71 11/13/24 14:07 Pulse Oximetry (%) 98 11/13/24 14:07 Oxygen Delivery Method Room Air 11/13/24 14:07 Recheck / Abnormal Lab / Rx MDM Narrative MDM Narrative:: Scribe Attestation: 11/13/24 Sarai Lopez am scribing for and in the presence of Dr. Leong. 34yo female previously diagnosed with proximal ureteral stone with advanced hydronephrosis presenting with dislodged right nephrostomy tube. Denies any fever, chills, N/V, or lassitude. Please see PE findings. On extended course of metronidazole. Lab markers demonstrate normal CBC and chemistries. UA demon strates evidence of UTI, although significant reduction of pyuria and bacteriuria. Patient administered IV Rocephin and without signs of sepsis. IR evaluation suggests returning Saturday at 9am for re-insertion in the absence of signs or symptoms of sepsis. Agree with disposition. Will be discharged home, instructed to continue with metronidazole, and follow-up with IR on saturday pending further evaluation. Diagnosis Dislodged nephrostomy tube/UTI/ R sided hydronephrosis Patient data External records reviewed:: [facility] previous records (Per chart review, patient was seen here on 10/29/24 for hydronephrosis.) Clinical information provided by:: patient Social determinants that could affect healthcare access:: none Patient has the following chronic illnesses:: HIV How is presenting disease/condition affected by chronic disease/condition?: uneffected by Evaluation data The following diagnostics were reviewed and interpreted by me:: lab results and radiology exam(s) Lab and/or radiology exams considered but not ordered:: none Interpretation Summary: [facility] Report Signed Patient: RACHAEL BRITO Record#: [id number] Birthdate: 1990 Age/Sex: 34 / F Location: [facility] Attending Dr: Ordering Physician: Jae Ferrara Date of Service: 11/13/24 Procedure(s): IR nephrostogram RT Accession Number(s): [id number] cc: Jae Ferrara; Mikhail León MD~ Examination: Right nephrostogram Fluoroscopy AP abdomen single view Date and time: November 23, 2024 1433 hours INDICATIONS: Right nephrostomy tube is not draining TECHNIQUE AND FINDINGS: Hand-injection 4 cc [id number]-300 Nephrostomy tube is partially pulled out IMPRESSION: Nephrostomy tube is partially full hold out. This patient instructed to return on Saturday when nursing staff is available for intravenous pain medication Dictated By: Mikhail León MD Signed By: <Electronically signed by Mikhail León MD in OV> 11/13/24 1519 Medications / Prescriptions Medications or Prescriptions considered but not ordered:: none Medication administrations:: Medication Administration History Discontinued Medications Ceftriaxone Sodium 1,000 mg/ (Lidocaine HCl 2.1 ml) 0 mg IM X1 ONE Stop: 11/13/24 18:43 Last Admin: 11/13/24 19:13 Dose: 1,000 mg Documented By: ROXANNE see above Consultations Consultation(s) initiated? (list below): No Diagnosis Recheck Differential Diagnosis: other (nephrostomy tube malfunction, nephrostomy tube dislodgement, clogged nephrostomy tube) Most likely diagnosis given after review of the tests above:: see clinical impression below Admission Indicated Admission indicated?: not indicated Admission Request Was there a request for admission?: No Disposition Plan Disposition Plan: Discharge Discharge Attestation Discharge Attestation: The patient and all family members were given an opportunity to ask questions and understood the discharge instructions. Discharge instructions specifically effects, indications for sooner follow up or return to the emergency department, and the expected course of current diagnosis. Patient condition: Stable Discharge Plan Plan Patient Disposition: HOME (Self Care) Prescriptions/Referrals Prescriptions/Med Rec: No Action Biktarvy 50-200-25 mg tablet 1 tab PO QDAY Patient Comments: TAKE 1 TABLET BY MOUTH EVERY DAY FOR 30 DAYS acetaminophen 325 mg Tablet 650 mg PO Q6H PRN (Reason: Pain Scale 1-3 (Mild) Qty: 90 0RF metronidazole 250 mg Tablet 500 mg PO BID Qty: 60 0RF Referrals: Susie Carver PA-C [Primary Care Provider] - In 1 week Problem List Clinical Impression: Urinary tract infection, Hydronephrosis Impression comment: Dislodged nephrostomy tube Patient/Caregiver Discharge Instructions Discharge Activity: resume usual activities Other Activity Instructions:: Force fluids / meds as directed and follow up with IR on Mon am Diet Instructions: Regular Education Materials: Urinary Tract Infections in Women Additional Instructions: Force fluids / continue current meds and follow up w/ IR on Mon AM Print Language: [place] Stand Alone Forms: Carla Award Info., Patient Portal Info Letter
[2024-11-13 19:39] VITALS: BP 116/72; PULSE 72; RESP 16; TEMP 36.8; O2SAT 98
== END 2024-11-13 19:41 | disposition home or self-care (01) ==
PROVIDERS: Nurse Practitioner Family; Emergency Provider Emergency Medicine; PCP Physician Assistant
DX: T83.022A Displacement of nephrostomy catheter, initial encounter (principal); N13.6 Pyonephrosis; Y83.2 Surgical operation with anastomosis, bypass or graft as the cause of abnormal reaction of the patient, or of later complication, without mention of misadventure at the time of the procedure
CPT/HCPCS: 50431; 36415; 80053; 81001; 85025; 87077; 87086; 87186; 96372; 99283; J0696; J3490; Q9967

== ENCOUNTER 2024-11-16 07:14 | Emergency (ER) | payer MEDICAID, SELFPAY ==
[2024-11-16] VITALS (9 sets, daily range): BP systolic 106–137; BP diastolic 71–101; PULSE 70–87; RESP 17–21; TEMP 36.7; O2SAT 98–100; BMI 28.7
--- NOTE | 2024-11-16 | XR_ITS ---
Examination: Right percutaneous nephrostomy catheter placement Right breast sonogram Ultrasound-guided renal access right renal collecting system Fluoroscopy AP abdomen 2 views Date and time: November 16, 2024 0944 hours INDICATIONS: Right hydronephrosis secondary to proximal right ureteral calculus, need for temporary decompression TECHNIQUE AND FINDINGS: Informed consent provided. Timeout performed. Skin prepped over the right flank and sterile drape applied maximum barrier sterile technique hand hygiene ultrasound sterile technique 1% lidocaine administered for local anesthesia Ultrasound utilized to confirm dilated right renal collecting system Utilizing ultrasonographic guidance successful micropuncture right renal collecting system with a 21-gauge needle 0.18 wire guide is introduced through the needle followed by 5 [place] catheter, dilators and a 10 [place] 22 cm nephrostomy drainage catheter Hand-injection 10 cc Cystografin demonstrates satisfactory position of the nephrostomy catheter Estimated blood loss 2 cc IMPRESSION: Successful right percutaneous nephrostomy catheter placement Fluoroscopy 1.6 minutes radiation dose 19.35 milligray 2 spot fluoroscopic abdomen films
--- NOTE | 2024-11-16 07:26 | PD.EDRME ---
Rapid Medical Screening Exam RME Arrival date/time: 11/16/24 07:14 34-year-old female with a history of a 16 mm right ureteral stone presents to the emergency room with a chief complaint of a partially pulled out nephrostomy tube. Patient was seen here 3 days ago and instructed to return today so they can replace and insert the nephrostomy tube. I have greeted and performed a focused initial assessment of this patient. A comprehensive ED assessment and evaluation of the patient, analysis of all test results, and completion of the medical decision making process will be conducted by additional ED providers. Chief Complaint: Urogenital-Female Time Seen by Provider: 11/16/24 07:22 Vital signs: Vital Signs Temperature 98.0 F 11/16/24 07:21 Pulse Rate 87 11/16/24 07:21 Respiratory Rate 19 11/16/24 07:21 Blood Pressure 106/71 11/16/24 07:21 Pulse Oximetry (%) 99 11/16/24 07:21 Oxygen Delivery Method Room Air 11/16/24 07:21 Vital signs reviewed by provider: Yes
[2024-11-16 08:05] LABS: Basophils # (Auto) 0.0 Thou/mm3 (0.0-0.2); Basophils % (Auto) 1 % (0-2.5); Eosinophils # (Auto) 0.1 Thou/mm3 (0.0-0.5); Eosinophils % (Auto) 2 % (0-10); Hematocrit 40.5 % (36.0-46.0); Hemoglobin 13.8 g/dL (12.0-16.0); Immature Granulocytes Auto 0.02 Thou/mm3 (0.00-0.00); Lymphocytes # (Auto) 1.2 Thou/mm3 (1.0-4.8); Lymphocytes % (Auto) 18 % (10-50); Mean Corpuscular HGB Conc 34.1 g/dl (31.0-37.0); Mean Corpuscular Hemoglobin 32.6 pg (25.0-35.0); Mean Corpuscular Volume 96 fL (80-100); Monocytes # (Auto) 0.5 Thou/mm3 (0.0-0.8); Monocytes % (Auto) 7 % (0-12); Neutrophils # (Auto) 4.8 Thou/mm3 (1.8-7.7); Neutrophils % (Auto) 73 % (37-80); Nucleated Red Blood Cell # 0.00 Thou/mm3 (0.00-0.00); Nucleated Red Blood Cell % 0 /100 WBC (0); Platelet Count 254 Thou/mm3 (140-440); RDW Standard Deviation 42.7 fL (36.4-46.3); Red Blood Count 4.23 Miln/mm3 (4.00-5.20); White Blood Count 6.6 Thou/mm3 (3.6-11.0)
[2024-11-16 08:08] LABS: Collection Type, Urine Catheter
[2024-11-16 08:15] LABS: INR 1.0 (0.9-1.3); Partial Thromboplastin Time 25.9 Seconds (22.0-36.0); Prothrombin Time 10.9 Seconds (9.0-12.2)
[2024-11-16 08:16] LABS: Alanine Aminotransferase 15 U/L (10-49); Albumin, Serum 4.1 gm/dL (3.5-5.0); Albumin/Globulin Ratio 1.5 (1.2-2.2); Alkaline Phosphatase 52 U/L (46-116); Anion Gap 6 (7-16); Aspartate Amino Transferase 17 U/L (0-34); BUN/Creatinine Ratio 10 Ratio (12-20); Bilirubin,Total 0.4 mg/dL (0.3-1.2); Blood Urea Nitrogen 10 mg/dL (9-23); Calcium 8.9 mg/dL (8.3-10.6); Calcium (Corrected) 8.9 mg/dL (8.5-10.1); Carbon Dioxide 26.0 mMol/L (20.0-31.0); Chloride 107 mMol/L (98-107); Creatinine (Component) 1.0 mg/dL (0.6-1.3); Estimated Creatinine Clearance 66.3 mL/min (>60); Globulin 2.8 gm/dL (2.3-3.5); Glucose 99 mg/dL (74-106); Osmolality,Calculated 276 (275-295); Potassium 4.4 mMol/L (3.4-5.1); Sodium 139 mMol/L (136-145); Total Protein 6.9 gm/dL (5.7-8.2); eGFR > 60 See Note
[2024-11-16 08:18] LABS: Bilirubin,Urine Negative (Negative); Blood,Urine Trace (Negative); Clarity,Urine Turbid (Clear/Hazy); Color,Urine Lt-Yellow (Lt Yel-Yel); Glucose, Urine Negative (Negative); Ketones,Urine Negative (Negative); Leukocyte Esterase,Urine Positive (Negative); Nitrite,Urine Negative (Negative); PH,Urine 6.0 (5.0-7.0); Protein,Urine Negative (Neg - Trace); RBC,Urine 9 /hpf (0-3); Specific Gravity,Urine 1.015 (1.001-1.035); Squamous Epithelial Cell,Urine 3 /hpf (0-5); Urobilinogen,Urine Negative mg/dL (0.0-1.0); WBC,Urine 85 /hpf (0-5)
[2024-11-16 08:38] LABS: HCG,Qualitative Serum Negative
[2024-11-16 08:44] LABS: Culture Indicated,Urine Yes
[2024-11-16] MEDS: HEPARIN SOD LOCK SYR 100 UNIT/ML 500 UNIT STFIELD (10:15)
[2024-11-16] MEDS: fentaNYL CIT INJ 50 mCg/ML AMP 2ML 100 MCG IVP (10:35)
[2024-11-16] MEDS: LIDOCAINE INJ PF 1% 30 ML VIAL 11 ML INFL (10:36)
[2024-11-16] MEDS: fentaNYL CIT INJ 50 mCg/ML AMP 2ML 25 MCG IVP (10:48)
--- NOTE | 2024-11-16 11:12 | PC.NURSE ---
REPORT FROM RAMIREZ FROM IR TOLERATED WELL, TUBE IS DRAINING WELL, GIVEN LIDO AND FENT. PLACED PT IN BED 12 PT ALERT AND ORIENTED. NO COMPLAINTS AT THIS TIME
--- NOTE | 2024-11-16 11:57 | EDNOTE_ITS ---
ED General RME/HPI General Chief complaint: Urogenital-Female Stated complaint: needs Nephrostomy tube replaced Time Seen by Provider: 11/16/24 07:22 Arrival date/time: 11/16/24 07:14 RME / HPI RME / HPI narrative: 11/16/24 07:14 34-year-old female with a history of a 16 mm right ureteral stone presents to the emergency room with a chief complaint of a partially pulled out nephrostomy tube. Patient was seen here 3 days ago and instructed to return today so they can replace and insert the nephrostomy tube. I have greeted and performed a focused initial assessment of this patient. A comprehensive ED assessment and evaluation of the patient, analysis of all test results, and completion of the medical decision making process will be conducted by additional ED providers. 34y/o F here for evaluation of her nephrostomy tube. States that it had become dislodged and is here to have it replaced. Denies any acute symptoms at this time. States that she has an appointment later this month to have surgery for stent placement. Related Data Home Medications ?Medication ?Instructions ?Recorded ?Confirmed bictegravir 50 mg-emtricitabine 1 tab PO QDAY 10/29/24 10/29/24 200 mg-tenofovir alafenam 25 mg tablet (Biktarvy) Previous Rx's ?Medication ?Instructions ?Recorded acetaminophen 325 mg tablet 650 mg (2 x 325 mg) PO Q6H PRN 11/03/24 Pain Scale 1-3 (Mild #90 tabs metronidazole 250 mg tablet 500 mg (2 x 250 mg) PO BID #60 tabs 11/03/24 ketorolac 10 mg tablet 10 mg PO Q8H PRN pain #20 ta bs 11/16/24 Allergies Allergy/AdvReac Type Severity Reaction Status Date / Time Penicillins Allergy Intermediate Rash Verified 11/16/24 07:18 Review of Systems Review of Systems Systems Reviewed: All systems reviewed, normal except as documented ED Exam Narrative Physical exam: Constitutional: Awake, alert, nontoxic, no acute distress HEENT: NC, AT, EOMI CV: RRR, no m/r/g Lungs: CTAB, no w/r/r, no respiratory distress. : There is pain to palpation of the right flank. Newly placed nephrostomy tube in situ to right CVA. Neuro: AAOx3, no acute neuro deficit noted. Skin: Warm, dry, intact Course Course Course Narrative: 1200pm: Patient is back from the OR already with nephrostomy tube in place. Having some pain to the area. Otherwise no acute symptoms at this time. Will give additional dose of pain medication and plan discharge home shortly. Quality Measures none Orders Category Date Time Status IR nephrostomy Stat Exams 11/16/24 Completed CBC Stat Lab 11/16/24 07:39 Completed CMP [Comprehensive Metabolic Panel] Stat Lab 11/16/24 07:39 Completed HCG,Qualitative Serum Stat Lab 11/16/24 07:39 Completed PT [Prothrombin Time with INR] Stat Lab 11/16/24 07:39 Completed PTT [Partial Thromboplastin Time] Stat Lab 11/16/24 07:39 Completed UA, C/S IF [Urinalysis, C/S if Indicated] Stat Lab 11/16/24 07:33 Completed Urine Culture Stat Lab 11/16/24 07:33 Received Heparin Sod Lock Syr [Hep-Lock 100 UNIT/ML SYR] Med 11/16/24 10:00 Discontinued 500 unit .ROUTE .STK-MED ONE Heparin Sod Lock Syr [Hep-Lock 100 UNIT/ML SYR] Med 11/16/24 10:18 Discontinued 500 unit STFIELD X1 ONE Ketorolac Inj [Toradol Inj] Med 11/16/24 12:03 Discontinued 60 mg IM X1 ONE Lidocaine 1% Pf 30 ml [Xylocaine 1% Pf 30 ml] Med 11/16/24 10:00 Discontinued 11 ml INFL X1 ONE Lidocaine 1% Pf 30 ml [Xylocaine 1% Pf 30 ml] Med 11/16/24 10:00 Discontinued 30 ml .ROUTE .STK-MED ONE fentaNYL INJ [Sublimaze Inj] Med 11/16/24 10:18 Discontinued 100 mcg IVP X1 ONE fentaNYL INJ [Sublimaze Inj] Med 11/16/24 10:00 Discontinued 200 mcg .ROUTE .STK-MED ONE fentaNYL INJ [Sublimaze Inj] Med 11/16/24 10:40 Discontinued 25 mcg IVP X1 ONE traMADol HCL [Ultram] Med 11/16/24 12:03 Discontinued 100 mg PO X1 ONE Vital Signs Vital signs: Vital Signs Temperature 98.0 F 11/16/24 07:21 Pulse Rate 87 11/16/24 07:21 Respiratory Rate 19 11/16/24 07:21 Blood Pressure 106/71 11/16/24 07:21 Pulse Oximetry (%) 99 11/16/24 07:21 Oxygen Delivery Method Room Air 11/16/24 07:21 Critical Care Time Critical Care Time Critical Care Time: No Discharge Plan Plan Patient Disposition: HOME (Self Care) Patient condition on transfer: Stable Prescriptions/Referrals Prescriptions/Med Rec: New ketorolac 10 mg tablet 10 mg PO Q8H PRN (Reason: pain) Qty: 20 0RF Rx Instructions: maximum total duration of 5 days from all oral, intranasal, or parenteral formulations No Action Biktarvy 50-200-25 mg tablet 1 tab PO QDAY Patient Comments: TAKE 1 TABLET BY MOUTH EVERY DAY FOR 30 DAYS acetaminophen 325 mg Tablet 650 mg PO Q6H PRN (Reason: Pain Scale 1-3 (Mild) Qty: 90 0RF metronidazole 250 mg Tablet 500 mg PO BID Qty: 60 0RF Referrals: Susie Carver PA-C [Primary Care Provider] - In 1 week Problem List Clinical Impression: Malfunction of nephrostomy tube Patient/Caregiver Discharge Instructions Education Materials: Percutaneous Nephrostomy, Percutaneous Nephrostomy Dc Print Language: [place] Stand Alone Forms: Countdown Info., Work/School Release, Patient Portal Info Letter MDM Clinical Information Provided by patient Medical Records Reviewed [facility] Meds/Rx Considered, not Ordered Describe details: Prescription for Toradol sent Labs/Rad/Tests considered, not Ordered Describe details: Placement of percutaneous nephrostomy tube. cbc, cmp, ua reviewed - nil acute. Chronic Illness/Social Conditions which may negatively complicate care or outcome(s)-explain: None or not applicable Imaging Imaging interpretation: see narrative above Medication Administration(s) Medication Administration History Discontinued Medications Fentanyl Citrate (Fentanyl Cit Inj 50 Mcg/Ml Amp 2ml) Confirm Administered Dose 200 mcg .ROUTE .STK-MED ONE Stop: 11/16/24 10:01 Last Admin: 11/16/24 10:17 Dose: Not Given Documented By: Non-Admin Reason: Duplicate Medication on eMAR Fentanyl Citrate (Fentanyl Cit Inj 50 Mcg/Ml Amp 2ml) 100 mcg IVP X1 ONE Stop: 11/16/24 10:19 Last Admin: 11/16/24 10:35 Dose: 100 mcg Documented By: Fentanyl Citrate (Fentanyl Cit Inj 50 Mcg/Ml Amp 2ml) 25 mcg IVP X1 ONE Stop: 11/16/24 10:41 Last Admin: 11/16/24 10:48 Dose: 25 mcg Documented By: Heparin Sodium (Beef Lung) (Heparin Sod Lock Syr 100 Unit/Ml) Confirm Administered Dose 500 unit .ROUTE .STK-MED ONE Stop: 11/16/24 10:01 Last Admin: 11/16/24 10:17 Dose: Not Given Documented By: Non-Admin Reason: Duplicate Medication on eMAR Heparin Sodium (Beef Lung) (Heparin Sod Lock Syr 100 Unit/Ml) 500 unit STFIELD X1 ONE Stop: 11/16/24 10:19 Last Admin: 11/16/24 10:15 Dose: 500 unit Documented By: Ketorolac Tromethamine (Ketorolac Inj 60 Mg/2 Ml Vial) 60 mg IM X1 ONE Stop: 11/16/24 12:04 Lidocaine HCl (Lidocaine Inj Pf 1% 30 Ml Vial) Confirm Administered Dose 30 ml .ROUTE .STK-MED ONE Stop: 11/16/24 10:01 Last Admin: 11/16/24 10:17 Dose: Not Given Documented By: Non-Admin Reason: Duplicate Medication on eMAR Lidocaine HCl (Lidocaine Inj Pf 1% 30 Ml Vial) 11 ml INFL X1 ONE Stop: 11/16/24 10:01 Last Admin: 11/16/24 10:36 Dose: 11 ml Documented By: Tramadol HCl (Tramadol Hcl 50 Mg Tablet) 100 mg PO X1 ONE Stop: 11/16/24 12:04 Diagnosis Differential diagnosis: Nephrostomy tube malfunction Most likely dx, and/or detailed dx discussion: Status post nephrostomy tube placement Dispositon Disposition: Discharge Home
[2024-11-16] MEDS: KETOROLAC INJ 60 MG/2 ML VIAL IM (12:15)
== END 2024-11-16 12:32 | disposition home or self-care (01) ==
PROVIDERS: Nurse Practitioner Family; Emergency Provider Family Medicine; PCP Physician Assistant
DX: T83.012A Breakdown (mechanical) of nephrostomy catheter, initial encounter (principal); Y73.2 Prosthetic and other implants, materials and accessory gastroenterology and urology devices associated with adverse incidents; Y84.6 Urinary catheterization as the cause of abnormal reaction of the patient, or of later complication, without mention of misadventure at the time of the procedure
CPT/HCPCS: 50432; 36415; 74425; 80053; 81001; 84703; 85025; 85610; 85730; 87086; 96374; 96376; 99284; C1729; C1769; J1642; J1885; J3010; J3490; J7050; Q9958; A9270

== ENCOUNTER 2024-11-19 11:05 | Emergency (ER) | payer MEDICAID, SELFPAY ==
--- NOTE | 2024-11-19 | XR_ITS ---
Examination: IR change dressing nephrostomy tube INDICATIONS: Leaking nephrostomy tube Date and time: November 19, 2024 12:00 PM TECHNIQUE AND FINDINGS: Dressing replaced with a new bag in addition IMPRESSION: Dressing replaced
[2024-11-19 11:08] VITALS: BP 111/76; PULSE 95; RESP 17; TEMP 36.4; O2SAT 97; BMI 28.1
[2024-11-19 11:09] VITALS: PULSE 90; RESP 18; O2SAT 98
--- NOTE | 2024-11-19 11:23 | XR_ITS ---
Examination: CT abdomen and pelvis without contrast. Coronal 3-D reconstructions. Sagittal 2-D reconstructions. Date and time of exam:November 19, 2024 1157 hours INDICATIONS: History right hydronephrosis 16mm proximal right ureteral calculus CTDI: vol (mGy): 7.21 DLP: (mGycm): 112 Technique: Axial images of the abdomen have been obtained, 3 mm slice thickness Intravenous contrast material has not been administered. Low dose protocols were performed. One or more of the following dose reduction techniques were used; automated exposure control, adjustment of the mA and/or KV according to patient size, use of iterative reconstruction technique. Findings: No focal liver or splenic lesions Edematous right kidney Right percutaneous nephrostomy tube satisfactory position, mild hydronephrosis Again noted 16mm proximal right ureteral calculus Normal appendix No bowel obstruction No pelvic mass No bladder mass or bladder calculi IMPRESSION: Right percutaneous nephrostomy tube satisfactory position Suspicious for right pyelonephritis
--- NOTE | 2024-11-19 11:23 | PD.EDRME ---
Rapid Medical Screening Exam RME Arrival date/time: 11/19/24 11:05 34-year-old female presents to the Emergency Department today for complaint of right-sided back pain patient is nephrostomy in place she reports the line is leaking Chief Complaint: General Adult/Misc Complain Time Seen by Provider: 11/19/24 11:22 Vital signs: Vital Signs Temperature 97.5 F 11/19/24 11:08 Pulse Rate 95 11/19/24 11:08 Respiratory Rate 17 11/19/24 11:08 Blood Pressure 111/76 11/19/24 11:08 Pulse Oximetry (%) 97 11/19/24 11:08 Oxygen Delivery Method Room Air 11/19/24 11:08
[2024-11-19] MEDS: KETOROLAC INJ 30 MG/ML VIAL IM (11:27)
[2024-11-19 11:58] LABS: Collection Type, Urine Clean Catch
[2024-11-19 12:03] LABS: Basophils # (Auto) 0.0 Thou/mm3 (0.0-0.2); Basophils % (Auto) 0 % (0-2.5); Eosinophils # (Auto) 0.1 Thou/mm3 (0.0-0.5); Eosinophils % (Auto) 1 % (0-10); Hematocrit 36.6 % (36.0-46.0); Hemoglobin 12.7 g/dL (12.0-16.0); Immature Granulocytes Auto 0.01 Thou/mm3 (0.00-0.00); Lymphocytes # (Auto) 1.5 Thou/mm3 (1.0-4.8); Lymphocytes % (Auto) 30 % (10-50); Mean Corpuscular HGB Conc 34.7 g/dl (31.0-37.0); Mean Corpuscular Hemoglobin 32.8 pg (25.0-35.0); Mean Corpuscular Volume 95 fL (80-100); Monocytes # (Auto) 0.7 Thou/mm3 (0.0-0.8); Monocytes % (Auto) 14 % (0-12); Neutrophils # (Auto) 2.8 Thou/mm3 (1.8-7.7); Neutrophils % (Auto) 55 % (37-80); Nucleated Red Blood Cell # 0.00 Thou/mm3 (0.00-0.00); Nucleated Red Blood Cell % 0 /100 WBC (0); Platelet Count 228 Thou/mm3 (140-440); RDW Standard Deviation 41.1 fL (36.4-46.3); Red Blood Count 3.87 Miln/mm3 (4.00-5.20); White Blood Count 5.1 Thou/mm3 (3.6-11.0)
[2024-11-19 12:12] LABS: Bacteria,Urine 4+; Bilirubin,Urine Negative (Negative); Blood,Urine 3+ (Negative); Clarity,Urine Turbid (Clear/Hazy); Color,Urine Yellow (Lt Yel-Yel); Culture Indicated,Urine Contaminated; Glucose, Urine Negative (Negative); Ketones,Urine Negative (Negative); Leukocyte Esterase,Urine Positive (Negative); Nitrite,Urine Positive (Negative); PH,Urine 6.0 (5.0-7.0); Protein,Urine 1+ (Neg - Trace); RBC,Urine 204 /hpf (0-3); Specific Gravity,Urine 1.022 (1.001-1.035); Squamous Epithelial Cell,Urine 19 /hpf (0-5); Urobilinogen,Urine Negative mg/dL (0.0-1.0); WBC,Urine 271 /hpf (0-5)
[2024-11-19 12:15] LABS: Amphetamine/Methamp Scrn,U Negative (Negative); Barbiturate Screen,Urine Negative (Negative); Benzodiazepines Screen,Urine Negative (Negative); Benzoylecgonine Screen, Ur Negative (Negative); Fentanyl Screen,Urine Negative (Negative); Opiate Screen,Urine Negative (Negative); THC Screen,Urine Negative (Negative)
[2024-11-19 12:22] LABS: Alanine Aminotransferase 17 U/L (10-49); Albumin, Serum 4.1 gm/dL (3.5-5.0); Albumin/Globulin Ratio 1.5 (1.2-2.2); Alkaline Phosphatase 44 U/L (46-116); Anion Gap 7 (7-16); Aspartate Amino Transferase 27 U/L (0-34); BUN/Creatinine Ratio 13 Ratio (12-20); Bilirubin,Total 0.3 mg/dL (0.3-1.2); Blood Urea Nitrogen 12 mg/dL (9-23); Calcium 9.3 mg/dL (8.3-10.6); Calcium (Corrected) 9.3 mg/dL (8.5-10.1); Carbon Dioxide 25.7 mMol/L (20.0-31.0); Chloride 106 mMol/L (98-107); Creatinine (Component) 0.9 mg/dL (0.6-1.3); Estimated Creatinine Clearance 72.9 mL/min (>60); Globulin 2.7 gm/dL (2.3-3.5); Glucose 97 mg/dL (74-106); Lipase 31 U/L (12-53); Osmolality,Calculated 277 (275-295); Potassium 4.4 mMol/L (3.4-5.1); Sodium 139 mMol/L (136-145); Total Protein 6.8 gm/dL (5.7-8.2); eGFR > 60 See Note
--- NOTE | 2024-11-19 14:07 | PC.NURSE ---
1348 right nephorostomy tube bag changed in IR, no more leaking noted, report given to Iris RN, patient transferred back to ER room 14 via wheelchair.
--- NOTE | 2024-11-19 14:09 | EDNOTE_ITS ---
ED General RME/HPI General Chief complaint: General Adult/Misc Complain Stated complaint: NEPHROSTOMY BAG LEAK Time Seen by Provider: 11/19/24 11:22 Arrival date/time: 11/19/24 11:05 RME / HPI RME / HPI narrative: 34-year-old female presents to the Emergency Department today for complaint of right-sided back pain patient is nephrostomy in place she reports the line is leaking. Severity of symptoms mild. Patient denies any vomiting denies any fever denies any other complaints. Related Data Home Medications ?Medication ?Instructions ?Recorded ?Confirmed bictegravir 50 mg-emtricitabine 1 tab PO QDAY 10/29/24 10/29/24 200 mg-tenofovir alafenam 25 mg tablet (Biktarvy) Previous Rx's ?Medication ?Instructions ?Recorded acetaminophen 325 mg tablet 650 mg (2 x 325 mg) PO Q6H PRN 11/03/24 Pain Scale 1-3 (Mild #90 tabs metronidazole 250 mg tablet 500 mg (2 x 250 mg) PO BID #60 tabs 11/03/24 ketorolac 10 mg tablet 10 mg PO Q8H PRN pain #20 ta bs 11/16/24 Allergies Allergy/AdvReac Type Severity Reaction Status Date / Time Penicillins Allergy Intermediate Rash Verified 11/19/24 14:03 Review of Systems Review of Systems Narrative Review of Systems: Review of system reviewed and within normal limits except mentioned in HPI ED Exam Narrative Physical exam: VITAL SIGNS: Reviewed. GENERAL APPEARANCE: Alert and interactive, follows commands, no acute distress, HEAD AND FACE: Non-traumatic. ENT: PERRL, pink conjunctivitis, eyelid no trauma, Mucous membrane moist. NECK: Supple, nontender, no nuchal rigidity. CHEST: No tenderness, no crepitus, no paradoxical movement, no retractions. LUNGS: Clear, well ventilated, symmetric, no rales, no wheezing, no ronchi, no stridor, good breath sounds bilaterally. HEART: Regular rate, regular rhythm, no murmur, no gallops. ABDOMEN: Soft, positive bowel sounds, nondistended, no guarding, nontender, no rebound, no masses, nephrostomy tube intact on insertion no leaking on insertion site, leaking noted on the tubing RECTAL: Deferred. GENITAL: Deferred. NEUROLOGICAL: Gross motor function intact sensory function intact, Appropriate for age. MUSCULOSKELETAL: low back nontender, full range of motion. EXTREMITIES: Nontender, full range of motion. SKIN: Color pink, dry, no rash, no lacerations, no abrasions, no contusions. LYMPHATICS: Deferred. Course Quality Measures none Orders Category Date Time Status CT abdomen pelvis wo con Stat Exams 11/19/24 11:23 Completed IR nephrostogram RT Stat Exams 11/19/24 Ordered CBC Stat Lab 11/19/24 11:48 Completed Comprehensive Metabolic Panel Stat Lab 11/19/24 11:48 Completed Drug Screen,Urine Stat Lab 11/19/24 11:45 Completed Lipase Stat Lab 11/19/24 11:48 Completed UA, C/S IF [Urinalysis, C/S if Indicated] Stat Lab 11/19/24 11:45 Completed Ketorolac Inj [Toradol Inj] Med 11/19/24 11:23 Discontinued 30 mg IM X1 ONE Vital Signs Vital signs: Vital Signs Temperature 97.5 F 11/19/24 11:08 Pulse Rate 95 11/19/24 11:08 Respiratory Rate 17 11/19/24 11:08 Blood Pressure 111/76 11/19/24 11:08 Pulse Oximetry (%) 97 11/19/24 11:08 Oxygen Delivery Method Room Air 11/19/24 11:08 Discharge Plan Plan Patient Disposition: HOME (Self Care) Discharge Disposition comment: Stable Prescriptions/Referrals Prescriptions/Med Rec: No Action Biktarvy 50-200-25 mg tablet 1 tab PO QDAY Patient Comments: TAKE 1 TABLET BY MOUTH EVERY DAY FOR 30 DAYS acetaminophen 325 mg Tablet 650 mg PO Q6H PRN (Reason: Pain Scale 1-3 (Mild) Qty: 90 0RF metronidazole 250 mg Tablet 500 mg PO BID Qty: 60 0RF ketorolac 10 mg tablet 10 mg PO Q8H PRN (Reason: pain) Qty: 20 0RF Rx Instructions: maximum total duration of 5 days from all oral, intranasal, or parenteral formulations Referrals: No Primary/Family,Physician [Primary Care Provider] - In 1 week Problem List Clinical Impression: Malfunction of nephrostomy tube Patient/Caregiver Discharge Instructions Discharge Activity: activity as tolerated Education Materials: Percutaneous Nephrostomy Dc Additional Instructions: Thank you for the opportunity for serving you today. You are stable for discharged . You are advised to: Follow-up with your PCP in 1 to 2 days Return to ED for worsening of symptoms Increase oral fluids Continue taking your antibiotic Print Language: [place]ic Stand Alone Forms: Carla Award Info., Patient Portal Info Letter WILNER/NAVEEN Supervising Physician SERJIO Supervising Physician: MD ASHWINI Garza Narrative [facility] hospital course: 34-year-old female presents to the Emergency Department today for complaint of right-sided back pain patient is nephrostomy in place she reports the line is leaking. Severity of symptoms mild. Patient denies any vomiting denies any fever denies any other complaints. Patient's CBC showed no leukocytosis, urinalysis is contaminated creatinine normal. CT scan of the abdomen pelvis showed Right percutaneous nephrostomy tube satisfactory position Suspicious for right pyelonephritis Patient is currently taking antibiotic. IR fix her urostomy bag is not leaking anymore. Patient is stable for charge home. Medication Administration(s) Medication Administration History Discontinued Medications Ketorolac Tromethamine (Ketorolac Inj 30 Mg/Ml Vial) 30 mg IM X1 ONE Stop: 11/19/24 11:24 Last Admin: 11/19/24 11:27 Dose: 30 mg Documented By:
[2024-11-19 15:34] VITALS: BP 122/77; PULSE 78
== END 2024-11-19 15:35 | disposition home or self-care (01) ==
PROVIDERS: Nurse Practitioner Primary Care; Emergency Provider Family Medicine
DX: Z43.6 Encounter for attention to other artificial openings of urinary tract (principal)
CPT/HCPCS: 50435; 36415; 74176; 80053; 80307; 81001; 83690; 85025; 96372; 99283; J1885

== ENCOUNTER 2024-11-21 21:01 | Emergency (ER) | payer MEDICAID, SELFPAY ==
[2024-11-21 21:03] VITALS: PULSE 88; RESP 18; O2SAT 99; BMI 28.5
[2024-11-21 21:12] VITALS: BP 99/68; PULSE 84; RESP 18; TEMP 36.7; O2SAT 99
--- NOTE | 2024-11-21 21:28 | EDNOTE_ITS ---
ED General RME/HPI General Chief complaint: General Adult/Misc Complain Stated complaint: R SIDE PEFROSTOMY TUBE FELL OUT Time Seen by Provider: 11/21/24 21:07 Arrival date/time: 11/21/24 21:01 Jyotsna Rocha is a 34-year-old female with a history of nephrolithiasis, HIV, alcohol use disorder, and past drug use who came in the emergency room due to malfunction of the nephrostomy tube today patient have multifocal visit here in the emergency room due to a malfunction and pulled out nephrostomy tube history of present illness started 11/02/2024 when the patient have infected ureteral stone approximately 16 mm patient was seen by Dr. Mark Muro where nephrostomy tube was inserted by IR patient since then coming back here in the emergency room due to pulled out nephrostomy tube patient was last seen here 11/19/2024 where they reinserted the nephrostomy patient states that today she accidentally pulled his nephrostomy tube patient denies any fever chills abdominal pain back pain flank pain nausea vomiting unable to urinate or blood in urine Limitations: no limitations Related Data Home Medications ?Medication ?Instructions ?Recorded ?Confirmed bictegravir 50 mg-emtricitabine 1 tab PO QDAY 10/29/24 10/29/24 200 mg-tenofovir alafenam 25 mg tablet (Biktarvy) Previous Rx's ?Medication ?Instructions ?Recorded acetaminophen 325 mg tablet 650 mg (2 x 325 mg) PO Q6H PRN 11/03/24 Pain Scale 1-3 (Mild #90 tabs metronidazole 250 mg tablet 500 mg (2 x 250 mg) PO BID #60 tabs 11/03/24 ketorolac 10 mg tablet 10 mg PO Q8H PRN pain #20 ta bs 11/16/24 Allergies Allergy/AdvReac Type Severity Reaction Status Date / Time Penicillins Allergy Intermediate Rash Verified 11/21/24 21:06 Review of Systems Review of Systems Systems Reviewed: All systems reviewed, normal except as documented Constitutional Constitutional: Reports system reviewed and no additional complaints, except as documented and Reports as per HPI Cardiovascular Cardiovascular: Reports system reviewed and no additional complaints, except as documented and Reports as per HPI Respiratory Respiratory: Reports system reviewed and no additional complaints, except as documented and Reports as per HPI Gastrointestinal Gastrointestinal: Reports system reviewed and no additional complaints, except as documented, Reports as per HPI, Denies abdominal pain, Denies nausea and Denies vomiting Genitourinary Genitourinary: Reports system reviewed and no additional complaints, except as documented, Reports as per HPI, Denies abnormal vaginal bleeding, Denies difficulty voiding, Denies dysmenorrhea, Denies dysuria, Denies flank pain, Denies hematuria, Denies nocturia, Denies pelvic pain, Denies post void dribbling, Denies urinary frequency, Denies urinary incontinence, Denies urinary hesitancy, Denies urinary urgency and Denies vaginal discharge Musculoskeletal Musculoskeletal: Reports system reviewed and no additional complaints, except as documented and Reports as per HPI Neurologic Neurologic: Reports system reviewed and no additional complaints, except as documented and Reports as per HPI Past Medical History Past Medical History CARDIAC: Negative Cardiac Disorders or Congestive Heart Failure RESPIRATORY: Negative Chronic Obstructive Pulmonary Disease (COPD) or Asthma GENITOURINARY: Positive Genitourinary Disorders and Kidney Stones (RIGHT NEPHROSTOMY TUBE); Negative Renal Disease ENDOCRINE: Negative Diabetes Mellitus Type 1 or Diabetes Mellitus Type 2 HEMATOLOGIC: Negative Sickle Cell Disease OTHER HISTORY: Positive Human Immunodeficiency Virus (HIV) Surgical History SURGICAL: Positive Tubal Ligation and Section Social History SMOKING STATUS: Never smoker SUBSTANCE USE: does not use ED Exam General Limitations: Present no limitations General appearance: Present alert, in no apparent distress and other (Awake alert oriented not in distress not toxic looking well-hydrated well-nourished) Head Head exam: Present atraumatic, normocephalic and normal inspection Eye Eye exam: Present normal appearance, PERRL and EOMI ENT ENT exam: Present normal exam, normal oropharynx and mucous membranes moist Neck Neck exam: Present normal inspection, full ROM and trachea midline Chest Chest inspection: Present normal inspection and symmetric chest wall rise Respiratory Respiratory exam: Present normal lung sounds bilaterally; Absent respiratory distress, wheezes, stridor, accessory muscle use or prolonged expiratory phase Cardiovascular Cardiovascular exam: Present regular rate, normal rhythm and normal heart sounds; Absent bradycardia, tachycardia, irregular rhythm or systolic murmur Abdominal Exam Abdominal exam: Present soft, normal bowel sounds and other (Nominal is benign nonsurgical no guarding no rebound no rigidity no tenderness no CVA tenderness no bladder tenderness no distention negative psoas negative straight or negative Rovsing's negative McBurney's negative Benites sign negative CVA tenderness); Absent distention, tenderness, guarding, rebound, rigidity, diminished bowel sounds, hyperactive bowel sounds, hypoactive bowel sounds or organomegaly Extremities Exam Extremities exam: Present normal inspection and full ROM Back Exam Back exam: Present normal inspection and full ROM Neurological Exam Neurological exam: Present alert, oriented X3, CN II-XII intact, normal gait and reflexes normal; Absent motor sensory deficit Psychiatric Psychiatric exam: Present normal affect and normal mood Skin Skin exam: Present warm, dry, intact and normal color Course Quality Measures none Vital Signs Vital signs: Vital Signs Temperature 98.1 F 11/21/24 21:12 Pulse Rate 84 11/21/24 21:12 Respiratory Rate 18 11/21/24 21:12 Blood Pressure 99/68 11/21/24 21:12 Pulse Oximetry (%) 99 11/21/24 21:12 Oxygen Delivery Method Room Air 11/21/24 21:12 Patient is afebrile not tachycardic not tachypneic BP stable not hypoxic oxygen saturation is 99% in room air Discharge Plan Plan Patient Disposition: HOME (Self Care) Patient condition on transfer: Stable Prescriptions/Referrals Prescriptions/Med Rec: No Action Biktarvy 50-200-25 mg tablet 1 tab PO QDAY Patient Comments: TAKE 1 TABLET BY MOUTH EVERY DAY FOR 30 DAYS acetaminophen 325 mg Tablet 650 mg PO Q6H PRN (Reason: Pain Scale 1-3 (Mild) Qty: 90 0RF metronidazole 250 mg Tablet 500 mg PO BID Qty: 60 0RF ketorolac 10 mg tablet 10 mg PO Q8H PRN (Reason: pain) Qty: 20 0RF Rx Instructions: maximum total duration of 5 days from all oral, intranasal, or parenteral formulations Problem List Clinical Impression: Malfunction of nephrostomy tube Patient/Caregiver Discharge Instructions Education Materials: ED Dave Catheter, Care Additional Instructions: Follow-up with your primary care physician in 2 days for reevaluation it is very important to return in medical assisting program director of Saturday to be seen by the urologist and to perform nephrostomy tube insertion via IR worsening symptoms or any emergent concerns such as fever chills abdominal pain flank pain blood in the urine unable to urinate or severe pain return to the emergency room immediately or call 911 urine it is also advisable if you can go to other hospitals such as [place] to see a urologist for further evaluation and treatment Print Language: Wallisian Stand Alone Forms: Carla Award Info., Patient Portal Info Letter PA/NAVEEN Supervising Physician SERJIO Supervising Physician: dr pearson [facility] Narrative [facility] hospital course: Jyotsna Rocha is a 34-year-old female with a history of nephrolithiasis, HIV, alcohol use disorder, and past drug use who came in the emergency room due to malfunction of the nephrostomy tube today patient have multifocal visit here in the emergency room due to a malfunction and pulled out nephrostomy tube history of present illness started 11/02/2024 when the patient have infected ureteral stone approximately 16 mm patient was seen by Dr. Mark Muro where nephrostomy tube was inserted by IR patient since then coming back here in the emergency room due to pulled out nephrostomy tube patient was last seen here 11/19/2024 where they reinserted the nephrostomy patient states that today she accidentally pulled his nephrostomy tube patient denies any fever chills abdominal pain back pain flank pain nausea vomiting unable to urinate or blood in urine physical examination patient is awake alert oriented not in distress nontoxic looking vital signs stable BP stable not tachycardic not tachypneic afebrile not hypoxic patient abdominal exam is benign nonsurgical no guarding no rebound no rigidity no CVA tenderness bladder is not distended not tender no signs or symptoms of sepsis no signs and symptoms of acute abdomen I discussed the case to Dr. Pearson since today patient has no symptoms patient vital signs stable no pain at the time of exam today is Saturday no IR I was instructed by Dr. Pearson to discuss with the patient that since she has no pain she needs to return on Saturday medical assisting program director for IR and to reinsert the urostomy tube a short ER precaution was also advised if there is a symptoms such as abdominal pain flank pain unable to urinate or blood in the urine or fever or chills she needs to return in the emergency room immediately or call 911 she was also advised if she cannot wait for the IR on Saturday she can go to a any [facility] hospital such as [place] to see a urologist for further evaluation and treatment patient understood very well the discharge instruction Patient was discharged with comfortable condition walking with stable gait. Patient verbalized no further complains explained diagnosis and answered patient question. Patient is comfortable with the proposed management plan including the need to follow up with his/her primary care physician and any specialist if applicable Discussed patient for any urgent condition or worsening sx, He/She needed to go to emergency room immediately or call 911. Patient acknowledge the responsibility to follow up as instructed and to monitor her/his symptoms. For any persistence of the symptoms for more than 3-5 days return precaution advised. Discussed the result of the test and was given printed discharge instruction Clinical Information Provided by patient Medical Records Reviewed [facility] Meds/Rx Considered, not Ordered None Labs/Rad/Tests considered, not Ordered None Chronic Illness/Social Conditions which may negatively complicate care or outcome(s)-explain: None or not applicable Lab Interpretation Labs: none Imaging Imaging interpretation: none Medication Administration(s) none Consultations/Discussions re: Management Consult #1: Date/time: 11/22/24 1:42 am Physician, specialty, service, details: Dr. Pearson ED physician discharge patient since the patient is asymptomatic return on Saturday medical assisting program director for IR nephrostomy tube insertion if symptoms get worse or any symptoms return to the emergency room immediately or call 9 1 she can also go to [facility] to see urologist Diagnosis Differential diagnosis: Nephrostomy tube malfunction Differential dx and/or dx ruled out: Nephrostomy tube malfunction Most likely dx, and/or detailed dx discussion: Nephrostomy tube malfunction Dispositon Disposition: Discharge Home
== END 2024-11-21 21:34 | disposition home or self-care (01) ==
PROVIDERS: Emergency Provider Emergency Medicine
DX: N99.522 Malfunction of incontinent external stoma of urinary tract (principal); Y84.8 Other medical procedures as the cause of abnormal reaction of the patient, or of later complication, without mention of misadventure at the time of the procedure
CPT/HCPCS: 99282

== ENCOUNTER 2024-11-23 08:17 | Emergency (ER) | payer MEDICAID, SELFPAY ==
[2024-11-23 08:24] VITALS: BMI 28.3
[2024-11-23 08:29] VITALS: BP 106/71; PULSE 74; RESP 18; TEMP 36.9; O2SAT 99
--- NOTE | 2024-11-23 08:43 | PD.EDRME ---
Rapid Medical Screening Exam RME Arrival date/time: 11/23/24 08:17 34-year-old female with a history of a 16 mm ureteral stone in which a nephrostomy tube was placed presents to the emergency room for accidental dislodgment of the nephrostomy tube. Patient states she was using the restroom and accidentally completely removed the nephrostomy tube. Patient states she is still in the process of seeing an outpatient urologist. I have greeted and performed a focused initial assessment of this patient. A comprehensive ED assessment and evaluation of the patient, analysis of all test results, and completion of the medical decision making process will be conducted by additional ED providers. Chief Complaint: General Adult/Misc Complain Time Seen by Provider: 11/23/24 08:25 Vital signs: Vital Signs Temperature 98.5 F 11/23/24 08:29 Pulse Rate 74 11/23/24 08:29 Respiratory Rate 18 11/23/24 08:29 Blood Pressure 106/71 11/23/24 08:29 Pulse Oximetry (%) 99 11/23/24 08:29 Oxygen Delivery Method Room Air 11/23/24 08:29 Vital signs reviewed by provider: Yes
[2024-11-23 09:20] LABS: Collection Type, Urine Clean Catch
--- NOTE | 2024-11-23 09:21 | XR_ITS ---
Examination: Retroperitoneal ultrasound, complete Technique: Multiple high resolution grayscale images of the retroperitoneum obtained, including kidneys and bladder. Exam date and time:November 23, 2024 1014 hours INDICATIONS: Right nephrostomy tube dislodged last night FINDINGS: Right kidney 10.5 cm cortex 2.1 cm Moderate right hydronephrosis Left kidney 11.3 cm cortex 2.2 cm No hydronephrosis Moderate renal parenchymal scar formation Contracted urinary bladder IMPRESSION: Moderate right hydronephrosis
--- NOTE | 2024-11-23 09:29 | PC.NURSE ---
ER Notified of Dr. Brower wanting a Renal US before proceeding with procedure.
[2024-11-23 09:55] LABS: Bacteria,Urine Rare; Bilirubin,Urine Negative (Negative); Blood,Urine 1+ (Negative); Color,Urine Yellow (Lt Yel-Yel); Culture Indicated,Urine Contaminated; Glucose, Urine Negative (Negative); Ketones,Urine Negative (Negative); Leukocyte Esterase,Urine Positive (Negative); Nitrite,Urine Negative (Negative); PH,Urine 6.5 (5.0-7.0); Protein,Urine Trace (Neg - Trace); RBC,Urine 27 /hpf (0-3); Specific Gravity,Urine 1.015 (1.001-1.035); Squamous Epithelial Cell,Urine 22 /hpf (0-5); Urobilinogen,Urine Negative mg/dL (0.0-1.0); WBC,Urine 652 /hpf (0-5)
[2024-11-23 10:01] LABS: Clarity,Urine Turbid (Clear/Hazy)
[2024-11-23 10:06] LABS: Basophils # (Auto) 0.0 Thou/mm3 (0.0-0.2); Basophils % (Auto) 0 % (0-2.5); Eosinophils # (Auto) 0.1 Thou/mm3 (0.0-0.5); Eosinophils % (Auto) 2 % (0-10); Hematocrit 40.4 % (36.0-46.0); Hemoglobin 14.0 g/dL (12.0-16.0); Immature Granulocytes Auto 0.01 Thou/mm3 (0.00-0.00); Lymphocytes # (Auto) 1.4 Thou/mm3 (1.0-4.8); Lymphocytes % (Auto) 29 % (10-50); Mean Corpuscular HGB Conc 34.7 g/dl (31.0-37.0); Mean Corpuscular Hemoglobin 32.6 pg (25.0-35.0); Mean Corpuscular Volume 94 fL (80-100); Monocytes # (Auto) 0.4 Thou/mm3 (0.0-0.8); Monocytes % (Auto) 8 % (0-12); Neutrophils # (Auto) 2.8 Thou/mm3 (1.8-7.7); Neutrophils % (Auto) 60 % (37-80); Nucleated Red Blood Cell # 0.00 Thou/mm3 (0.00-0.00); Nucleated Red Blood Cell % 0 /100 WBC (0); Platelet Count 284 Thou/mm3 (140-440); RDW Standard Deviation 39.4 fL (36.4-46.3); Red Blood Count 4.29 Miln/mm3 (4.00-5.20); White Blood Count 4.6 Thou/mm3 (3.6-11.0)
[2024-11-23 10:23] LABS: INR 1.0 (0.9-1.3); Partial Thromboplastin Time 25.8 Seconds (22.0-36.0); Prothrombin Time 11.4 Seconds (9.0-12.2)
[2024-11-23 10:29] LABS: Alanine Aminotransferase 21 U/L (10-49); Albumin, Serum 4.4 gm/dL (3.5-5.0); Albumin/Globulin Ratio 1.5 (1.2-2.2); Alkaline Phosphatase 48 U/L (46-116); Anion Gap 7 (7-16); Aspartate Amino Transferase 35 U/L (0-34); BUN/Creatinine Ratio 10 Ratio (12-20); Bilirubin,Total 0.4 mg/dL (0.3-1.2); Blood Urea Nitrogen 10 mg/dL (9-23); Calcium 9.9 mg/dL (8.3-10.6); Calcium (Corrected) 9.9 mg/dL (8.5-10.1); Carbon Dioxide 26.3 mMol/L (20.0-31.0); Chloride 105 mMol/L (98-107); Creatinine (Component) 1.0 mg/dL (0.6-1.3); Estimated Creatinine Clearance 65.8 mL/min (>60); Globulin 3.0 gm/dL (2.3-3.5); Glucose 83 mg/dL (74-106); Osmolality,Calculated 273 (275-295); Potassium 4.6 mMol/L (3.4-5.1); Sodium 138 mMol/L (136-145); Total Protein 7.4 gm/dL (5.7-8.2); eGFR > 60 See Note
[2024-11-23 10:45] LABS: HCG,Qualitative Serum Negative
--- NOTE | 2024-11-23 12:02 | PD.EDBACK ---
ED Back Injury Pain RME/HPI General Chief Complaint: General Adult/Misc Complain Stated Complaint: NEPHROSTOMY TUBE CAME OUT Time Seen by Provider: 11/23/24 08:25 Arrival date/time: 11/23/24 08:17 Limitations: no limitations RME / HPI RME / HPI Narrative: 11/23/24 08:17 34-year-old female with a history of a 16 mm ureteral stone in which a nephrostomy tube was placed presents to the emergency room for accidental dislodgment of the nephrostomy tube. Patient states she was using the restroom and accidentally completely removed the nephrostomy tube today.. Patient states she is still in the process of seeing an outpatient urologist. She denies any current pain. Has no abdominal pain, nausea, vomiting. Has no urinary changes. No fevers or chills. No drainage from the site. She has no other acute complaints.. Related Data Home Medications ?Medication ?Instructions ?Recorded ?Confirmed bictegravir 50 mg-emtricitabine 1 tab PO QDAY 10/29/24 10/29/24 200 mg-tenofovir alafenam 25 mg tablet (Biktarvy) Previous Rx's ?Medication ?Instructions ?Recorded acetaminophen 325 mg tablet 650 mg (2 x 325 mg) PO Q6H PRN 11/03/24 Pain Scale 1-3 (Mild #90 tabs metronidazole 250 mg tablet 500 mg (2 x 250 mg) PO BID #60 tabs 11/03/24 ketorolac 10 mg tablet 10 mg PO Q8H PRN pain #20 tabs 11/16/24 Allergies Allergy/AdvReac Type Severity Reaction Status Date / Time Penicillins Allergy Intermediate Rash Verified 11/23/24 08:26 Review of Systems Review of Systems Systems Reviewed: All systems reviewed, normal except as documented ED Exam General Limitations: Present no limitations General appearance: Present alert and in no apparent distress Head Head exam: Present atraumatic Eye Eye exam: Present normal appearance, PERRL and EOMI ENT ENT exam: Present normal exam, normal oropharynx and mucous membranes moist Neck Neck exam: Present normal inspection, full ROM and trachea midline Chest Chest inspection: Present normal inspection and symmetric chest wall rise Respiratory Respiratory exam: Present normal lung sounds bilaterally Cardiovascular Cardiovascular exam: Present regular rate, normal rhythm and normal heart sounds Abdominal Exam Abdominal exam: Present soft and normal bowel sounds Extremities Exam Extremities exam: Present normal inspection and full ROM Back Exam Back exam: Present normal inspection and full ROM Neurological Exam Neurological exam: Present alert and oriented X3 Psychiatric Psychiatric exam: Present normal affect and normal mood Skin Skin exam: Present warm, dry, intact, normal color and other (2, 4 mm, open wounds, at the right flank with no active drainage, surrounding erythema, or induration.) Course Quality Measures none Orders Category Date Time Status IR nephrostomy Stat Exams 11/23/24 Ordered US renal BI Stat Exams 11/23/24 09:21 Completed CBC Stat Lab 11/23/24 09:48 Completed CMP [Comprehensive Metabolic Panel] Stat Lab 11/23/24 09:48 Completed HCG,Qualitative Serum Stat Lab 11/23/24 09:48 Completed PT [Prothrombin Time with INR] Stat Lab 11/23/24 09:48 Completed PTT [Partial Thromboplastin Time] Stat Lab 11/23/24 09:48 Completed UA, C/S IF [Urinalysis, C/S if Indicated] Stat Lab 11/23/24 09:02 Completed Vital Signs Vital signs: Vital Signs Temperature 98.5 F 11/23/24 08:29 Pulse Rate 74 11/23/24 08:29 Respiratory Rate 18 11/23/24 08:29 Blood Pressure 106/71 11/23/24 08:29 Pulse Oximetry (%) 99 11/23/24 08:29 Oxygen Delivery Method Room Air 11/23/24 08:29 Back Pain / Injury MDM Narrative MDM Narrative:: 11/23/24 08:17 34-year-old female with a history of a 16 mm ureteral stone in which a nephrostomy tube was placed presents to the emergency room for accidental dislodgment of the nephrostomy tube. Patient states she was using the restroom and accidentally completely removed the nephrostomy tube today.. Patient states she is still in the process of seeing an outpatient urologist. She denies any current pain. Has no abdominal pain, nausea, vomiting. Has no urinary changes. No fevers or chills. No drainage from the site. She has no other acute complaints.. On exam, patient is nontoxic-appearing and in no visible signs distress. Wound site does not display any erythema, induration, or fluctuance. No discharge is present. Work appears unremarkable. We did speak to our interventional radiologist, Dr. Rutherford who stated he was unable to perform the procedure until Saturday. This were discussed with patient. He will she will follow-up with her primary doctor. Consider return here Saturday. Return here at anytime for any worsening or emergent changes. Patient data External records reviewed:: None Clinical information provided by:: patient Social determinants that could affect healthcare access:: none Patient has the following chronic illnesses:: Chronic kidney stone, nephrostomy tube How is presenting disease/condition affected by chronic disease/condition?: exacerbated by Evaluation data The following diagnostics were reviewed and interpreted by me:: lab results and radiology exam(s) Lab and/or radiology exams considered but not ordered:: n/a Interpretation Summary: No leukocytosis or metabolic derangement. No abscess Medications / Prescriptions Medications or Prescriptions considered but not ordered:: n/a Medication administrations:: n/a Consultations Consultation(s) initiated? (list below): No Diagnosis Differential diagnosis back pain/injury: strain of lumbar region, renal colic and pyelonephritis Most likely diagnosis given after review of the tests above:: Dislodged nephrostomy tube Admission Indicated Admission indicated?: not indicated Admission Request Was there a request for admission?: No Disposition Plan Disposition Plan: Discharge Discharge Attestation Discharge Attestation: The patient and all family members were given an opportunity to ask questions and understood the discharge instructions. Discharge instructions specifically effects, indications for sooner follow up or return to the emergency department, and the expected course of current diagnosis. Patient condition: Stable Discharge Plan Plan Patient Disposition: HOME (Self Care) Patient condition on transfer: Stable Prescriptions/Referrals Prescriptions/Med Rec: No Action Biktarvy 50-200-25 mg tablet 1 tab PO QDAY Patient Comments: TAKE 1 TABLET BY MOUTH EVERY DAY FOR 30 DAYS acetaminophen 325 mg Tablet 650 mg PO Q6H PRN (Reason: Pain Scale 1-3 (Mild) Qty: 90 0RF metronidazole 250 mg Tablet 500 mg PO BID Qty: 60 0RF ketorolac 10 mg tablet 10 mg PO Q8H PRN (Reason: pain) Qty: 20 0RF Rx Instructions: maximum total duration of 5 days from all oral, intranasal, or parenteral formulations Referrals: Susie Carver PA-C [Primary Care Provider] - In 1 week Problem List Clinical Impression: Displacement of nephrostomy tube Patient/Caregiver Discharge Instructions Additional Instructions: -Follow up with your primary doctor as needed. -You may return here on Saturday to consider placement of a new nephrostomy tube. Print Language: Belarusian Stand Alone Forms: Carla Award Info., Patient Portal Info Letter
--- NOTE | 2024-11-23 15:08 | PC.NURSE ---
Per Dr. León would like patient to come back on Saturday to get a new nephrostomy tube insertion.
== END 2024-11-23 16:08 | disposition home or self-care (01) ==
PROVIDERS: Nurse Practitioner Family; Emergency Provider Emergency Medicine; PCP Physician Assistant
DX: T83.022A Displacement of nephrostomy catheter, initial encounter (principal); Y84.8 Other medical procedures as the cause of abnormal reaction of the patient, or of later complication, without mention of misadventure at the time of the procedure
CPT/HCPCS: 36415; 76770; 80053; 81001; 84703; 85025; 85610; 85730; 99283

== ENCOUNTER 2024-11-25 06:49 | Emergency (ER) | payer MEDICAID, SELFPAY ==
[2024-11-25] VITALS (8 sets, daily range): BP systolic 92–128; BP diastolic 66–97; PULSE 58–97; RESP 12–20; TEMP 36.4–37.5; O2SAT 96–99; BMI 28.3
--- NOTE | 2024-11-25 | XR_ITS ---
Examination: Fluoroscopically guided placement right nephrostomy drainage catheter Right nephrostogram Ultrasound-guided needle access right renal collecting system Fluoroscopy AP abdomen single view Date and time: November 25, 2024 1358 hours INDICATIONS: Proximal right ureteral calculus producing significant hydronephrosis, the patient's right nephrostomy catheter fell out this week TECHNIQUE AND FINDINGS: Informed consent provided. Timeout performed. Skin prepped over the flank and sterile drape applied maximum sterile barrier technique hand hygiene ultrasound sterile technique 1% lidocaine administered for local anesthesia Ultrasound utilized to confirm dilated right renal collecting system Utilizing ultrasonographic guidance successful 21-gauge needle puncture into the right renal collecting system 0.18 wire guide is introduced through the needle into the collecting system followed by dilators and eventually a 10 Bahamian percutaneous surf ostomy drainage catheter in proper position with injection 5 cc Cystografin Fluoroscopy 0.5 minute radiation dose 11.63 milligray Estimated blood loss 3 cc IMPRESSION: Successful right percutaneous nephrostomy catheter placement
--- NOTE | 2024-11-25 07:06 | PD.EDFMALE ---
ED Female Urogenital RME/HPI General Chief complaint: Urogenital-Female Stated complaint: RECHECK FOR NEPHOSTOMY TUBE PLACEMENT Time Seen by Provider: 11/25/24 07:02 Arrival date/time: 11/25/24 06:49 Limitations: no limitations RME / HPI RME / HPI Narrative: 34 year old female with history of 16mm right ureteral calculus s/p nephrostomy tube placement on 11/02/2024 presents to the ED for evaluation of nephrostomy tube replacement. States the nephrostomy tube became dislodged during the weekend and was evaluated here 2 days ago where she was advised to return today for replacement. Denies any acute symptoms at this time. Denies fevers, chills, abdominal pain, n/v, or change in urinary habits. Patient mentioned she does have a pending referral to see a urologist for lithotripsy. Denies current use of antibiotics. Allergies: Penicillin Related Data Home Medications ?Medication ?Instructions ?Recorded ?Confirmed bictegravir 50 mg-emtricitabine 1 tab PO QDAY 10/29/24 10/29/24 200 mg-tenofovir alafenam 25 mg tablet (Biktarvy) Previous Rx's ?Medication ?Instructions ?Recorded metronidazole 250 mg tablet 500 mg (2 x 250 mg) PO BID #60 tabs 11/03/24 ketorolac 10 mg tablet 10 mg PO Q8H PRN pain #20 tabs 11/16/24 cephalexin 500 mg capsule 500 mg PO QID #40 caps 11/25/24 acetaminophen 300 mg-codeine 30 mg 2 tab PO Q8H PRN pain #20 tabs 12/07/24 tablet cefdinir 300 mg capsule 300 mg PO BID #14 caps 12/07/24 ondansetron 4 mg disintegrating 4 mg PO TID PRN nausea and 12/07/24 tablet vomiting 30 days #10 tabs ciprofloxacin HCl 500 mg tablet 500 mg PO BID #20 tabs 12/09/24 (Cipro) acetaminophen 650 mg 650 mg PO Q12H #30 tabs 12/14/24 tablet,extended release ketorolac 10 mg tablet 10 mg PO Q8H #10 tabs 12/14/24 Allergies Allergy/AdvReac Type Severity Reaction Status Date / Time Penicillins Allergy Intermediate Rash Verified 12/14/24 09:48 Review of Systems Review of Systems Systems Reviewed: All systems reviewed, normal except as documented Past Medical History Past Medical History GENITOURINARY: Positive Genitourinary Disorders and Kidney Stones (RIGHT NEPHROSTOMY TUBE) OTHER HISTORY: Positive Human Immunodeficiency Virus (HIV) Surgical History SURGICAL: Positive Tubal Ligation and Section Social History SMOKING STATUS: Never smoker SUBSTANCE USE: does not use ED Exam General Limitations: Present no limitations General appearance: Present alert and in no apparent distress Head Head exam: Present atraumatic, normocephalic and normal inspection Eye Eye exam: Present normal appearance and EOMI ENT ENT exam: Present normal exam, normal oropharynx and mucous membranes moist Neck Neck exam: Present normal inspection and full ROM Chest Chest inspection: Present normal inspection Respiratory Respiratory exam: Present normal lung sounds bilaterally Cardiovascular Cardiovascular exam: Present regular rate, normal rhythm and normal heart sounds Abdominal Exam Abdominal exam: Present soft and normal bowel sounds; Absent distention, tenderness, guarding, rebound or rigidity Extremities Exam Extremities exam: Present normal inspection and full ROM Back Exam Back exam: Present normal inspection, full ROM and other (well healed lesions from previous nephrostomy tube on the right flank, no tenderness, no erythema ) Neurological Exam Neurological exam: Present alert, oriented X3 and CN II-XII intact Psychiatric Psychiatric exam: Present normal affect and normal mood Skin Skin exam: Present warm, dry, intact and normal color Course Quality Measures none Orders Category Date Time Status NPO NOW Care 11/25/24 07:07 Completed Diet NPO (NOW) Diet 11/25/24 07:07 Active IR nephrostomy Urgent Exams 11/25/24 Completed US renal BI Stat Exams 11/25/24 07:08 Completed CBC Stat Lab 11/25/24 07:55 Completed CMP [Comprehensive Metabolic Panel] Stat Lab 11/25/24 07:55 Completed HCG,Qualitative Serum Stat Lab 11/25/24 07:55 Completed INR [Prothrombin Time with INR] Stat Lab 11/25/24 07:55 Completed UA, C/S IF [Urinalysis, C/S if Indicated] Stat Lab 11/25/24 07:23 Completed Heparin Sod Lock Syr [Hep-Lock 100 UNIT/ML SYR] Med 11/25/24 14:09 Discontinued 500 unit .ROUTE .STK-MED ONE Lidocaine 1% Pf 30 ml [Xylocaine 1% Pf 30 ml] Med 11/25/24 14:09 Discontinued 30 ml .ROUTE .STK-MED ONE Lidocaine 1% Pf 30 ml [Xylocaine 1% Pf 30 ml] Med 11/25/24 14:25 Discontinued 5 ml INFL X1 ONE Morphine Inj Med 11/25/24 15:59 Discontinued 4 mg IVP NOW ONE NALOXONE INJ (Vial) [Narcan Inj (Vial)] Med 11/25/24 14:09 Discontinued 0.4 mg .ROUTE .STK-MED ONE Ondansetron Inj [Zofran Inj] Med 11/25/24 15:53 Discontinued 4 mg IVP X1 ONE cefTRIAXone/D5w 1gm IV premix [Rocephin/D5w 1gm IV Med 11/25/24 08:13 Discontinued premix] 1 gm in 50 ml IV X1 fentaNYL INJ [Sublimaze Inj] Med 11/25/24 14:35 Discontinued 100 mcg IVP X1 ONE fentaNYL INJ [Sublimaze Inj] Med 11/25/24 14:09 Discontinued 200 mcg .ROUTE .STK-MED ONE Vital Signs Vital signs: Vital Signs Temperature 97.6 F 11/25/24 07:01 Pulse Rate 91 11/25/24 07:01 Respiratory Rate 18 11/25/24 07:01 Blood Pressure 107/76 11/25/24 07:01 Pulse Oximetry (%) 99 11/25/24 07:01 Oxygen Delivery Method Room Air 11/25/24 07:01 Pulse ox is 99% on room air which is adequate. Urogenital - Female MDM Narrative MDM Narrative:: Patient is a 34 yo female with hx of urolithiasis obstructive on the right side that is in the ED with concerns for dislodged nephrostomy tube. Tube dislodged over the weekend, was told to return today for placement. Concern for UTI, pyelo, obst nephropathy. Ordered labs, renal u/s. Will consult IR. Labs without leukocytosis, no left shift, no significant electrolyte abnormalities, kidney function at her baseline, no transaminitis, urinalysis with evidence of infection antibiotics provided. Patient has a penicillin allergy however has tolerated cephalosporins in the past. Renal ultrasound with moderate right-sided hydronephrosis. Discussed case with on-call interventional radiologist Dr. León. Will place nephrostomy tube today. 3:59p patient had a nephrostomy tube placed successfully. Reassessment, patient nauseous and has pain will provide patient with medications for pain. Will also discharge to home with close return precautions follow-up with primary care doctor as well as a urologist as well as a course of antibiotics. Patient data External records reviewed:: [facility] previous records (I reviewed ED visit on 11/23/2024 ) Clinical information provided by:: patient Social determinants that could affect healthcare access:: none Patient has the following chronic illnesses:: 16mm right ureteral calculus s/p nephrostomy tube placement on 11/02/2024 How is presenting disease/condition affected by chronic disease/condition?: exacerbated by Evaluation data The following diagnostics were reviewed and interpreted by me:: lab results and radiology exam(s) Lab and/or radiology exams considered but not ordered:: None Interpretation Summary: Ordering Physician: Ana Gotti MD Date of Service: 11/25/24 Procedure(s): US renal BI Accession Number(s): [id number] cc: Susie Carver PA-C; Mikhail León MD; Ana Gotti MD~ Examination: Retroperitoneal ultrasound, complete Technique: Multiple high resolution grayscale images of the retroperitoneum obtained, including kidneys and bladder. Exam date and time:November 25, 2024, 0809 hours INDICATIONS: This large right nephrostomy tube November 21, 2024 FINDINGS: Right kidney 11.6 cm cortex 1.7 cm Moderate hydronephrosis Left kidney 10.6 cm cortex 1.4 cm 8 mm midpole calculus Moderate renal parenchymal scar formation Contracted urinary bladder IMPRESSION: Moderate right hydronephrosis Dictated By: Mikhail León MD Signed By: <Electronically signed by Mikhail León MD in OV> 11/25/24 0925 Medications / Prescriptions Medications or Prescriptions considered but not ordered:: None Medication administrations:: Medication Administration History Discontinued Medications Fentanyl Citrate (Fentanyl Cit Inj 50 Mcg/Ml Amp 2ml) Confirm Administered Dose 200 mcg .ROUTE .STK-MED ONE Stop: 11/25/24 14:10 Last Admin: 11/25/24 15:02 Dose: Not Given Documented By: EC Non-Admin Reason: Duplicate Medication on eMAR Fentanyl Citrate (Fentanyl Cit Inj 50 Mcg/Ml Amp 2ml) 100 mcg IVP X1 ONE Stop: 11/25/24 14:36 Last Admin: 11/25/24 14:35 Dose: 100 mcg Documented By: EC Heparin Sodium (Beef Lung) (Heparin Sod Lock Syr 100 Unit/Ml) Confirm Administered Dose 500 unit .ROUTE .STK-MED ONE Stop: 11/25/24 14:10 Last Admin: 11/25/24 15:02 Dose: Not Given Documented By: EC Non-Admin Reason: Duplicate Medication on eMAR Ceftriaxone Sodium/Dextrose (Rocephin/D5w 1gm Iv Premix) 1 gm in 50 mls @ 100 mls/hr IV X1 ONE Stop: 11/25/24 08:42 Last Infusion: 11/25/24 11:01 Dose: Infused Documented By: Admin: 11/25/24 10:13 Dose: 100 mls/hr Documented By: GE Lidocaine HCl (Lidocaine Inj Pf 1% 30 Ml Vial) Confirm Administered Dose 30 ml .ROUTE .STK-MED ONE Stop: 11/25/24 14:10 Last Admin: 11/25/24 15:02 Dose: Not Given Documented By: EC Non-Admin Reason: Duplicate Medication on eMAR Lidocaine HCl (Lidocaine Inj Pf 1% 30 Ml Vial) 5 ml INFL X1 ONE Stop: 11/25/24 14:26 Last Admin: 11/25/24 14:25 Dose: 5 ml Documented By: EC Morphine Sulfate (Morphine Sulf Inj 10 Mg/Ml Vial) 4 mg IVP NOW ONE Stop: 11/25/24 16:00 Last Admin: 11/25/24 16:13 Dose: 4 mg Documented By: JESSY Naloxone HCl (Naloxone Inj 0.4 Mg/Ml Vial) Confirm Administered Dose 0.4 mg .ROUTE .STK-MED ONE Stop: 11/25/24 14:10 Last Admin: 11/25/24 15:02 Dose: Not Given Documented By: EC Non-Admin Reason: Duplicate Medication on eMAR Ondansetron HCl (Ondansetron Inj 2 Mg/Ml Inj 2 Ml) 4 mg IVP X1 ONE; Protocol Stop: 11/25/24 15:54 Last Admin: 11/25/24 15:59 Dose: 4 mg Documented By: DACrescencio See above Consultations Consultation(s) initiated? (list below): Yes Consultation #1 (Physician, Specialty, Details): Called radiologist Dr. León, no answer. Left a voicemail. Time: 08:38 Consultation #2 (Physician, Specialty, Details): Radiologist Dr. León reports he can replace the nephrostomy. Will place the order. Time: 09:27 Diagnosis Urogenital Female Differential Diagnosis: urinary tract infection and other (Nephrostomy complications, pyelonephritis, ureteral calculi ) Most likely diagnosis given after review of the tests above:: Kidney stone Complication of nephrostomy tube Admission Indicated Admission indicated?: not indicated Admission Request Was there a request for admission?: No Disposition Plan Disposition Plan: Discharge Discharge Attestation Discharge Attestation: The patient and all family members were given an opportunity to ask questions and understood the discharge instructions. Discharge instructions specifically effects, indications for sooner follow up or return to the emergency department, and the expected course of current diagnosis. Patient condition: Stable Critical Care Time Critical Care Time Critical Care Time: Yes Total Critical Care Time (min.): 45 Attestation: ?I spent 45 minutes of critical care time with this patient not including reportable procedures. There was an acute impairment of an organ system with a high probability of imminent or life threatening deterioration in the patient's condition. Interventions and changes required in the course of therapy are located in the chart. Time involved was spent in direct patient care, reviewing ancillary data, old records, consulting with decision makers, EMS, other doctors, giving orders and documenting. Discharge Plan Plan Patient Disposition: HOME (Self Care) Prescriptions/Referrals Prescriptions/Med Rec: New cephalexin 500 mg capsule 500 mg PO QID Qty: 40 0RF No Action acetaminophen-codeine 300-30 mg tablet 2 tab PO Q8H MDD 6 PRN (Reason: pain) Qty: 20 0RF ondansetron 4 mg tablet,disintegrating 4 mg PO TID PRN (Reason: nausea and vomiting) 30 Days Qty: 10 0RF cefdinir 300 mg capsule 300 mg PO BID Qty: 14 0RF ketorolac 10 mg tablet 10 mg PO Q8H Qty: 10 0RF Rx Instructions: maximum total duration of 5 days from all oral, intranasal, or parenteral formulations acetaminophen 650 mg tablet extended release 650 mg PO Q12H Qty: 30 0RF Biktarvy 50-200-25 mg tablet 1 tab PO QDAY Patient Comments: TAKE 1 TABLET BY MOUTH EVERY DAY FOR 30 DAYS metronidazole 250 mg Tablet 500 mg PO BID Qty: 60 0RF ketorolac 10 mg tablet 10 mg PO Q8H PRN (Reason: pain) Qty: 20 0RF Rx Instructions: maximum total duration of 5 days from all oral, intranasal, or parenteral formulations ciprofloxacin HCl [Cipro] 500 mg tablet 500 mg PO BID Qty: 20 0RF Referrals: Susie Carver PA-C [Primary Care Provider] - In 1 week Problem List Clinical Impression: Kidney stone, Complication of nephrostomy Patient/Caregiver Discharge Instructions Education Materials: Identifying Kidney Stones Additional Instructions: Important that you monitor for any signs of infection at your nephrostomy tube site. Is also very important that you take antibiotics as prescribed, and establish care with a urologist for definitive management of your kidney stone. Please return immediately if symptoms worsen or new symptoms of concern. Print Language: Cameroonian Stand Alone Forms: [employer] Award Info., Patient Portal Info Letter
[2024-11-25 07:30] LABS: Collection Type, Urine Clean Catch
[2024-11-25 07:52] LABS: Bacteria,Urine 1+; Bilirubin,Urine Negative (Negative); Blood,Urine 1+ (Negative); Clarity,Urine Cloudy (Clear/Hazy); Color,Urine Yellow (Lt Yel-Yel); Culture Indicated,Urine Contaminated; Glucose, Urine Negative (Negative); Hyaline Casts,Urine < 1 /hpf (0-1); Ketones,Urine Negative (Negative); Leukocyte Esterase,Urine Positive (Negative); Nitrite,Urine Negative (Negative); PH,Urine 6.5 (5.0-7.0); Protein,Urine 1+ (Neg - Trace); RBC,Urine 41 /hpf (0-3); Specific Gravity,Urine 1.018 (1.001-1.035); Squamous Epithelial Cell,Urine 13 /hpf (0-5); Urobilinogen,Urine Negative mg/dL (0.0-1.0); WBC,Urine 806 /hpf (0-5)
[2024-11-25 08:15] LABS: Basophils # (Auto) 0.0 Thou/mm3 (0.0-0.2); Basophils % (Auto) 1 % (0-2.5); Eosinophils # (Auto) 0.1 Thou/mm3 (0.0-0.5); Eosinophils % (Auto) 2 % (0-10); Hematocrit 39.9 % (36.0-46.0); Hemoglobin 13.7 g/dL (12.0-16.0); Immature Granulocytes Auto 0.02 Thou/mm3 (0.00-0.00); Lymphocytes # (Auto) 1.3 Thou/mm3 (1.0-4.8); Lymphocytes % (Auto) 32 % (10-50); Mean Corpuscular HGB Conc 34.3 g/dl (31.0-37.0); Mean Corpuscular Hemoglobin 32.3 pg (25.0-35.0); Mean Corpuscular Volume 94 fL (80-100); Monocytes # (Auto) 0.3 Thou/mm3 (0.0-0.8); Monocytes % (Auto) 8 % (0-12); Neutrophils # (Auto) 2.4 Thou/mm3 (1.8-7.7); Neutrophils % (Auto) 57 % (37-80); Nucleated Red Blood Cell # 0.00 Thou/mm3 (0.00-0.00); Nucleated Red Blood Cell % 0 /100 WBC (0); Platelet Count 333 Thou/mm3 (140-440); RDW Standard Deviation 39.7 fL (36.4-46.3); Red Blood Count 4.24 Miln/mm3 (4.00-5.20); White Blood Count 4.2 Thou/mm3 (3.6-11.0)
[2024-11-25 08:29] LABS: INR 1.0 (0.9-1.3); Prothrombin Time 11.1 Seconds (9.0-12.2)
[2024-11-25 08:35] LABS: Alanine Aminotransferase 14 U/L (10-49); Albumin, Serum 4.2 gm/dL (3.5-5.0); Albumin/Globulin Ratio 1.5 (1.2-2.2); Alkaline Phosphatase 46 U/L (46-116); Anion Gap 6 (7-16); Aspartate Amino Transferase 22 U/L (0-34); BUN/Creatinine Ratio 18 Ratio (12-20); Bilirubin,Total 0.3 mg/dL (0.3-1.2); Blood Urea Nitrogen 16 mg/dL (9-23); Calcium 9.6 mg/dL (8.3-10.6); Calcium (Corrected) 9.6 mg/dL (8.5-10.1); Carbon Dioxide 28.0 mMol/L (20.0-31.0); Chloride 105 mMol/L (98-107); Creatinine (Component) 0.9 mg/dL (0.6-1.3); Estimated Creatinine Clearance 73.1 mL/min (>60); Globulin 2.8 gm/dL (2.3-3.5); Glucose 92 mg/dL (74-106); Osmolality,Calculated 278 (275-295); Potassium 4.3 mMol/L (3.4-5.1); Sodium 139 mMol/L (136-145); Total Protein 7.0 gm/dL (5.7-8.2); eGFR > 60 See Note
[2024-11-25 09:06] LABS: HCG,Qualitative Serum Negative
[2024-11-25] MEDS: cefTRIAXone/D5w 1gm IV premix 1 GM/50 ML BAG IV (10:13)
--- NOTE | 2024-11-25 14:07 | PC.NURSE ---
report given to IR nurse, they will come and take pt for procedure
[2024-11-25] MEDS: LIDOCAINE INJ PF 1% 30 ML VIAL 5 ML INFL (14:25)
[2024-11-25] MEDS: fentaNYL CIT INJ 50 mCg/ML AMP 2ML 100 MCG IVP (14:35)
[2024-11-25] MEDS: ONDANSETRON INJ 2 MG/ML INJ 2 ML 4 MG IVP (15:59)
[2024-11-25] MEDS: MORPHINE SULF INJ 10 MG/ML VIAL 4 MG IVP (16:13)
== END 2024-11-25 17:25 | disposition home or self-care (01) ==
PROVIDERS: Emergency Provider Emergency Medicine; PCP Physician Assistant
DX: T83.022A Displacement of nephrostomy catheter, initial encounter (principal); Y83.2 Surgical operation with anastomosis, bypass or graft as the cause of abnormal reaction of the patient, or of later complication, without mention of misadventure at the time of the procedure
CPT/HCPCS: 50432; 36415; 74425; 76770; 80053; 81001; 84703; 85025; 85610; 96374; 96375; 99283; C1729; C1769; J0696; J2270; J2405; J3010; J3490; J7050; Q9958

== ENCOUNTER 2024-11-30 17:03 | Emergency (ER) | payer MEDICAID, SELFPAY ==
[2024-11-30 17:04] VITALS: PULSE 102; RESP 18
[2024-11-30 17:30] VITALS: BP 108/72; PULSE 80; RESP 18; TEMP 37; O2SAT 99
--- NOTE | 2024-11-30 17:48 | PD.EDRME ---
Rapid Medical Screening Exam RME Arrival date/time: 11/30/24 17:03 34-year-old female with no known medical history presents to the emergency room with a chief complaint of her nephrostomy tube leaking x 1 hour I have greeted and performed a focused initial assessment of this patient. A comprehensive ED assessment and evaluation of the patient, analysis of all test results, and completion of the medical decision making process will be conducted by additional ED providers. Chief Complaint: General Adult/Misc Complain Time Seen by Provider: 11/30/24 17:19 Vital signs: Vital Signs Temperature 98.6 F 11/30/24 17:30 Pulse Rate 80 11/30/24 17:30 Respiratory Rate 18 11/30/24 17:30 Blood Pressure 108/72 11/30/24 17:30 Pulse Oximetry (%) 99 11/30/24 17:30 Oxygen Delivery Method Room Air 11/30/24 17:30 Vital signs reviewed by provider: Yes
[2024-11-30] MEDS: KETOROLAC INJ 60 MG/2 ML VIAL 30 MG IM (18:01)
--- NOTE | 2024-11-30 20:53 | PD.EDADULT ---
ED General RME/HPI General Chief complaint: General Adult/Misc Complain Stated complaint: R) NEPHROSTOMY TUBE LEAKING Time Seen by Provider: 11/30/24 17:19 Arrival date/time: 11/30/24 17:03 Limitations: no limitations RME / HPI RME / HPI narrative: 11/30/24 17:03 34-year-old female with no known medical history presents to the emergency room with a chief complaint of her nephrostomy tube leaking x 1 hour prior to arrival. She denies any leakage from the skin site. She states the leakage is occurring near the connection tubing. She has no back pain, fevers, or chills. She has no other acute complaints.. Related Data Home Medications ?Medication ?Instructions ?Recorded ?Confirmed bictegravir 50 mg-emtricitabine 1 tab PO QDAY 10/29/24 10/29/24 200 mg-tenofovir alafenam 25 mg tablet (Biktarvy) Previous Rx's ?Medication ?Instructions ?Recorded acetaminophen 325 mg tablet 650 mg (2 x 325 mg) PO Q6H PRN 11/03/24 Pain Scale 1-3 (Mild #90 tabs metronidazole 250 mg tablet 500 mg (2 x 250 mg) PO BID #60 tabs 11/03/24 ketorolac 10 mg tablet 10 mg PO Q8H PRN pain #20 tabs 11/16/24 cephalexin 500 mg capsule 500 mg PO QID #40 caps 11/25/24 Allergies Allergy/AdvReac Type Severity Reaction Status Date / Time Penicillins Allergy Intermediate Rash Verified 11/30/24 17:06 Review of Systems Review of Systems Systems Reviewed: All systems reviewed, normal except as documented ED Exam General Limitations: Present no limitations General appearance: Present alert and in no apparent distress Head Head exam: Present atraumatic Eye Eye exam: Present normal appearance, PERRL and EOMI ENT ENT exam: Present normal exam, normal oropharynx and mucous membranes moist Neck Neck exam: Present normal inspection, full ROM and trachea midline Chest Chest inspection: Present normal inspection and symmetric chest wall rise Respiratory Respiratory exam: Present normal lung sounds bilaterally Cardiovascular Cardiovascular exam: Present regular rate, normal rhythm and normal heart sounds Abdominal Exam Abdominal exam: Present soft and normal bowel sounds Extremities Exam Extremities exam: Present normal inspection and full ROM Back Exam Back exam: Present normal inspection and full ROM Neurological Exam Neurological exam: Present alert and oriented X3 Psychiatric Psychiatric exam: Present normal affect and normal mood Skin Skin exam: Present warm, dry, intact and normal color Course Quality Measures none Orders Category Date Time Status Ketorolac Inj [Toradol Inj] Med 11/30/24 17:48 Discontinued 30 mg IM X1 ONE Vital Signs Vital signs: Vital Signs Temperature 98.6 F 11/30/24 17:30 Pulse Rate 80 11/30/24 17:30 Respiratory Rate 18 11/30/24 17:30 Blood Pressure 108/72 11/30/24 17:30 Pulse Oximetry (%) 99 11/30/24 17:30 Oxygen Delivery Method Room Air 11/30/24 17:30 Discharge Plan Plan Patient Disposition: HOME (Self Care) Patient condition on transfer: Stable Prescriptions/Referrals Prescriptions/Med Rec: No Action Biktarvy 50-200-25 mg tablet 1 tab PO QDAY Patient Comments: TAKE 1 TABLET BY MOUTH EVERY DAY FOR 30 DAYS acetaminophen 325 mg Tablet 650 mg PO Q6H PRN (Reason: Pain Scale 1-3 (Mild) Qty: 90 0RF metronidazole 250 mg Tablet 500 mg PO BID Qty: 60 0RF ketorolac 10 mg tablet 10 mg PO Q8H PRN (Reason: pain) Qty: 20 0RF Rx Instructions: maximum total duration of 5 days from all oral, intranasal, or parenteral formulations cephalexin 500 mg capsule 500 mg PO QID Qty: 40 0RF Referrals: No Primary/Family,Physician [Primary Care Provider] - In 1 week Problem List Clinical Impression: Malfunction of nephrostomy tube Patient/Caregiver Discharge Instructions Additional Instructions: - Monitor your nephrostomy tube closely. There is no active drainage at the time of our visit. - Please return anytime for worsening emergent changes for recheck as needed Print Language: Bhutanese Stand Alone Forms: [employer] Award Info., Patient Portal Info Letter MDM Narrative [facility] hospital course: 11/30/24 17:03 34-year-old female with no known medical history presents to the emergency room with a chief complaint of her nephrostomy tube leaking x 1 hour prior to arrival. She denies any leakage from the skin site. She states the leakage is occurring near the connection tubing. She has no back pain, fevers, or chills. She has no other acute complaints.. On exam, patient is nontoxic-appearing and in no visible signs distress. Skin is not erythematous, there is no fluctuance or discharge. At the time of our visit, patient states that it was noted the connection into her nephrostomy tube was simply loose and it was tightened up prior to our visit. He has not been leaking for the last 2 to 3 hours. I do believe the patient to be discharged at this time. She agrees to monitor the tubing and nephrostomy site. Follow with her primary doctor as needed. Return anytime for any emergent changes or concerns Clinical Information Provided by patient Medical Records Reviewed [facility] Lab Interpretation Labs: none Imaging Imaging interpretation: none Medication Administration(s) Medication Administration History Discontinued Medications Ketorolac Tromethamine (Ketorolac Inj 60 Mg/2 Ml Vial) 30 mg IM X1 ONE Stop: 11/30/24 17:49 Last Admin: 11/30/24 18:01 Dose: 30 mg Documented By: CAMI see above Dispositon Disposition: Discharge Home
[2024-11-30 20:58] VITALS: TEMP 37.1
[2024-11-30 20:59] VITALS: RESP 18; O2SAT 100
== END 2024-11-30 21:00 | disposition home or self-care (01) ==
PROVIDERS: Emergency Provider Nurse Practitioner Family
DX: Z43.6 Encounter for attention to other artificial openings of urinary tract (principal)
CPT/HCPCS: 96372; 99282; J1885

== ENCOUNTER 2024-12-02 04:50 | Emergency (ER) | payer MEDICAID, SELFPAY ==
[2024-12-02 05:05] VITALS: PULSE 78; RESP 16; O2SAT 98; BMI 28.3
[2024-12-02 06:25] VITALS: BP 101/74; PULSE 85; RESP 16; TEMP 36.8; O2SAT 97
--- NOTE | 2024-12-02 06:39 | PD.EDADULT ---
ED General RME/HPI General Chief complaint: General Adult/Misc Complain Stated complaint: LEAKING FROM NEPHROSTOMY TUBE Time Seen by Provider: 12/02/24 06:14 Arrival date/time: 12/02/24 04:50 34-year-old female presents to the emergency department stating that her nephrostomy tube is leaking patient reports she believes is leaking from the valve. Patient reports is not leaking from the site of insertion. Patient was no fever nausea or vomiting no other concerns Limitations: no limitations Related Data Home Medications ?Medication ?Instructions ?Recorded ?Confirmed bictegravir 50 mg-emtricitabine 1 tab PO QDAY 10/29/24 10/29/24 200 mg-tenofovir alafenam 25 mg tablet (Biktarvy) Previous Rx's ?Medication ?Instructions ?Recorded acetaminophen 325 mg tablet 650 mg (2 x 325 mg) PO Q6H PRN 11/03/24 Pain Scale 1-3 (Mild #90 tabs metronidazole 250 mg tablet 500 mg (2 x 250 mg) PO BID #60 tabs 11/03/24 ketorolac 10 mg tablet 10 mg PO Q8H PRN pain #20 tabs 11/16/24 cephalexin 500 mg capsule 500 mg PO QID #40 caps 11/25/24 Allergies Allergy/AdvReac Type Severity Reaction Status Date / Time Penicillins Allergy Intermediate Rash Verified 12/02/24 05:05 Review of Systems Review of Systems Systems Reviewed: All systems reviewed, normal except as documented Constitutional Constitutional: Reports system reviewed and no additional complaints, except as documented, Denies fever(s) and Denies headache(s) Eyes Eyes: Reports system reviewed and no additional complaints, except as documented and Denies blurry vision ENT Ears, Nose, Mouth, and Throat: Reports system reviewed and no additional complaints, except as documented, Denies headache(s), Denies nasal congestion and Denies nasal discharge Cardiovascular Cardiovascular: Reports system reviewed and no additional complaints, except as documented, Denies chest pain and Denies dyspnea Respiratory Respiratory: Reports system reviewed and no additional complaints, except as documented, Denies chest congestion, Denies cough and Denies dyspnea Gastrointestinal Gastrointestinal: Reports system reviewed and no additional complaints, except as documented and Denies abdominal pain Musculoskeletal Musculoskeletal: Reports system reviewed and no additional complaints, except as documented and Reports other (Nephrostomy tube in place) Integumentary/Breasts Skin/Breast: Reports system reviewed and no additional complaints, except as documented and Denies rash Neurologic Neurologic: Reports system reviewed and no additional complaints, except as documented, Reports as per HPI and Denies headache(s) Past Medical History Past Medical History CARDIAC: Negative Cardiac Disorders or Congestive Heart Failure RESPIRATORY: Negative Chronic Obstructive Pulmonary Disease (COPD) or Asthma GENITOURINARY: Positive Genitourinary Disorders and Kidney Stones; Negative Renal Disease ENDOCRINE: Negative Diabetes Mellitus Type 1 or Diabetes Mellitus Type 2 HEMATOLOGIC: Negative Sickle Cell Disease OTHER HISTORY: Positive Human Immunodeficiency Virus (HIV) Surgical History SURGICAL: Positive Tubal Ligation and Section Social History SMOKING STATUS: Never smoker SUBSTANCE USE: does not use ED Exam General Limitations: Present no limitations General appearance: Present alert and in no apparent distress Head Head exam: Present atraumatic Eye Eye exam: Present normal appearance, PERRL and EOMI ENT ENT exam: Present normal exam, normal oropharynx and mucous membranes moist Neck Neck exam: Present normal inspection, full ROM and trachea midline Chest Chest inspection: Present normal inspection and symmetric chest wall rise Respiratory Respiratory exam: Present normal lung sounds bilaterally Cardiovascular Cardiovascular exam: Present regular rate, normal rhythm and normal heart sounds Abdominal Exam Abdominal exam: Present soft and normal bowel sounds Extremities Exam Extremities exam: Present normal inspection and full ROM Back Exam Back exam: Present normal inspection and full ROM Back 1 view image:  1. Nephrostomy tube in place Neurological Exam Neurological exam: Present alert, oriented X3 and CN II-XII intact Psychiatric Psychiatric exam: Present normal affect and normal mood Skin Skin exam: Present warm, dry, intact and normal color Course Quality Measures none Vital Signs Vital signs: Vital Signs Temperature 98.3 F 12/02/24 06:25 Pulse Rate 85 12/02/24 06:25 Respiratory Rate 16 12/02/24 06:25 Blood Pressure 101/74 12/02/24 06:25 Pulse Oximetry (%) 97 12/02/24 06:25 Oxygen Delivery Method Room Air 12/02/24 06:25 O2 saturation 97% room air within normal limits Discharge Plan Plan Patient Disposition: HOME (Self Care) Discharge Disposition comment: Stable Prescriptions/Referrals Prescriptions/Med Rec: No Action Biktarvy 50-200-25 mg tablet 1 tab PO QDAY Patient Comments: TAKE 1 TABLET BY MOUTH EVERY DAY FOR 30 DAYS acetaminophen 325 mg Tablet 650 mg PO Q6H PRN (Reason: Pain Scale 1-3 (Mild) Qty: 90 0RF metronidazole 250 mg Tablet 500 mg PO BID Qty: 60 0RF ketorolac 10 mg tablet 10 mg PO Q8H PRN (Reason: pain) Qty: 20 0RF Rx Instructions: maximum total duration of 5 days from all oral, intranasal, or parenteral formulations cephalexin 500 mg capsule 500 mg PO QID Qty: 40 0RF Problem List Clinical Impression: Complication of nephrostomy Patient/Caregiver Discharge Instructions Additional Instructions: Please follow up with your primary care doctor in the next 24-48hrs for any worsening symptoms return here immediately Print Language: Khmer Stand Alone Forms: Carla Award Info., Patient Portal Info Letter PA/POWERHOUSE ENGINEER Supervising Physician PA/POWERHOUSE ENGINEER Supervising Physician: dr gerard MARADIAGA Narrative MDM hospital course: 34-year-old female presents to the emergency department stating that her nephrostomy tube is leaking patient reports she believes is leaking from the valve. Patient reports is not leaking from the site of insertion. Patient was no fever nausea or vomiting no other concerns I carefully examined the patient's nephrostomy tube I do not appreciate any leaking at this time valves are tightened dressing applied no evidence of infection at site Patient discharged home in no distress to follow-up with primary care doctor in the next 24 to 48 hours and for any worsening symptoms to return to the ER immediately Clinical Information Provided by none Medical Records Reviewed [facility] Meds/Rx Considered, not Ordered None Labs/Rad/Tests considered, not Ordered None Chronic Illness/Social Conditions which may negatively complicate care or outcome(s)-explain: Homeless EKG EKG not done Lab Interpretation Labs: none Imaging Imaging interpretation: none Medication Administration(s) none Diagnosis Differential dx and/or dx ruled out: Malfunction of nephrostomy tube, complication of nephrostomy tube Most likely dx, and/or detailed dx discussion: Complication of nephrostomy tube Dispositon Disposition: Discharge Home
== END 2024-12-02 06:51 | disposition home or self-care (01) ==
LOC: SERX 06:46
PROVIDERS: Emergency Provider Emergency Medicine; PCP Physician Assistant
DX: T83.032A Leakage of nephrostomy catheter, initial encounter (principal); Y84.8 Other medical procedures as the cause of abnormal reaction of the patient, or of later complication, without mention of misadventure at the time of the procedure
CPT/HCPCS: 99281

== ENCOUNTER 2024-12-07 17:42 | Emergency (ER) | payer MEDICAID, SELFPAY ==
[2024-12-07 17:43] VITALS: BP 109/76; PULSE 121; PULSE 90; RESP 17; RESP 18; TEMP 36.9; O2SAT 97; O2SAT 98; BMI 27.7
--- NOTE | 2024-12-07 18:44 | XR_ITS ---
Examination: CT abdomen and pelvis without contrast. Coronal 3-D reconstructions. Sagittal 2-D reconstructions. Date and time of exam:December 07, 2024, 1933 hrs., Comparison November 19, 2024 Indications: History right hydronephrosis, right nephrostomy tube, right-sided flank pain beginning one week ago CTDI: vol (mGy): 7.07 DLP: (mGycm): 370 Technique: Axial images of the abdomen have been obtained, 3 mm slice thickness Intravenous contrast material has not been administered. Low dose protocols were performed. One or more of the following dose reduction techniques were used; automated exposure control, adjustment of the mA and/or KV according to patient size, use of iterative reconstruction technique. Findings: No focal liver or splenic lesions Right nephrostomy tube satisfactory position Edema right kidney consistent with bilateral pyelonephritis No significant hydronephrosis, stable position 16mm proximal right ureteral calculus Normal appendix No bowel obstruction No pelvic mass Minimal thickening of urinary bladder wall Impression: Right nephrostomy tube satisfactory position Right pyelonephritis Cystitis pattern
--- NOTE | 2024-12-07 18:47 | EDNOTE_ITS ---
ED Back Injury Pain RME/HPI General Chief Complaint: Back Pain/Injury Stated Complaint: RIGHT FLANK PAIN Time Seen by Provider: 12/07/24 18:44 Arrival date/time: 12/07/24 17:42 RME / HPI RME / HPI Narrative: See MDM for Dr. Pearson's HPI Documentation. Related Data Home Medications ?Medication ?Instructions ?Recorded ?Confirmed bictegravir 50 mg-emtricitabine 1 tab PO QDAY 10/29/24 10/29/24 200 mg-tenofovir alafenam 25 mg tablet (Biktarvy) Previous Rx's ?Medication ?Instructions ?Recorded acetaminophen 325 mg tablet 650 mg (2 x 325 mg) PO Q6H PRN 11/03/24 Pain Scale 1-3 (Mild #90 tabs metronidazole 250 mg tablet 500 mg (2 x 250 mg) PO BID #60 tabs 11/03/24 ketorolac 10 mg tablet 10 mg PO Q8H PRN pain #20 ta bs 11/16/24 cephalexin 500 mg capsule 500 mg PO QID #40 caps 11/25 acetaminophen 300 mg-codeine 30 mg 2 tab PO Q8H PRN pa in #20 tabs 12/07/24 tablet cefdinir 300 mg capsule 300 mg PO BID #14 caps 12/07 ketorolac 10 mg tablet 10 mg PO Q8H PRN pain 5 days #10 12/07/24 tabs ondansetron 4 mg disintegrating 4 mg PO TID PRN nausea and 12/07/24 tablet vomiting 30 days #10 tabs Allergies Allergy/AdvReac Type Severity Reaction Status Date / Time Penicillins Allergy Intermediate Rash Verified 12/02/24 05:05 Review of Systems Review of Systems Systems Reviewed: All systems reviewed, normal except as documented Past Medical History Past Medical History GENITOURINARY: Positive Genitourinary Disorders and Kidney Stones REPRODUCTIVE: Positive Previous Pregnancies (5 PREGNANCIES) OTHER HISTORY: Positive Human Immunodeficiency Virus (HIV) Surgical History SURGICAL: Positive Tubal Ligation and Section ED Exam Narrative Physical exam: See MDM for Dr. Pearson's Physical Exam Documentation. Course Quality Measures none Orders Category Date Time Status Saline [Insert IV] NOW Care 12/07/24 18:44 Completed Straight [In and Out Catheter] X1 Care 12/07/24 18:[address] abdomen pelvis wo con Stat Exams 12/07/24 18:44 Completed Bilirubin,Direct Stat Lab 12/07/24 19:02 Completed CBC Stat Lab 12/07/24 19:02 Completed CMP [Comprehensive Metabolic Panel] Stat Lab 12/07/24 19:02 Completed HCG,Qualitative Serum Stat Lab 12/07/24 19:02 Completed Magnesium Stat Lab 12/07/24 19:02 Completed UA, C/S IF [Urinalysis, C/S if Indicated] Stat Lab 12/07/24 19:25 Completed Urine Culture Stat Lab 12/07/24 19:25 Received Ketorolac Inj [Toradol Inj] Med 12/07/24 18:44 Discontinued 30 mg IVP X1 ONE Morphine Inj Med 12/07/24 20:21 Discontinued 4 mg IVP X1 ONE Ondansetron Inj [Zofran Inj] Med 12/07/24 18:44 Discontinued 4 mg IVP X1 ONE Sodium Chloride 0.9% 1000 ml [Ns] 1,000 ml Med 12/07/24 18:44 Discontinued IV 999 mls/hr Sodium Chloride 0.9% 1000 ml [Ns] 1,000 ml Med 12/07/24 20:21 Discontinued IV 999 mls/hr cefTRIAXone/D5w 1gm IV premix [Rocephin/D5w 1gm IV Med 12/07/24 20:21 Discontinued premix] 1 g in 50 ml IV X1 Vital Signs Vital signs: Vital Signs Temperature 98.4 F 12/07/24 17:43 Pulse Rate 90 12/07/24 17:43 Respiratory Rate 17 12/07/24 17:43 Blood Pressure 109/76 12/07/24 17:43 Pulse Oximetry (%) 97 12/07/24 17:43 Oxygen Delivery Method Room Air 12/07/24 17:43 Back Pain / Injury MDM Narrative MDM Narrative:: Scribe Attestation: Verito Woodson, am scribing for and in the presence of Dr. Pearson. Provider Notation: Although this document has been carefully reviewed, there may still be some phonetic and other typographical errors. These errors are purely grammatical due to imperfections in the software program and should not be construed in any way to compromise the substance of the patient's medical care during this visit. This section includes all my notes and documentations, including HPI, PE, and ED course. Nimesh Pearson MD HPI: 34 y/o female with Hx of Right Nephrostomy Tube, Kidney Stones, and HIV BIBA with severe right flank pain for several days, severe in the past few hours. No other complaints. ROS: All negative except as documented in HPI. Physical Exam: General: Alert and oriented. Appears uncomfortable. Eyes: Conjunctivae and lids clear. ENT: No nasal congestion. Neck: Supple. Heart: RRR. Lungs: No respiratory distress. Good air movement. No rhonchi, wheezing, rales. Abdomen: Soft and nontender. Normal bowel sounds. No distension. No rebound or guarding. Back: Equivocal CVA tenderness. Skin: Warm and dry. Neuro: Alert and oriented X 3. I reviewed EMS notes. I reviewed all diagnostic test results: My review of the CT report is right pyelonephritis. Blood tests unremarkable. UA showed positive leukocyte esterase, 56 RBC, 1241 WBC. At this point, diagnoses include: Pyelonephritis. Treatment here included: Toradol 30 mg, Zofran 4 mg, IVF, Rocephin 1 G, Morphine 4 mg. Significant improvement noted. Recommended outpatient care. Based on my best medical judgment, made decision no further evaluation or treatment indicated at this time. Patient understands and agrees to the discharge instructions customized and printed, see below. Discharge instructions from Dr. Pearson: 1.? After evaluation, you have kidney infection which can cause severe pain. 2.? Take cefdinir to kill the germs causing the infection. 3.? For good hydration, increase oral fluid and maintain clear urine.? If dark or yellow, increase oral fluid. Zofran for nausea/vomiting.? Toradol and Tylenol with codeine for pain. 4.? See a private doctor on 12/31 for recheck.?? Ask to check the final urine culture results from today to make sure cefdinir doesn't need to be changed due to resistance. 5.? Seek immediate medical care with worsening, fever, or with any concerns. Nimesh Pearson MD Patient data External records reviewed:: [facility] previous records (Reviewed prior ED records from 12/02/24. Patient was seen for Complication of nephrostomy.) and EMS form Clinical information provided by:: patient and EMS Social determinants that could affect healthcare access:: none Patient has the following chronic illnesses:: Kidney Stones, HIV How is presenting disease/condition affected by chronic disease/condition?: exacerbated by Evaluation data The following diagnostics were reviewed and interpreted by me:: lab results and radiology exam(s) Lab and/or radiology exams considered but not ordered:: None Interpretation Summary: I reviewed all diagnostic test results: My review of the CT report is right pyelonephritis. Blood tests unremarkable. UA showed positive leukocyte esterase, 56 RBC, 1241 WBC. Medications / Prescriptions Medications or Prescriptions considered but not ordered:: None Medication administrations:: Medication Administration History Discontinued Medications Sodium Chloride (Ns) 1,000 mls @ 999 mls/hr IV .Q1H1M ONE Stop: 12/07/24 19:44 Last Infusion: 12/07/24 20:39 Dose: Infused Documented By: Admin: 12/07/24 19:17 Dose: 999 mls/hr Documented By: GENOVEVA Ceftriaxone Sodium/Dextrose (Rocephin/D5w 1gm Iv Premix) 1 g in 50 mls @ 100 mls/hr IV X1 ONE Stop: 12/07/24 20:50 Last Infusion: 12/07/24 21:37 Dose: Infused Documented By: Admin: 12/07/24 21:04 Dose: 100 mls/hr Documented By: GENOVEVA Sodium Chloride (Ns) 1,000 mls @ 999 mls/hr IV .Q1H1M ONE Stop: 12/07/24 21:21 Last Infusion: 12/07/24 22:27 Dose: Infused Documented By: Admin: 12/07/24 21:02 Dose: 999 mls/hr Documented By: GENOVEVA Ketorolac Tromethamine (Ketorolac Inj 30 Mg/Ml Vial) 30 mg IVP X1 ONE Stop: 12/07/24 18:45 Last Admin: 12/07/24 19:19 Dose: 30 mg Documented By: GENOVEVA Morphine Sulfate (Morphine Sulf Inj 10 Mg/Ml Vial) 4 mg IVP X1 ONE Stop: 12/07/24 20:22 Last Admin: 12/07/24 21:03 Dose: 4 mg Documented By: GENOVEVA Ondansetron HCl (Ondansetron Inj 2 Mg/Ml Inj 2 Ml) 4 mg IVP X1 ONE; Protocol Stop: 12/07/24 18:45 Last Admin: 12/07/24 19:18 Dose: 4 mg Documented By: GENOVEVA Toradol 30 mg, Zofran 4 mg, IVF, Rocephin 1 G, Morphine 4 mg. Consultations Consultation(s) initiated? (list below): No Diagnosis Differential diagnosis back pain/injury: strain of lumbar region, renal colic, pyelonephritis and other (renal calculi) Most likely diagnosis given after review of the tests above:: Pyelonephritis Admission Indicated Admission indicated?: not indicated Explain why admission is indicated or not indicated:: With significant improvement and no condition needing emergent intervention, there was no indication for admission. Admission Request Was there a request for admission?: No Disposition Plan Disposition Plan: Discharge Discharge Attestation Discharge Attestation: The patient and all family members were given an opportunity to ask questions and understood the discharge instructions. Discharge instructions specifically effects, indications for sooner follow up or return to the emergency department, and the expected course of current diagnosis. Patient condition: Stable Discharge Plan Plan Patient Disposition: HOME (Self Care) Prescriptions/Referrals Prescriptions/Med Rec: New acetaminophen-codeine 300-30 mg tablet 2 tab PO Q8H MDD 6 PRN (Reason: pain) Qty: 20 0RF ketorolac 10 mg tablet 10 mg PO Q8H PRN (Reason: pain) 5 Days Qty: 10 0RF ondansetron 4 mg tablet,disintegrating 4 mg PO TID PRN (Reason: nausea and vomiting) 30 Days Qty: 10 0RF cefdinir 300 mg capsule 300 mg PO BID Qty: 14 0RF No Action Biktarvy 50-200-25 mg tablet 1 tab PO QDAY Patient Comments: TAKE 1 TABLET BY MOUTH EVERY DAY FOR 30 DAYS acetaminophen 325 mg Tablet 650 mg PO Q6H PRN (Reason: Pain Scale 1-3 (Mild) Qty: 90 0RF metronidazole 250 mg Tablet 500 mg PO BID Qty: 60 0RF ketorolac 10 mg tablet 10 mg PO Q8H PRN (Reason: pain) Qty: 20 0RF Rx Instructions: maximum total duration of 5 days from all oral, intranasal, or parenteral formulations cephalexin 500 mg capsule 500 mg PO QID Qty: 40 0RF Referrals: No Primary/Family,Physician [Primary Care Provider] - In 1 week Problem List Clinical Impression: Pyelonephritis Patient/Caregiver Discharge Instructions Discharge Activity: activity as tolerated Education Materials: ED Pyelonephritis, Female (Adult) Additional Instructions: Discharge instructions from Dr. Pearson: 1.? After evaluation, you have kidney infection which can cause severe pain. 2.? Take cefdinir to kill the germs causing the infection. 3.? For good hydration, increase oral fluid and maintain clear urine.? If dark or yellow, increase oral fluid. Zofran for nausea/vomiting.? Toradol and Tylenol with codeine for pain. 4.? See a private doctor on 12/31 for recheck.?? Ask to check the final urine culture results from today to make sure cefdinir doesn't need to be changed due to resistance. 5.? Seek immediate medical care with worsening, fever, or with any concerns. Print Language: Thai Stand Alone Forms: Carla Award Info., Patient Portal Info Letter
[2024-12-07 19:08] LABS: Basophils # (Auto) 0.0 Thou/mm3 (0.0-0.2); Basophils % (Auto) 0 % (0-2.5); Eosinophils # (Auto) 0.1 Thou/mm3 (0.0-0.5); Eosinophils % (Auto) 1 % (0-10); Hematocrit 37.6 % (36.0-46.0); Hemoglobin 12.9 g/dL (12.0-16.0); Immature Granulocytes Auto 0.03 Thou/mm3 (0.00-0.00); Lymphocytes # (Auto) 1.0 Thou/mm3 (1.0-4.8); Lymphocytes % (Auto) 10 % (10-50); Mean Corpuscular HGB Conc 34.3 g/dl (31.0-37.0); Mean Corpuscular Hemoglobin 31.9 pg (25.0-35.0); Mean Corpuscular Volume 93 fL (80-100); Monocytes # (Auto) 0.6 Thou/mm3 (0.0-0.8); Monocytes % (Auto) 6 % (0-12); Neutrophils # (Auto) 8.3 Thou/mm3 (1.8-7.7); Neutrophils % (Auto) 83 % (37-80); Nucleated Red Blood Cell # 0.00 Thou/mm3 (0.00-0.00); Nucleated Red Blood Cell % 0 /100 WBC (0); Platelet Count 282 Thou/mm3 (140-440); RDW Standard Deviation 40.1 fL (36.4-46.3); Red Blood Count 4.05 Miln/mm3 (4.00-5.20); White Blood Count 10.1 Thou/mm3 (3.6-11.0)
[2024-12-07] MEDS: SODIUM CHLORIDE 0.9% 1000 ML 1,000 ML 999 ML IV ×2 (19:17→21:02)
[2024-12-07] MEDS: ONDANSETRON INJ 2 MG/ML INJ 2 ML 4 MG IVP (19:18)
[2024-12-07] MEDS: KETOROLAC INJ 30 MG/ML VIAL IVP (19:19)
[2024-12-07 19:20] VITALS: BP 102/64; PULSE 87; RESP 18; TEMP 37.3; O2SAT 97
[2024-12-07 19:23] LABS: HCG,Qualitative Serum Negative
[2024-12-07 19:26] LABS: Alanine Aminotransferase 37 U/L (10-49); Albumin, Serum 4.3 gm/dL (3.5-5.0); Albumin/Globulin Ratio 1.4 (1.2-2.2); Alkaline Phosphatase 61 U/L (46-116); Anion Gap 10 (7-16); Aspartate Amino Transferase 33 U/L (0-34); BUN/Creatinine Ratio 11 Ratio (12-20); Bilirubin,Direct 0.1 mg/dL (0.0-0.3); Bilirubin,Total 0.3 mg/dL (0.3-1.2); Blood Urea Nitrogen 11 mg/dL (9-23); Calcium 9.5 mg/dL (8.3-10.6); Calcium (Corrected) 9.5 mg/dL (8.5-10.1); Carbon Dioxide 22.3 mMol/L (20.0-31.0); Chloride 109 mMol/L (98-107); Creatinine (Component) 1.0 mg/dL (0.6-1.3); Estimated Creatinine Clearance 65.2 mL/min (>60); Globulin 3.1 gm/dL (2.3-3.5); Glucose 96 mg/dL (74-106); Magnesium 1.5 mg/dL (1.6-2.6); Osmolality,Calculated 280 (275-295); Potassium 4.0 mMol/L (3.4-5.1); Sodium 141 mMol/L (136-145); Total Protein 7.4 gm/dL (5.7-8.2); eGFR > 60 See Note
[2024-12-07 19:31] LABS: Collection Type, Urine Clean Catch
[2024-12-07 19:47] LABS: Bilirubin,Urine Negative (Negative); Blood,Urine 2+ (Negative); Color,Urine Yellow (Lt Yel-Yel); Glucose, Urine Negative (Negative); Ketones,Urine Negative (Negative); Leukocyte Esterase,Urine Positive (Negative); Nitrite,Urine Negative (Negative); PH,Urine 6.0 (5.0-7.0); Protein,Urine 2+ (Neg - Trace); RBC,Urine 56 /hpf (0-3); Specific Gravity,Urine 1.020 (1.001-1.035); Squamous Epithelial Cell,Urine 1 /hpf (0-5); Urobilinogen,Urine Negative mg/dL (0.0-1.0); WBC,Urine 1241 /hpf (0-5)
[2024-12-07 20:03] LABS: Clarity,Urine Turbid (Clear/Hazy); Culture Indicated,Urine Yes
[2024-12-07] MEDS: MORPHINE SULF INJ 10 MG/ML VIAL 4 MG IVP (21:03)
[2024-12-07] MEDS: cefTRIAXone/D5w 1gm IV premix 1 G/50 ML BAG IV (21:04)
[2024-12-07 21:30] VITALS: BP 109/69; PULSE 111; RESP 18; TEMP 36.7; O2SAT 97
[2024-12-07 22:28] VITALS: BP 108/86; PULSE 98; RESP 14; TEMP 37; O2SAT 99
== END 2024-12-07 22:28 | disposition home or self-care (01) ==
PROVIDERS: Emergency Provider Emergency Medicine
DX: N12 Tubulo-interstitial nephritis, not specified as acute or chronic (principal); Z93.6 Other artificial openings of urinary tract status; Z21 Asymptomatic human immunodeficiency virus [HIV] infection status
CPT/HCPCS: 36415; 74176; 80053; 81001; 82248; 83735; 84703; 85025; 87077; 87086; 87186; 96361; 96365; 96375; 99284; J0696; J1885; J2270; J2405; J7030

== ENCOUNTER 2024-12-09 01:02 | Emergency (ER) | payer MEDICAID, SELFPAY ==
[2024-12-09 01:05] VITALS: PULSE 78; RESP 16; O2SAT 96; BMI 28.3
--- NOTE | 2024-12-09 01:07 | PD.EDFMALE ---
ED Female Urogenital RME/HPI General Chief complaint: Urogenital-Female Stated complaint: RIGHT NEPHROSTOMY TUBE DISLODGEMENT Time Seen by Provider: 12/09/24 01:20 Arrival date/time: 12/09/24 01:02 RME / HPI RME / HPI Narrative: See MDM for Dr. Pearson's HPI documentation. Related Data Home Medications ?Medication ?Instructions ?Recorded ?Confirmed bictegravir 50 mg-emtricitabine 1 tab PO QDAY 10/29/24 10/29/24 200 mg-tenofovir alafenam 25 mg tablet (Biktarvy) Previous Rx's ?Medication ?Instructions ?Recorded acetaminophen 325 mg tablet 650 mg (2 x 325 mg) PO Q6H PRN 11/03/24 Pain Scale 1-3 (Mild #90 tabs metronidazole 250 mg tablet 500 mg (2 x 250 mg) PO BID #60 tabs 11/03/24 ketorolac 10 mg tablet 10 mg PO Q8H PRN pain #20 tabs 11/16/24 cephalexin 500 mg capsule 500 mg PO QID #40 caps 11/25/24 acetaminophen 300 mg-codeine 30 mg 2 tab PO Q8H PRN pain #20 tabs 12/07/24 tablet cefdinir 300 mg capsule 300 mg PO BID #14 caps 12/07/24 ketorolac 10 mg tablet 10 mg PO Q8H PRN pain 5 days #10 12/07/24 tabs ondansetron 4 mg disintegrating 4 mg PO TID PRN nausea and 12/07/24 tablet vomiting 30 days #10 tabs ciprofloxacin HCl 500 mg tablet 500 mg PO BID #20 tabs 12/09/24 (Cipro) Allergies Allergy/AdvReac Type Severity Reaction Status Date / Time Penicillins Allergy Intermediate Rash Verified 12/09/24 01:04 Review of Systems Review of Systems Systems Reviewed: All systems reviewed, normal except as documented Past Medical History Past Medical History CARDIAC: Negative Cardiac Disorders or Congestive Heart Failure RESPIRATORY: Negative Chronic Obstructive Pulmonary Disease (COPD) or Asthma GENITOURINARY: Positive Genitourinary Disorders and Kidney Stones; Negative Renal Disease REPRODUCTIVE: Positive Previous Pregnancies (5 PREGNANCIES) ENDOCRINE: Negative Diabetes Mellitus Type 1 or Diabetes Mellitus Type 2 HEMATOLOGIC: Negative Sickle Cell Disease OTHER HISTORY: Positive Human Immunodeficiency Virus (HIV) Surgical History SURGICAL: Positive Tubal Ligation and Section Social History SMOKING STATUS: Never smoker SUBSTANCE USE: does not use ED Exam Narrative Physical exam: See [facility] for Dr. Pearson's physical exam documentation. Course Quality Measures none Orders Category Date Time Status CT abdomen pelvis wo con Stat Exams 12/09/24 01:11 Completed Ciprofloxacin HCl [Ciprofloxacin] Med 12/09/24 08:18 Discontinued 500 mg PO X1 ONE Ketorolac Inj [Toradol Inj] Med 12/09/24 01:12 Discontinued 60 mg IM X1 ONE Vital Signs Vital signs: Vital Signs Temperature 98.2 F 12/09/24 01:12 Pulse Rate 77 12/09/24 01:12 Respiratory Rate 16 12/09/24 01:12 Blood Pressure 99/67 12/09/24 01:12 Pulse Oximetry (%) 97 12/09/24 01:12 Oxygen Delivery Method Room Air 12/09/24 01:12 Urogenital - Female [facility] Narrative [facility] Narrative:: This section includes all my notes and documentations, including HPI, PE, and ED course. Nimesh Pearson MD HPI: 34yo female with a history of kidney stones s/p nephrostomy tube placement BIBA here for her right nephrostomy tube leaking since last night. She was treated for pyelonephritis last night by me. No fever or chills. No nausea or vomiting. Abdominal pain and back pain and flank pain resolved. No other complaints. ROS: All negative except as documented in HPI. Physical Exam: General: Alert and oriented. No acute distress when remaining still. Eyes: Conjunctivae and lids clear. ENT: No nasal congestion. Neck: Supple. Heart: RRR. Lungs: No respiratory distress. Good air movement. No rhonchi, wheezing, rales. Abdomen: Soft and nontender. Normal bowel sounds. No distension. No rebound or guarding. Back: No CVA tenderness. Leaking nephrostomy tube noted. Skin: Warm and dry. Neuro: Alert and oriented X 3. I ordered CT abdomen pelvis. Treatment here included Toradol. At 6 AM on 12/09/2024, the care of the patient was transferred to Dr. Cheng. Nimesh Pearson MD Patient data External records reviewed:: [facility] previous records (Per chart review, patient was seen here on 12/07/24 for pyelonephritis.) and EMS form Clinical information provided by:: patient Social determinants that could affect healthcare access:: none Patient has the following chronic illnesses:: kidney stones How is presenting disease/condition affected by chronic disease/condition?: uneffected by Evaluation data The following diagnostics were reviewed and interpreted by me:: radiology exam(s) Lab and/or radiology exams considered but not ordered:: none Interpretation Summary: Pending CT abdomen pelvis at sign out. Medications / Prescriptions Medications or Prescriptions considered but not ordered:: none Medication administrations:: Medication Administration History Discontinued Medications Ciprofloxacin (Ciprofloxacin Hcl 250 Mg Tablet) 500 mg PO X1 ONE Stop: 12/09/24 08:19 Last Admin: 12/09/24 08:45 Dose: 500 mg Documented By: DO Ketorolac Tromethamine (Ketorolac Inj 60 Mg/2 Ml Vial) 60 mg IM X1 ONE Stop: 12/09/24 01:13 Last Admin: 12/09/24 01:25 Dose: 60 mg Documented By: BIB Toradol Consultations Consultation(s) initiated? (list below): No Diagnosis Urogenital Female Differential Diagnosis: other (UTI, pyelonephritis, dislodged nephrostomy tube) Most likely diagnosis given after review of the tests above:: Diagnostic tests are pending. Admission Indicated Admission indicated?: not indicated Explain why admission is indicated or not indicated:: Diagnostic tests are pending. Admission Request Was there a request for admission?: No Disposition Plan Disposition Plan: other (specify) (Signed out to Dr. Cheng at 6 AM.) Discharge Plan Plan Patient Disposition: HOME (Self Care) Prescriptions/Referrals Prescriptions/Med Rec: New ciprofloxacin HCl [Cipro] 500 mg tablet 500 mg PO BID Qty: 20 0RF No Action acetaminophen-codeine 300-30 mg tablet 2 tab PO Q8H MDD 6 PRN (Reason: pain) Qty: 20 0RF ketorolac 10 mg tablet 10 mg PO Q8H PRN (Reason: pain) 5 Days Qty: 10 0RF ondansetron 4 mg tablet,disintegrating 4 mg PO TID PRN (Reason: nausea and vomiting) 30 Days Qty: 10 0RF cefdinir 300 mg capsule 300 mg PO BID Qty: 14 0RF Biktarvy 50-200-25 mg tablet 1 tab PO QDAY Patient Comments: TAKE 1 TABLET BY MOUTH EVERY DAY FOR 30 DAYS acetaminophen 325 mg Tablet 650 mg PO Q6H PRN (Reason: Pain Scale 1-3 (Mild) Qty: 90 0RF metronidazole 250 mg Tablet 500 mg PO BID Qty: 60 0RF ketorolac 10 mg tablet 10 mg PO Q8H PRN (Reason: pain) Qty: 20 0RF Rx Instructions: maximum total duration of 5 days from all oral, intranasal, or parenteral formulations cephalexin 500 mg capsule 500 mg PO QID Qty: 40 0RF Referrals: Susie Carver PA-C [Primary Care Provider] - In 1 week Problem List Clinical Impression: Leakage of nephrostomy catheter, UTI (urinary tract infection) Patient/Caregiver Discharge Instructions Education Materials: Percutaneous Nephrostomy Dc, ED CYSTITIS Female Adult Additional Instructions: Your urine culture results show that the antibiotic Cefdinir will not treat your urine infection. A new antibiotic (ciprofloxacin) has been sent to your pharmacy. Print Language: [place]erratian Stand Alone Forms: Carla Award Info., Patient Portal Info Letter
--- NOTE | 2024-12-09 01:11 | XR_ITS ---
Examination: CT abdomen and pelvis without contrast. Coronal 3-D reconstructions. Sagittal 2-D reconstructions. Date and time of exam:December 09, 2024 0403 hours, comparison 12/07/2024 INDICATIONS: Right nephrostomy tube dislodged today, history right renal calculus CTDI: vol (mGy): 8.30 DLP: (mGycm): 436 Technique: Axial images of the abdomen have been obtained, 3 mm slice thickness Intravenous contrast material has not been administered. Low dose protocols were performed. One or more of the following dose reduction techniques were used; automated exposure control, adjustment of the mA and/or KV according to patient size, use of iterative reconstruction technique. Findings: No focal liver or splenic lesions Right percutaneous nephrostomy tube satisfactory position, edema right kidney pyelonephritis pattern no hydronephrosis No change in 16mm proximal right ureteral calculus Aorta normal size Normal appendix No bowel obstruction Mild free fluid in the pelvis Bladder intact IMPRESSION: Right nephrostomy drainage tube satisfactory position, no significant hydronephrosis Suspicious for right pyelonephritis
[2024-12-09 01:12] VITALS: BP 99/67; PULSE 77; RESP 16; TEMP 36.8; O2SAT 97
[2024-12-09] MEDS: KETOROLAC INJ 60 MG/2 ML VIAL IM (01:25)
--- NOTE | 2024-12-09 07:35 | PD.EDADDENDU ---
Emergency Room Addendum Addendum Narrative: marlo appears to be in off position. rotated to drain. Received urine culture results. Resistant to third generation cephalosporin (ie cefdinir). Sensitive to cipro. Rx cipro sent to pharmacy.
[2024-12-09 07:46] VITALS: BP 104/70; PULSE 77; RESP 18; TEMP 36.4; O2SAT 99
[2024-12-09] MEDS: CIPROFLOXACIN HCL 250 MG TABLET 500 MG PO (08:45)
== END 2024-12-09 08:50 | disposition home or self-care (01) ==
PROVIDERS: Emergency Provider Emergency Medicine; PCP Physician Assistant
DX: T83.032A Leakage of nephrostomy catheter, initial encounter (principal); N39.0 Urinary tract infection, site not specified; Y73.2 Prosthetic and other implants, materials and accessory gastroenterology and urology devices associated with adverse incidents; Z87.442 Personal history of urinary calculi
CPT/HCPCS: 74176; 96372; 99283; J1885; A9270

== ENCOUNTER 2024-12-11 18:34 | Emergency (ER) | payer MEDICAID, SELFPAY ==
[2024-12-11 19:07] VITALS: BP 114/74; PULSE 76; RESP 18; TEMP 36.8; O2SAT 98; BMI 29.2
--- NOTE | 2024-12-11 20:39 | PD.EDWOUND ---
ED Wound/Laceration-RME/HPI General Chief Complaint: Wound Recheck / Suture Removal Stated Complaint: NEEDS DRESSING CHANGE FOR RIGHT SIDE NEPHROSTOMY Time Seen by Provider: 12/11/24 19:14 Arrival date/time: 12/11/24 18:34 34F with extensive PMH including R sided nephrostomy tube presents to ED needing dressing change. Patient states home health is supposed to do it, but there's been some issue with that. Patient was recently here for a similar complaint and is on Cipro. Patient just needs a dressing change. Urine is flowing well from tube. Limitations: no limitations Related Data Home Medications ?Medication ?Instructions ?Recorded ?Confirmed bictegravir 50 mg-emtricitabine 1 tab PO QDAY 10/29/24 10/29/24 200 mg-tenofovir alafenam 25 mg tablet (Biktarvy) Previous Rx's ?Medication ?Instructions ?Recorded acetaminophen 325 mg tablet 650 mg (2 x 325 mg) PO Q6H PRN 11/03/24 Pain Scale 1-3 (Mild #90 tabs metronidazole 250 mg tablet 500 mg (2 x 250 mg) PO BID #60 tabs 11/03/24 ketorolac 10 mg tablet 10 mg PO Q8H PRN pain #20 tabs 11/16/24 cephalexin 500 mg capsule 500 mg PO QID #40 caps 11/25/24 acetaminophen 300 mg-codeine 30 mg 2 tab PO Q8H PRN pain #20 tabs 12/07/24 tablet cefdinir 300 mg capsule 300 mg PO BID #14 caps 12/07/24 ketorolac 10 mg tablet 10 mg PO Q8H PRN pain 5 days #10 12/07/24 tabs ondansetron 4 mg disintegrating 4 mg PO TID PRN nausea and 12/07/24 tablet vomiting 30 days #10 tabs ciprofloxacin HCl 500 mg tablet 500 mg PO BID #20 tabs 12/09/24 (Cipro) Allergies Allergy/AdvReac Type Severity Reaction Status Date / Time Penicillins Allergy Intermediate Rash Verified 12/11/24 18:37 Review of Systems Review of Systems Systems Reviewed: All systems reviewed, normal except as documented Constitutional Constitutional: Reports system reviewed and no additional complaints, except as documented, Denies fever(s) and Denies headache(s) ENT Ears, Nose, Mouth, and Throat: Denies disequilibrium and Denies headache(s) Cardiovascular Cardiovascular: Reports system reviewed and no additional complaints, except as documented, Denies chest pain and Denies dyspnea Respiratory Respiratory: Reports system reviewed and no additional complaints, except as documented, Denies cough and Denies dyspnea Gastrointestinal Gastrointestinal: Reports system reviewed and no additional complaints, except as documented, Denies abdominal pain, Denies nausea and Denies vomiting Neurologic Neurologic: Reports system reviewed and no additional complaints, except as documented, Denies confusion, Denies disequilibrium and Denies headache(s) Psychiatric Psychiatric: Denies confusion Past Medical History Past Medical History CARDIAC: Negative Cardiac Disorders or Congestive Heart Failure RESPIRATORY: Negative Chronic Obstructive Pulmonary Disease (COPD) or Asthma GENITOURINARY: Positive Genitourinary Disorders and Kidney Stones; Negative Renal Disease REPRODUCTIVE: Positive Previous Pregnancies (5 PREGNANCIES) ENDOCRINE: Negative Diabetes Mellitus Type 1 or Diabetes Mellitus Type 2 HEMATOLOGIC: Negative Sickle Cell Disease OTHER HISTORY: Positive Human Immunodeficiency Virus (HIV) Surgical History SURGICAL: Positive Tubal Ligation and Section Social History SMOKING STATUS: Never smoker SUBSTANCE USE: does not use ED Exam General Limitations: Present no limitations General appearance: Present alert and in no apparent distress Head Head exam: Present atraumatic Eye Eye exam: Present normal appearance, PERRL and EOMI ENT ENT exam: Present normal exam, normal oropharynx and mucous membranes moist Neck Neck exam: Present normal inspection, full ROM and trachea midline Chest Chest inspection: Present normal inspection and symmetric chest wall rise Respiratory Respiratory exam: Present normal lung sounds bilaterally Cardiovascular Cardiovascular exam: Present regular rate, normal rhythm and normal heart sounds Abdominal Exam Abdominal exam: Present soft and normal bowel sounds Extremities Exam Extremities exam: Present normal inspection and full ROM Back Exam Back exam: Present full ROM and other (R nephrostomy tube) Neurological Exam Neurological exam: Present alert, oriented X3 and CN II-XII intact Psychiatric Psychiatric exam: Present normal affect and normal mood Skin Skin exam: Present warm, dry, intact and normal color Course Quality Measures none Vital Signs Vital signs: Vital Signs Temperature 98.2 F 12/11/24 19:07 Pulse Rate 76 12/11/24 19:07 Respiratory Rate 18 12/11/24 19:07 Blood Pressure 114/74 12/11/24 19:07 Pulse Oximetry (%) 98 12/11/24 19:07 Oxygen Delivery Method Room Air 12/11/24 19:07 O2 at 98% on RA and WNLs Wound / Laceration MDM Narrative MDM Narrative:: 34F with extensive PMH including R sided nephrostomy tube presents to ED needing dressing change. Patient states home health is supposed to do it, but there's been some issue with that. Patient was recently here for a similar complaint and is on Cipro. Patient just needs a dressing change. Urine is flowing well from tube. Physical exam reveals R nephrostomy tube with urine in bag. Patient is afebrile, calm, and alert. Dressing changed. Patient data External records reviewed:: [facility] previous records Clinical information provided by:: patient Social determinants that could affect healthcare access:: substance use Patient has the following chronic illnesses:: extensive PMH including R sided nephrostomy tube How is presenting disease/condition affected by chronic disease/condition?: exacerbated by Evaluation data The following diagnostics were reviewed and interpreted by me:: other (specify) (none) Lab and/or radiology exams considered but not ordered:: not ordered Interpretation Summary: n/a Medications / Prescriptions Medications or Prescriptions considered but not ordered:: not ordered Medication administrations:: n/a Consultations Consultation(s) initiated? (list below): No Diagnosis Wound Differential Diagnosis: laceration, abrasion, avulsion of skin and other (change of dressing) Most likely diagnosis given after review of the tests above:: change of dressing Admission Indicated Admission indicated?: not indicated Admission Request Was there a request for admission?: No Disposition Plan Disposition Plan: Discharge Discharge Attestation Discharge Attestation: The patient and all family members were given an opportunity to ask questions and understood the discharge instructions. Discharge instructions specifically effects, indications for sooner follow up or return to the emergency department, and the expected course of current diagnosis. Patient condition: Stable Discharge Plan Plan Patient Disposition: HOME (Self Care) Discharge Disposition comment: Stable Prescriptions/Referrals Prescriptions/Med Rec: No Action acetaminophen-codeine 300-30 mg tablet 2 tab PO Q8H MDD 6 PRN (Reason: pain) Qty: 20 0RF ketorolac 10 mg tablet 10 mg PO Q8H PRN (Reason: pain) 5 Days Qty: 10 0RF ondansetron 4 mg tablet,disintegrating 4 mg PO TID PRN (Reason: nausea and vomiting) 30 Days Qty: 10 0RF cefdinir 300 mg capsule 300 mg PO BID Qty: 14 0RF Biktarvy 50-200-25 mg tablet 1 tab PO QDAY Patient Comments: TAKE 1 TABLET BY MOUTH EVERY DAY FOR 30 DAYS acetaminophen 325 mg Tablet 650 mg PO Q6H PRN (Reason: Pain Scale 1-3 (Mild) Qty: 90 0RF metronidazole 250 mg Tablet 500 mg PO BID Qty: 60 0RF ketorolac 10 mg tablet 10 mg PO Q8H PRN (Reason: pain) Qty: 20 0RF Rx Instructions: maximum total duration of 5 days from all oral, intranasal, or parenteral formulations cephalexin 500 mg capsule 500 mg PO QID Qty: 40 0RF ciprofloxacin HCl [Cipro] 500 mg tablet 500 mg PO BID Qty: 20 0RF Problem List Clinical Impression: Change or removal of surgical wound dressing Patient/Caregiver Discharge Instructions Additional Instructions: Please follow-up with PCP within 24-48 hours and return immediately if symptoms worsen. Print Language: Chinese Stand Alone Forms: Patient Portal Info Letter WILNER/NAVEEN Supervising Physician WILNER/NAVEEN Supervising Physician: Dr. Lee
== END 2024-12-11 19:45 | disposition home or self-care (01) ==
PROVIDERS: Emergency Provider Emergency Medicine
DX: Z48.01 Encounter for change or removal of surgical wound dressing (principal); Z93.6 Other artificial openings of urinary tract status
CPT/HCPCS: 99281

== ENCOUNTER 2024-12-14 09:46 | Emergency (ER) | payer MEDICAID, SELFPAY ==
[2024-12-14 10:07] VITALS: BP 124/81; PULSE 61; RESP 18; TEMP 36.8; O2SAT 98
--- NOTE | 2024-12-14 10:13 | XR_ITS ---
Examination: CT abdomen and pelvis without contrast. Coronal 3-D reconstructions. Sagittal 2-D reconstructions. Date and time of exam:December 14, 2024 12:33 PM INDICATIONS: History right hydronephrosis, status post nephrostomy drainage catheter placement Right ostomy tube is not draining CTDI: vol (mGy): 7.25 DLP: (mGycm): 317 Technique: Axial images of the abdomen have been obtained, 3 mm slice thickness Intravenous contrast material has not been administered. Low dose protocols were performed. One or more of the following dose reduction techniques were used; automated exposure control, adjustment of the mA and/or KV according to patient size, use of iterative reconstruction technique. Findings: No visualized liver or splenic lesions Right nephrostomy drainage catheter been partly pulled out There is mild right hydronephrosis, unchanged position of the 16mm proximal ureteral calculus No left hydronephrosis Aorta normal size No bowel obstruction 7 mm right renal calculus Normal appendix Retroverted uterus IMPRESSION: The right and possibly drainage catheter has been partially pulled out Mild right hydronephrosis
--- NOTE | 2024-12-14 10:15 | PD.EDRME ---
Rapid Medical Screening Exam RME Arrival date/time: 12/14/24 09:46 34-year-old female with a history of a right nephrostomy tube due to a 16 mm ureteral stone presents to the emergency room with a chief complaint of her nephrostomy tube not draining and right-sided flank pain x 2 days I have greeted and performed a focused initial assessment of this patient. A comprehensive ED assessment and evaluation of the patient, analysis of all test results, and completion of the medical decision making process will be conducted by additional ED providers. Chief Complaint: General Adult/Misc Complain Time Seen by Provider: 12/14/24 09:48 Vital signs: Vital Signs Temperature 98.2 F 12/14/24 10:07 Pulse Rate 61 12/14/24 10:07 Respiratory Rate 18 12/14/24 10:07 Blood Pressure 124/81 12/14/24 10:07 Pulse Oximetry (%) 98 12/14/24 10:07 Oxygen Delivery Method Room Air 12/14/24 10:07 Vital signs reviewed by provider: Yes
[2024-12-14] MEDS: KETOROLAC INJ 60 MG/2 ML VIAL 30 MG IM (10:20)
[2024-12-14 10:35] LABS: Collection Type, Urine Clean Catch
[2024-12-14 10:59] LABS: HCG Qualitative,Urine Negative
[2024-12-14 11:06] LABS: Bacteria,Urine Rare; Bilirubin,Urine Negative (Negative); Blood,Urine 2+ (Negative); Clarity,Urine Clear (Clear/Hazy); Color,Urine Lt-Yellow (Lt Yel-Yel); Glucose, Urine Negative (Negative); Ketones,Urine Negative (Negative); Leukocyte Esterase,Urine Positive (Negative); Nitrite,Urine Negative (Negative); PH,Urine 6.5 (5.0-7.0); Protein,Urine 1+ (Neg - Trace); RBC,Urine 5 /hpf (0-3); Specific Gravity,Urine 1.010 (1.001-1.035); Squamous Epithelial Cell,Urine 3 /hpf (0-5); Urobilinogen,Urine Negative mg/dL (0.0-1.0); WBC,Urine 20 /hpf (0-5)
[2024-12-14 11:13] LABS: Basophils # (Auto) 0.0 Thou/mm3 (0.0-0.2); Basophils % (Auto) 1 % (0-2.5); Eosinophils # (Auto) 0.1 Thou/mm3 (0.0-0.5); Eosinophils % (Auto) 3 % (0-10); Hematocrit 33.0 % (36.0-46.0); Hemoglobin 11.1 g/dL (12.0-16.0); Immature Granulocytes Auto 0.03 Thou/mm3 (0.00-0.00); Lymphocytes # (Auto) 1.6 Thou/mm3 (1.0-4.8); Lymphocytes % (Auto) 34 % (10-50); Mean Corpuscular HGB Conc 33.6 g/dl (31.0-37.0); Mean Corpuscular Hemoglobin 31.4 pg (25.0-35.0); Mean Corpuscular Volume 94 fL (80-100); Monocytes # (Auto) 0.4 Thou/mm3 (0.0-0.8); Monocytes % (Auto) 8 % (0-12); Neutrophils # (Auto) 2.6 Thou/mm3 (1.8-7.7); Neutrophils % (Auto) 55 % (37-80); Nucleated Red Blood Cell # 0.00 Thou/mm3 (0.00-0.00); Nucleated Red Blood Cell % 0 /100 WBC (0); Platelet Count 284 Thou/mm3 (140-440); RDW Standard Deviation 40.5 fL (36.4-46.3); Red Blood Count 3.53 Miln/mm3 (4.00-5.20); White Blood Count 4.7 Thou/mm3 (3.6-11.0)
[2024-12-14 11:23] LABS: Alanine Aminotransferase 131 U/L (10-49); Albumin, Serum 3.8 gm/dL (3.5-5.0); Albumin/Globulin Ratio 1.7 (1.2-2.2); Alkaline Phosphatase 101 U/L (46-116); Anion Gap 8 (7-16); Aspartate Amino Transferase 45 U/L (0-34); BUN/Creatinine Ratio 9 Ratio (12-20); Bilirubin,Total 0.2 mg/dL (0.3-1.2); Blood Urea Nitrogen 9 mg/dL (9-23); Calcium 8.8 mg/dL (8.3-10.6); Calcium (Corrected) 9.0 mg/dL (8.5-10.1); Carbon Dioxide 26.6 mMol/L (20.0-31.0); Chloride 104 mMol/L (98-107); Creatinine (Component) 1.0 mg/dL (0.6-1.3); Estimated Creatinine Clearance 66.9 mL/min (>60); Globulin 2.2 gm/dL (2.3-3.5); Glucose 90 mg/dL (74-106); Lipase 24 U/L (12-53); Osmolality,Calculated 276 (275-295); Potassium 4.5 mMol/L (3.4-5.1); Sodium 139 mMol/L (136-145); Total Protein 6.0 gm/dL (5.7-8.2); eGFR > 60 See Note
--- NOTE | 2024-12-14 11:33 | EDNOTE_ITS ---
ED General RME/HPI General Chief complaint: General Adult/Misc Complain Stated complaint: R) NEPHROSTOMY NOT DRAINING; R) KIDNEY PAIN Time Seen by Provider: 12/14/24 09:48 Arrival date/time: 12/14/24 09:46 CC: The right nephrostomy tube not draining HPI ongoing for the past 2 days. Patient has had the nephrostomy tube in the right side for the past 3 weeks secondary to a large stone. Patient states she is working on setting up an appointment with urologist in [place] regarding the stone in the meantime she has been using the nephrostomy tube for drainage. Patient states she has had local right flank pain for the past 2 days denies any nausea or vomiting is urinating regularly. Denies any other symptoms including chest pain shortness of breath or difficulty breathing. RME / HPI RME / HPI narrative: 12/14/24 09:46 34-year-old female with a history of a right nephrostomy tube due to a 16 mm ureteral stone presents to the emergency room with a chief complaint of her nephrostomy tube not draining and right-sided flank pain x 2 days I have greeted and performed a focused initial assessment of this patient. A comprehensive ED assessment and evaluation of the patient, analysis of all test results, and completion of the medical decision making process will be conducted by additional ED providers. Related Data Home Medications ?Medication ?Instructions ?Recorded ?Confirmed bictegravir 50 mg-emtricitabine 1 tab PO QDAY 10/29/24 10/29/24 200 mg-tenofovir alafenam 25 mg tablet (Biktarvy) Previous Rx's ?Medication ?Instructions ?Recorded metronidazole 250 mg tablet 500 mg (2 x 250 mg) PO BID #60 tabs 11/03/24 ketorolac 10 mg tablet 10 mg PO Q8H PRN pain #20 ta bs 11/16/24 cephalexin 500 mg capsule 500 mg PO QID #40 caps 11/25 acetaminophen 300 mg-codeine 30 mg 2 tab PO Q8H PRN pa in #20 tabs 12/07/24 tablet cefdinir 300 mg capsule 300 mg PO BID #14 caps 12/07 ondansetron 4 mg disintegrating 4 mg PO TID PRN nausea and 12/07/24 tablet vomiting 30 days #10 tabs ciprofloxacin HCl 500 mg tablet 500 mg PO BID #20 tabs 12/09/24 (Cipro) ketorolac 10 mg tablet 10 mg PO Q8H #10 tabs Allergies Allergy/AdvReac Type Severity Reaction Status Date / Time Penicillins Allergy Intermediate Rash Verified 12/14/24 09:48 Review of Systems Review of Systems Narrative Review of Systems: GEN: No fever, no chills, no weight loss EYES: No discharge, no visual changes, no pain HEENT: No ear pain, no congestion, no sore throat PULM: No shortness of breath, no cough, no congestion CV: No chest pain, no dyspnea on exertion, no palpitations GI: No nausea, no vomiting, no diarrhea, no pain, no constipation : No frequency, no urgency, no dysuria, + right flank pain MUSC/SKEL: No joint pain, no back pain SKIN: No rash PSYCH: No hallucinations, no depression HEME/LYMPH: No easy bleeding or bruising tendencies NEURO: No weakness, no headache Past Medical History Past Medical History CARDIAC: Negative Cardiac Disorders or Congestive Heart Failure RESPIRATORY: Negative Chronic Obstructive Pulmonary Disease (COPD) or Asthma GENITOURINARY: Positive Genitourinary Disorders and Kidney Stones (NEPHROSTOMY TUBE PLACED ON RIGHT KIDNEY DUE TO LARGE STONE); Negative Renal Disease REPRODUCTIVE: Positive Previous Pregnancies ENDOCRINE: Negative Diabetes Mellitus Type 1 or Diabetes Mellitus Type 2 HEMATOLOGIC: Negative Sickle Cell Disease OTHER HISTORY: Positive Human Immunodeficiency Virus (HIV) Surgical History SURGICAL: Positive Tubal Ligation and Section Social History SMOKING STATUS: Former smoker SUBSTANCE USE: does not use ED Exam Narrative Physical exam: [General: Not in any acute distress Head normocephalic HEENT: Within acceptable limits Neck is supple nontender Chest equal chest rise nontender to palpation Respiratory: Clear to auscultation no wheezes crackles or rubs CV: Rate rhythm is regular no murmurs rubs or clicks Abdomen is soft nontender no masses positive bowel sounds all 4 quadrants Back: Right flank nephrostomy tube emerging from the site and dressing is clean dry and intact. There is minimal amount of yellow clear urine in the drainage bag. No CVA tenderness no spinous process tenderness from cervical spine thoracic and lumbar spine Skin: Intact no petechiae rash induration ulceration or crepitus Extremities: Moving all extremity against resistance cap refill less than 2 seconds neurosensory intact Neuro: Awake alert oriented x3 Glascow coma 15 no focal deficits] Course Quality Measures none Orders Category Date Time Status CT abdomen pelvis wo con Stat Exams 12/14/24 10:13 Completed CBC Stat Lab 12/14/24 10:42 Completed CMP [Comprehensive Metabolic Panel] Stat Lab 12/14/24 10:42 Completed HCG Qualitative,Urine Stat Lab 12/14/24 10:29 Completed Lipase Stat Lab 12/14/24 10:42 Completed UA [Urinalysis] Stat Lab 12/14/24 10:29 Completed Urine Culture Stat Lab 12/14/24 10:29 Received Ketorolac Inj [Toradol Inj] Med 12/14/24 10:16 Discontinued 30 mg IM X1 ONE Vital Signs Vital signs: Vital Signs Temperature 98.2 F 12/14/24 10:07 Pulse Rate 61 12/14/24 10:07 Respiratory Rate 18 12/14/24 10:07 Blood Pressure 124/81 12/14/24 10:07 Pulse Oximetry (%) 98 12/14/24 10:07 Oxygen Delivery Method Room Air 12/14/24 10:07 Discharge Plan Plan Patient Disposition: HOME (Self Care) Patient condition on transfer: Stable Prescriptions/Referrals Prescriptions/Med Rec: New ketorolac 10 mg tablet 10 mg PO Q8H Qty: 10 0RF Rx Instructions: maximum total duration of 5 days from all oral, intranasal, or parenteral formulations Discontinued acetaminophen 325 mg Tablet 650 mg PO Q6H PRN (Reason: Pain Scale 1-3 (Mild) Qty: 90 0RF No Action acetaminophen-codeine 300-30 mg tablet 2 tab PO Q8H MDD 6 PRN (Reason: pain) Qty: 20 0RF ondansetron 4 mg tablet,disintegrating 4 mg PO TID PRN (Reason: nausea and vomiting) 30 Days Qty: 10 0RF cefdinir 300 mg capsule 300 mg PO BID Qty: 14 0RF Biktarvy 50-200-25 mg tablet 1 tab PO QDAY Patient Comments: TAKE 1 TABLET BY MOUTH EVERY DAY FOR 30 DAYS metronidazole 250 mg Tablet 500 mg PO BID Qty: 60 0RF ketorolac 10 mg tablet 10 mg PO Q8H PRN (Reason: pain) Qty: 20 0RF Rx Instructions: maximum total duration of 5 days from all oral, intranasal, or parenteral formulations cephalexin 500 mg capsule 500 mg PO QID Qty: 40 0RF ciprofloxacin HCl [Cipro] 500 mg tablet 500 mg PO BID Qty: 20 0RF Referrals: Deonte Villatoro MD [Primary Care Provider, Family Practice] - In 1 week Problem List Clinical Impression: Displacement of nephrostomy catheter, initial encounter Patient/Caregiver Discharge Instructions Other Activity Instructions:: Return in 4 days for reassessment for possible new nephrostomy tube placement. Education Materials: Percutaneous Nephrostomy Additional Instructions: Return on December 17 for reevaluation at that time there may be enough fluid buildup in the right kidney for readvancement of a new nephrostomy tube. Leave the old tube in place so that Dr León, the eventual radiologist, has a potential tract to reinsert the new one in. If there is a worsening of symptoms in spite of the medications return the emergency room imm ediately for further evaluation. Print Language: Armenian Stand Alone Forms: [employer] Award Info., Patient Portal Info Letter, Work/School Release PA/DEEP SUBMERGENCE VEHICLE CREWMEMBER Supervising Physician PA/DEEP SUBMERGENCE VEHICLE CREWMEMBER Supervising Physician: Adeel Easton ENP [facility] Clinical Information Provided by patient Medical Records Reviewed [facility] Chronic Illness/Social Conditions Add or document further as needed: Right sided ureteral lithiasis nephrostomy tube EKG EKG not done Lab Interpretation Lab(s) interpretation(s): CBC shows no leukocytosis and H&H of 11.1 and 33.0. No thrombocytopenia. CMP shows no significant electrolyte imbalances renal impairment there is very mild transaminitis with an AST of 45 ALT of 131 T. bili of 0.2. Urine shows 1+ protein 2+ blood leukocyte esterase positive WBCs at 20 RBCs at 5 rare bacteria 3+ squamous epithelia note: Urine is a specimen that was spontaneously voided CMP shows no acute electrolyte imbalances no renal impairment the T. bili is 0.2 AST 45 ALT is 131 no other transaminitis. Imaging Provider imaging interpretation(s): CT of the abdomen pelvis show that the nephrostomy tube is partially pulled out but there is not significant hydronephrosis. Radiology reports / interpretation(s): Patient's case discussed with Dr. Singleton the interventional radiology states patient should return in 3 days if there is sufficient hydronephrosis to the right he can reinsert a new nephrostomy tube to continue draining. Medication Administration(s) none Medication Administration History Discontinued Medications Ketorolac Tromethamine (Ketorolac Inj 60 Mg/2 Ml Vial) 30 mg IM X1 ONE Stop: 12/14/24 10:17 Last Admin: 12/14/24 10:20 Dose: 30 mg Documented By: CAMI Diagnosis Differential diagnosis: Nephrostomy tube failure, UTI, hydronephrosis Dispositon Disposition: Discharge Home
== END 2024-12-14 13:25 | disposition home or self-care (01) ==
PROVIDERS: Nurse Practitioner Family; Emergency Provider Emergency Medicine; PCP Family Medicine
DX: T83.022A Displacement of nephrostomy catheter, initial encounter (principal); Y83.2 Surgical operation with anastomosis, bypass or graft as the cause of abnormal reaction of the patient, or of later complication, without mention of misadventure at the time of the procedure; Y73.2 Prosthetic and other implants, materials and accessory gastroenterology and urology devices associated with adverse incidents
CPT/HCPCS: 36415; 74176; 80053; 81001; 81025; 83690; 85025; 87086; 96372; 99283; J1885

== ENCOUNTER 2024-12-17 03:46 | Emergency (ER) | payer MEDICAID, SELFPAY ==
--- NOTE | 2024-12-17 | XR_ITS ---
Examination: Fluoroscopically guided removal nephrostomy drainage tube Fluoroscopy AP abdomen 2 views Date and time: December 17, 2024, 12:11 PM INDICATIONS: No left hydronephrosis, removal left nephrostomy tube today TECHNIQUE AND FINDINGS: Informed consent provided. Timeout performed. Skin prepped over the entrance site of the nephrostomy tube and sterile drape applied hand hygiene maximum sterile barrier technique 1% lidocaine administered for local anesthesia 0.35 wire guide is introduced through the nephrostomy catheter was successful removal Estimated blood loss 1 cc Patient instable condition at completion procedure IMPRESSION: Successful fluoroscopically guided removal nephrostomy drainage tube Fluoroscopy 0.01 minute radiation dose 0.33 milligray 2 spot fluoroscopic abdomen films Postprocedure abdomen film no longer demonstrates nephrostomy tube
[2024-12-17 04:01] VITALS: BP 114/71; PULSE 73; RESP 19; TEMP 36.7; O2SAT 97; BMI 29.2
--- NOTE | 2024-12-17 04:44 | XR_ITS ---
Examination: CT abdomen and pelvis without contrast. Coronal 3-D reconstructions. Sagittal 2-D reconstructions. Date and time of exam:December 17, 2024, 0525 hrs. Indications: History right ureteral calculus, right nephrostomy tube with no drainage from the right nephrostomy tube CTDI: vol (mGy): 7.63 DLP: (mGycm): 413 Technique: Axial images of the abdomen have been obtained, 3 mm slice thickness Intravenous contrast material has not been administered. Low dose protocols were performed. One or more of the following dose reduction techniques were used; automated exposure control, adjustment of the mA and/or KV according to patient size, use of iterative reconstruction technique. Findings: No focal liver or splenic lesions. Right nephrostomy drainage tube with the tip in the middle pole calyx Again noted unchanged from multiple prior studies 13 mm calculus at the right ureteropelvic junction No bowel obstruction Mild right hydronephrosis Impression: Right nephrostomy tube as above with mild right hydronephrosis
--- NOTE | 2024-12-17 04:45 | PD.EDRME ---
Rapid Medical Screening Exam RME Arrival date/time: 12/17/24 03:46 34F with extensive PMH including R sided nephrostomy tube presents to ED with nephrostomy tube not draining. Patient was here 3 days ago for this were CT showed partially dislodged tube. Dr. Brower states if worsening hydronephrosis and no drainage from tube to return for new tube placement. Chief Complaint: General Adult/Misc Complain Vital signs: Vital Signs Temperature 98.1 F 12/17/24 04:01 Pulse Rate 73 12/17/24 04:01 Respiratory Rate 19 12/17/24 04:01 Blood Pressure 114/71 12/17/24 04:01 Pulse Oximetry (%) 97 12/17/24 04:01 Oxygen Delivery Method Room Air 12/17/24 04:01
--- NOTE | 2024-12-17 06:12 | PRELIM_ITS ---
CT abdomen and pelvis without intravenous or oral contrast. Axial images with coronal and sagittal reconstructions. Clinical history: Track nephrostomy tube. Comparison: December 09 2024 Findings: The lung bases are clear. Liver, gallbladder, spleen, adrenal glands and pancreas are unremarkable. Nonobstructing bilateral renal calculi. Right nephrostomy tube, with the tube tip migrated from the renal pelvis into a middle pole calyx. A 1.3 cm calculus at the right ureteropelvic junction, unchanged. Stable mild right hyd ronephrosis and perinephric fat stranding. The appendix is normal, best seen on image 136. Bowel caliber is normal. The abdominal wall is unremarkable. The urinary bladder is normal. No free intraperitoneal air or fluid. There is no adnexal cyst or mass. No acute osseous process. Impression: Stable right ureteropelvic junction calculus. Right nephrostomy with stable mild hydronephrosis. Report Electronically Signed By: Sang Kumar 12/17/2024 6:10:59 AM [EST]
--- NOTE | 2024-12-17 07:29 | PD.EDADULT ---
ED General RME/HPI General Chief complaint: General Adult/Misc Complain Stated complaint: NEPHROSTOMY TUBE DISPLACED Time Seen by Provider: 12/17/24 07:18 Arrival date/time: 12/17/24 03:46 34F with extensive PMH including R sided nephrostomy tube presents to ED with nephrostomy tube not draining. Patient was here 3 days ago for this were CT showed partially dislodged tube. Dr. Brower states if worsening hydronephrosis and no drainage from tube to return for new tube placement. Patient reports that she would like to have her tube removed at this time Limitations: no limitations RME / HPI RME / HPI narrative: 12/17/24 03:46 34F with extensive PMH including R sided nephrostomy tube presents to ED with nephrostomy tube not draining. Patient was here 3 days ago for this were CT showed partially dislodged tube. Dr. Brower states if worsening hydronephrosis and no drainage from tube to return for new tube placement. Related Data Home Medications ?Medication ?Instructions ?Recorded ?Confirmed bictegravir 50 mg-emtricitabine 1 tab PO QDAY 10/29/24 10/29/24 200 mg-tenofovir alafenam 25 mg tablet (Biktarvy) Previous Rx's ?Medication ?Instructions ?Recorded metronidazole 250 mg tablet 500 mg (2 x 250 mg) PO BID #60 tabs 11/03/24 ketorolac 10 mg tablet 10 mg PO Q8H PRN pain #20 tabs 11/16/24 cephalexin 500 mg capsule 500 mg PO QID #40 caps 11/25/24 acetaminophen 300 mg-codeine 30 mg 2 tab PO Q8H PRN pain #20 tabs 12/07/24 tablet cefdinir 300 mg capsule 300 mg PO BID #14 caps 12/07/24 ondansetron 4 mg disintegrating 4 mg PO TID PRN nausea and 12/07/24 tablet vomiting 30 days #10 tabs ciprofloxacin HCl 500 mg tablet 500 mg PO BID #20 tabs 12/09/24 (Cipro) acetaminophen 650 mg 650 mg PO Q12H #30 tabs 12/14/24 tablet,extended release ketorolac 10 mg tablet 10 mg PO Q8H #10 tabs 12/14/24 Allergies Allergy/AdvReac Type Severity Reaction Status Date / Time Penicillins Allergy Intermediate Rash Verified 12/14/24 09:48 Review of Systems Review of Systems Systems Reviewed: All systems reviewed, normal except as documented Constitutional Constitutional: Reports system reviewed and no additional complaints, except as documented, Denies fever(s) and Denies headache(s) Eyes Eyes: Reports system reviewed and no additional complaints, except as documented and Denies blurry vision ENT Ears, Nose, Mouth, and Throat: Reports system reviewed and no additional complaints, except as documented, Denies headache(s), Denies nasal congestion and Denies nasal discharge Cardiovascular Cardiovascular: Reports system reviewed and no additional complaints, except as documented, Denies chest pain and Denies dyspnea Respiratory Respiratory: Reports system reviewed and no additional complaints, except as documented, Denies chest congestion, Denies cough and Denies dyspnea Gastrointestinal Gastrointestinal: Reports system reviewed and no additional complaints, except as documented and Denies abdominal pain Genitourinary Genitourinary: Reports system reviewed and no additional complaints, except as documented and Reports other (Nephrostomy tube in place) Integumentary/Breasts Skin/Breast: Reports system reviewed and no additional complaints, except as documented and Denies rash Neurologic Neurologic: Reports system reviewed and no additional complaints, except as documented, Reports as per HPI and Denies headache(s) Past Medical History Past Medical History CARDIAC: Negative Cardiac Disorders or Congestive Heart Failure RESPIRATORY: Negative Chronic Obstructive Pulmonary Disease (COPD) or Asthma GENITOURINARY: Positive Genitourinary Disorders and Kidney Stones (NEPHROSTOMY TUBE PLACED ON RIGHT KIDNEY DUE TO LARGE STONE); Negative Renal Disease REPRODUCTIVE: Positive Previous Pregnancies ENDOCRINE: Negative Diabetes Mellitus Type 1 or Diabetes Mellitus Type 2 HEMATOLOGIC: Negative Sickle Cell Disease OTHER HISTORY: Positive Human Immunodeficiency Virus (HIV) Surgical History SURGICAL: Positive Tubal Ligation and Section Social History SMOKING STATUS: Never smoker SUBSTANCE USE: does not use ED Exam General Limitations: Present no limitations General appearance: Present alert and in no apparent distress Head Head exam: Present atraumatic Eye Eye exam: Present normal appearance, PERRL and EOMI; Absent conjunctival injection ENT ENT exam: Present normal exam, normal oropharynx and mucous membranes moist Neck Neck exam: Present normal inspection, full ROM and trachea midline Chest Chest inspection: Present normal inspection and symmetric chest wall rise Respiratory Respiratory exam: Present normal lung sounds bilaterally Cardiovascular Cardiovascular exam: Present regular rate, normal rhythm and normal heart sounds Abdominal Exam Abdominal exam: Present soft and normal bowel sounds; Absent distention, tenderness, guarding, rebound or rigidity Extremities Exam Extremities exam: Present normal inspection and full ROM Back Exam Back exam: Present normal inspection and full ROM Back 1 view image:  1. Nephrostomy tube in place Neurological Exam Neurological exam: Present alert, oriented X3 and CN II-XII intact Psychiatric Psychiatric exam: Present normal affect and normal mood Skin Skin exam: Present warm, dry, intact and normal color Course Quality Measures none Orders Category Date Time Status CT abdomen pelvis wo con Stat Exams 12/17/24 04:44 Completed IR nephrostomy Stat Exams 12/17/24 Ordered IR nephrostomy tube removal Stat Exams 12/17/24 Completed Acetaminophen Tab [Tylenol ES Tab] Med 12/17/24 07:28 Discontinued 1,000 mg PO X1 ONE Lidocaine 1% Pf 30 ml [Xylocaine 1% Pf 30 ml] Med 12/17/24 12:39 Discontinued 30 ml .ROUTE .STK-MED ONE Vital Signs Vital signs: Vital Signs Temperature 98.1 F 12/17/24 04:01 Pulse Rate 73 12/17/24 04:01 Respiratory Rate 19 12/17/24 04:01 Blood Pressure 114/71 12/17/24 04:01 Pulse Oximetry (%) 97 12/17/24 04:01 Oxygen Delivery Method Room Air 12/17/24 04:01 o2 sat 97 Discharge Plan Plan Patient Disposition: HOME (Self Care) Discharge Disposition comment: Stable Prescriptions/Referrals Prescriptions/Med Rec: No Action acetaminophen-codeine 300-30 mg tablet 2 tab PO Q8H MDD 6 PRN (Reason: pain) Qty: 20 0RF ondansetron 4 mg tablet,disintegrating 4 mg PO TID PRN (Reason: nausea and vomiting) 30 Days Qty: 10 0RF cefdinir 300 mg capsule 300 mg PO BID Qty: 14 0RF ketorolac 10 mg tablet 10 mg PO Q8H Qty: 10 0RF Rx Instructions: maximum total duration of 5 days from all oral, intranasal, or parenteral formulations acetaminophen 650 mg tablet extended release 650 mg PO Q12H Qty: 30 0RF Biktarvy 50-200-25 mg tablet 1 tab PO QDAY Patient Comments: TAKE 1 TABLET BY MOUTH EVERY DAY FOR 30 DAYS metronidazole 250 mg Tablet 500 mg PO BID Qty: 60 0RF ketorolac 10 mg tablet 10 mg PO Q8H PRN (Reason: pain) Qty: 20 0RF Rx Instructions: maximum total duration of 5 days from all oral, intranasal, or parenteral formulations cephalexin 500 mg capsule 500 mg PO QID Qty: 40 0RF ciprofloxacin HCl [Cipro] 500 mg tablet 500 mg PO BID Qty: 20 0RF Referrals: Shin Taylor MD [Physician, Urology] - In 1 week Problem List Clinical Impression: Malfunction of nephrostomy tube Patient/Caregiver Discharge Instructions Additional Instructions: Please follow-up with your primary care doctor in order get a referral to Dr. Taylor for worsening symptoms return immediately Print Language: Telugu Stand Alone Forms: [employer] Award Info., Patient Portal Info Letter PA/EXECUTIVE COACH Supervising Physician PA/EXECUTIVE COACH Supervising Physician: dr russell [facility] Narrative [facility] hospital course: 34F with extensive PMH including R sided nephrostomy tube presents to ED with nephrostomy tube not draining. Patient was here 3 days ago for this were CT showed partially dislodged tube. Dr. Brower states if worsening hydronephrosis and no drainage from tube to return for new tube placement. Patient reports that she would like to have her tube removed at this time Exam patient well-appearing patient does not appear toxic no distress Reviewed patient's imaging nephrostomy tube appears to be in place patient would like the tube removed as it is not draining and no longer wants the tube Explained to the patient the possible side effects of having tube removed patient states that she still wants to have it removed Nephrostomy tube IR removal ordered Consultation: I spoke with Dr. Taylor who states he can see the patient on an outpatient basis for treatment Patient discharged home in no distress to follow-up with primary care doctor in the next 24 to 48 hours and for any worsening symptoms to return to the ER immediately Clinical Information Provided by patient Medical Records Reviewed [facility] Meds/Rx Considered, not Ordered None Labs/Rad/Tests considered, not Ordered None Chronic Illness/Social Conditions which may negatively complicate care or outcome(s)-explain: None or not applicable EKG EKG not done Lab Interpretation Labs: none Imaging Imaging interpretation: see narrative above Provider imaging interpretation(s): Ordered Radiology reports / interpretation(s): Reviewed by me Medication Administration(s) Medication Administration History Discontinued Medications Acetaminophen (Acetaminophen 500 Mg Tablet) 1,000 mg PO X1 ONE Stop: 12/17/24 07:29 Last Admin: 12/17/24 07:43 Dose: 1,000 mg Documented By: GM Lidocaine HCl (Lidocaine Inj Pf 1% 30 Ml Vial) Confirm Administered Dose 30 ml .ROUTE .K-MED ONE Stop: 12/17/24 12:40 Last Admin: 12/17/24 13:11 Dose: Not Given Documented By: Non-Admin Reason: Other, see note Given Consultations/Discussions re: Management Consult #1: Physician, specialty, service, details: dr taylor Diagnosis Differential diagnosis: Nephrostomy tube dislodged, nephrostomy tube malfunction Most likely dx, and/or detailed dx discussion: Nephrostomy tube malfunction Dispositon Disposition: Discharge Home
[2024-12-17] MEDS: ACETAMINOPHEN 500 MG TABLET 1000 MG PO (07:43)
== END 2024-12-17 13:13 | disposition home or self-care (01) ==
PROVIDERS: Emergency Provider Family Medicine; PCP Family Medicine
DX: T83.022A Displacement of nephrostomy catheter, initial encounter (principal); Y73.2 Prosthetic and other implants, materials and accessory gastroenterology and urology devices associated with adverse incidents
CPT/HCPCS: 50389; 74176; 99284; A9270

== ENCOUNTER 2025-01-03 00:08 | Emergency (ER) | payer MEDICAID, SELFPAY ==
[2025-01-03 00:09] VITALS: PULSE 86; RESP 18; O2SAT 99; BMI 29.2
[2025-01-03 00:29] VITALS: BP 118/80; PULSE 93; RESP 20; TEMP 36.8; O2SAT 100
--- NOTE | 2025-01-03 00:34 | XR_ITS ---
Examination: CT abdomen and pelvis without contrast. Coronal 3-D reconstructions. Sagittal 2-D reconstructions. Date and time of exam:January 03, 2025, 0156 hrs., Comparison 12/17/2024 Indications: History flank pain today, history 13 mm calculus at the right ureteropelvic junction with right hydronephrosis, and placement right nephrostomy tube CTDI: vol (mGy): 7.38 DLP: (mGycm): 439 Technique: Axial images of the abdomen have been obtained, 3 mm slice thickness Intravenous contrast material has not been administered. Low dose protocols were performed. One or more of the following dose reduction techniques were used; automated exposure control, adjustment of the mA and/or KV according to patient size, use of iterative reconstruction technique. Findings: No focal liver or splenic lesion Contracted gallbladder No pancreatic or adrenal mass Bilateral renal calculi Moderate right hydronephrosis wall thickening of the right pelvicalyceal system wall thickening of the right ureter and unchanged 13 mm calculus proximal right ureter Aorta normal size Normal appendix No bowel obstruction Urinary bladder intact Impression: Moderate right hydronephrosis, findings most consistent with right pyelonephritis, Persistent 13 mm proximal right ureteral calculus
--- NOTE | 2025-01-03 00:35 | PD.EDRME ---
Rapid Medical Screening Exam RME Arrival date/time: 01/03/25 00:08 This is a case of 34-year-old female with history of kidney stone came in in the emergency room due to bilateral flank pain radiating to the abdomen with nausea and vomiting today worsening of the symptoms this patient decided to sought consult here in the emergency room Chief Complaint: Back Pain/Injury Time Seen by Provider: 01/03/25 00:34 Vital signs: Vital Signs Temperature 98.3 F 01/03/25 00:29 Pulse Rate 93 01/03/25 00:29 Respiratory Rate 20 01/03/25 00:29 Blood Pressure 118/80 01/03/25 00:29 Pulse Oximetry (%) 100 01/03/25 00:29 Oxygen Delivery Method Room Air 01/03/25 00:29
[2025-01-03] MEDS: KETOROLAC INJ 60 MG/2 ML VIAL IM (00:43)
[2025-01-03] MEDS: ONDANSETRON INJ 2 MG/ML INJ 2 ML 4 MG IM (00:44)
[2025-01-03 01:00] LABS: Basophils # (Auto) 0.0 Thou/mm3 (0.0-0.2); Basophils % (Auto) 0 % (0-2.5); Eosinophils # (Auto) 0.2 Thou/mm3 (0.0-0.5); Eosinophils % (Auto) 1 % (0-10); Hematocrit 38.6 % (36.0-46.0); Hemoglobin 13.2 g/dL (12.0-16.0); Immature Granulocytes Auto 0.06 Thou/mm3 (0.00-0.00); Lymphocytes # (Auto) 2.2 Thou/mm3 (1.0-4.8); Lymphocytes % (Auto) 17 % (10-50); Mean Corpuscular HGB Conc 34.2 g/dl (31.0-37.0); Mean Corpuscular Hemoglobin 32.0 pg (25.0-35.0); Mean Corpuscular Volume 94 fL (80-100); Monocytes # (Auto) 0.8 Thou/mm3 (0.0-0.8); Monocytes % (Auto) 6 % (0-12); Neutrophils # (Auto) 9.4 Thou/mm3 (1.8-7.7); Neutrophils % (Auto) 74 % (37-80); Nucleated Red Blood Cell # 0.00 Thou/mm3 (0.00-0.00); Nucleated Red Blood Cell % 0 /100 WBC (0); Platelet Count 239 Thou/mm3 (140-440); RDW Standard Deviation 42.5 fL (36.4-46.3); Red Blood Count 4.13 Miln/mm3 (4.00-5.20); White Blood Count 12.6 Thou/mm3 (3.6-11.0)
[2025-01-03 01:21] LABS: Alanine Aminotransferase 78 U/L (10-49); Albumin, Serum 4.1 gm/dL (3.5-5.0); Albumin/Globulin Ratio 1.6 (1.2-2.2); Alkaline Phosphatase 71 U/L (46-116); Anion Gap 8 (7-16); Aspartate Amino Transferase 41 U/L (0-34); BUN/Creatinine Ratio 13 Ratio (12-20); Bilirubin,Total 0.3 mg/dL (0.3-1.2); Blood Urea Nitrogen 13 mg/dL (9-23); Calcium 9.8 mg/dL (8.3-10.6); Calcium (Corrected) 9.8 mg/dL (8.5-10.1); Carbon Dioxide 26.8 mMol/L (20.0-31.0); Chloride 106 mMol/L (98-107); Creatinine (Component) 1.0 mg/dL (0.6-1.3); Estimated Creatinine Clearance 66.9 mL/min (>60); Globulin 2.6 gm/dL (2.3-3.5); Glucose 116 mg/dL (74-106); Lipase 40 U/L (12-53); Osmolality,Calculated 282 (275-295); Potassium 4.1 mMol/L (3.4-5.1); Sodium 141 mMol/L (136-145); Total Protein 6.7 gm/dL (5.7-8.2); eGFR > 60 See Note
[2025-01-03 01:22] LABS: Collection Type, Urine Clean Catch
[2025-01-03 01:39] LABS: HCG Qualitative,Urine Negative
[2025-01-03 01:41] LABS: Bacteria,Urine 1+; Bilirubin,Urine Negative (Negative); Blood,Urine 1+ (Negative); Clarity,Urine Turbid (Clear/Hazy); Color,Urine Yellow (Lt Yel-Yel); Glucose, Urine Negative (Negative); Ketones,Urine Negative (Negative); Leukocyte Esterase,Urine Positive (Negative); Nitrite,Urine Positive (Negative); PH,Urine 6.5 (5.0-7.0); Protein,Urine 2+ (Neg - Trace); RBC,Urine 31 /hpf (0-3); Specific Gravity,Urine 1.018 (1.001-1.035); Squamous Epithelial Cell,Urine 4 /hpf (0-5); Urobilinogen,Urine Negative mg/dL (0.0-1.0); WBC,Urine 34 /hpf (0-5)
--- NOTE | 2025-01-03 03:31 | PRELIM_ITS ---
CT scan of the abdomen and pelvis without intravenous contrast (axial sections with sagittal and coronal reformats) January 03, 2025 0156 hours Clinical History: Kidney stone Comparison: December 17, 2024. Findings: There is interval removal of the previously noted a percutaneous nephrostomy tube. Bilateral nonobstructing renal calculi are again noted, the largest measuring 8 mm in the upper pole of the right kidney. A 1.3 x 1 cm obstructing right proximal ureteric calculus is again noted with moderate right hydro ureteronephrosis. There is interval increase of severity of hydronephrosis, which may be related to interval removal of a percutaneous nephrostomy. There is associated right perinephric and periureteric fat stranding. The liver, gallbladder, spleen, adrenals and pancreas are unremarkable on this noncontrast study. There is no bowel obstruction. The appendix is within normal limits and retrocecal in location. Moderate amount of fecal material is seen in the colon. The aorta is unremarkable on this noncontrast study. The urinary bladder is partially distended and shows mild wall thickening; possibility of cystitis cannot be excluded. The uterus is unremarkable. Tubal ligation clips are seen. Calcific densities are seen in the pelvis, likely representing phleboliths. There is a 1.5 cm dominant right ovarian follicle. There is no free fluid or free air. The osseous structures are unremarkable. Dependent atelectasis is seen at the visualized lung bases. There is no pleural effusion. Please note that evaluation of soft tissue/vascular structures and bowel loops is limited due to absence of IV and oral contrast. Impression: 1. Interval removal of a right nephrostomy tube. 2. A 1.3 x 1 cm obstructing right proximal ureteric calculus with moderate right hydronephrosis (with slight interval increase of severity of hydronephrosis since prior study). 3. Mild right perinephric fat stranding; possibility of pyelonephritis/ureteritis cannot be excluded. 4. Nonobstructing bilateral renal calculi. 5. Other findings as described above. Suggest clinical correlation and follow up accordingly. Report Electronically Signed By: Chung Childers 01/03/2025 3:30:05 AM [EST]
--- NOTE | 2025-01-03 04:18 | PD.EDBACK ---
ED Back Injury Pain RME/HPI General Chief Complaint: Back Pain/Injury Stated Complaint: R LOW BACK PAIN Time Seen by Provider: 01/03/25 00:34 Arrival date/time: 01/03/25 00:08 RME / HPI RME / HPI Narrative: 01/03/25 00:08 This is a case of 34-year-old female with history of kidney stone came in in the emergency room due to bilateral flank pain radiating to the abdomen with nausea and vomiting today worsening of the symptoms this patient decided to sought consult here in the emergency room DR. LADD MAIN ED EVALUATION: Patient with Hx of right-sided hydronephrosis seen in early December for dislodgment of right nephrostomy tube which was discontinued at 1 week [employer]. Now presenting with underlying right flank pain x 24 hours. No definite fever but does report chills, and several bouts of vomiting within the last 24 hours. Reports dysuria, denies urinary frequency and urgency. LMP 12/07. PMH: Hydronephrosis, HIV, Kidney Stones. PSH: Nephrostomy tube placement. Allergies: Penicillin Social: No tobacco or alcohol consumption. Related Data Home Medications ?Medication ?Instructions ?Recorded ?Confirmed bictegravir 50 mg-emtricitabine 1 tab PO QDAY 10/29/24 10/29/24 200 mg-tenofovir alafenam 25 mg tablet (Biktarvy) Previous Rx's ?Medication ?Instructions ?Recorded metronidazole 250 mg tablet 500 mg (2 x 250 mg) PO BID #60 tabs 11/03/24 ketorolac 10 mg tablet 10 mg PO Q8H PRN pain #20 tabs 11/16/24 cephalexin 500 mg capsule 500 mg PO QID #40 caps 11/25/24 acetaminophen 300 mg-codeine 30 mg 2 tab PO Q8H PRN pain #20 tabs 12/07/24 tablet cefdinir 300 mg capsule 300 mg PO BID #14 caps 12/07/24 ondansetron 4 mg disintegrating 4 mg PO TID PRN nausea and 12/07/24 tablet vomiting 30 days #10 tabs ciprofloxacin HCl 500 mg tablet 500 mg PO BID #20 tabs 09/03/25 (Cipro) acetaminophen 650 mg 650 mg PO Q12H #30 tabs 12/14/24 tablet,extended release ketorolac 10 mg tablet 10 mg PO Q8H #10 tabs 12/14/24 Allergies Allergy/AdvReac Type Severity Reaction Status Date / Time Penicillins Allergy Intermediate Rash Verified 01/03/25 00:13 Review of Systems Review of Systems Systems Reviewed: All systems reviewed, normal except as documented Past Medical History Past Medical History GENITOURINARY: Positive Genitourinary Disorders and Kidney Stones (NEPHROSTOMY TUBE PLACED ON RIGHT KIDNEY DUE TO LARGE STONE) REPRODUCTIVE: Positive Previous Pregnancies OTHER HISTORY: Positive Human Immunodeficiency Virus (HIV) Surgical History SURGICAL: Positive Tubal Ligation and Section ED Exam Narrative Physical exam: GEN. APPEARANCE: The patient is alert awake oriented X-3 in no distress, lying down comfortably, does not look ill/toxic. Patient has good eye contact. Patient is cooperative. VITALS: All vitals were reviewed and the pulse ox is 100% on room air which is normal according to my interpretation. HEENT: Normocephalic, atraumatic. Pupils are equal and reactive. Oral mucosa is moist. Patent Nares NECK: Supple, nontender, no thyromegaly, no meningismus, no JVD, no step offs CHEST: Symmetrical, atraumatic, and with equal expansion , Nontender on palpation no deformity and no crepitus. CARDIOVASCULAR: Heart regular rhythm no murmur or gallop rub or extra beats. LUNGS: Clear to auscultation bilaterally with symmetrical chest rise. No laboring tachypnea or wheezing. No intercostal subcostal retraction. No rales and no rhonchi. ABDOMEN: Soft, flat, Mild tenderness to RLQ radiating into right flank and 2+ CVA tenderness, no guarding or rebound tenderness. There are no abnormal masses palpated. Active and normal bowel sounds. EXTREMITIES: Nontender. No edema. No cyanosis. Patient is able to move all 4 extremities well, with full ROM and good CSM. SKIN: Warm and dry, no jaundice or rashes noted. MUSCULOSKELETAL: No lubar or midline bony tenderness. There is no CVA tenderness. No paraspinal muscle spasm or tenderness. NEURO: Patient is WARNER x 4, Cranial nerves II through XII grossly intact. There is no focal neurologic deficits noted. GCS is 15, PNS and CARDIOLOGY TECH appear grossly intact. PSYCHIATRIC: Patient is in normal mood and affect, cooperative, no SI or HI or hallucinations. Course Quality Measures none Orders Category Date Time Status CT abdomen pelvis wo con Stat Exams 01/03/25 00:34 Taken CBC Stat Lab 01/03/25 00:51 Completed Comprehensive Metabolic Panel Stat Lab 01/03/25 00:51 Completed HCG Qualitative,Urine Stat Lab 01/03/25 01:10 Completed Lipase Stat Lab 01/03/25 00:51 Completed Urinalysis Stat Lab 01/03/25 01:10 Completed Ketorolac Inj [Toradol Inj] Med 01/03/25 00:34 Discontinued 60 mg IM X1 ONE Levofloxacin/D5w 500 mg Ivpb [Levaquin Ivpb] Med 01/03/25 09:00 Discontinued 500 mg in 100 ml IV QDAY Levofloxacin/D5w 500 mg Ivpb [Levaquin Ivpb] Med 01/03/25 04:30 Discontinued 500 mg in 100 ml IV X1 Morphine* Inj Med 01/03/25 04:25 Discontinued 4 mg IVP X1 ONE Ondansetron Inj [Zofran Inj] Med 01/03/25 00:34 Discontinued 4 mg IM X1 ONE Prochlorperazine Inj [Compazine Inj] Med 01/03/25 04:22 Discontinued 5 mg IM X1 ONE Sodium Chloride 0.9% 1000 ml [Ns] 1,000 ml Med 01/03/25 04:24 Discontinued IV 999 mls/hr Vital Signs Vital signs: Vital Signs Temperature 98.3 F 01/03/25 00:29 Pulse Rate 93 01/03/25 00:29 Respiratory Rate 20 01/03/25 00:29 Blood Pressure 118/80 01/03/25 00:29 Pulse Oximetry (%) 100 01/03/25 00:29 Oxygen Delivery Method Room Air 01/03/25 00:29 Back Pain / Injury MDM Narrative MDM Narrative:: Scribe Attestation: Verito Woodson, am scribing for and in the presence of Dr. Ladd. Provider Notation: Although this document has been carefully reviewed, there may still be some phonetic and other typographical errors. These errors are purely grammatical due to imperfections in the software program and should not be construed in any way to compromise the substance of the patient's medical care during this visit. Patient with Hx of right-sided hydronephrosis seen in early December for dislodgment of right nephrostomy tube which was discontinued at 1 week [employer]. Now presenting with underlying right flank pain x 24 hours. Please see PE findings. Laboratory markers including CBC show elevated WBC of 12.6, normal hemoglobin and platelet count. No left shift or bandemia. Serum chemistries demonstrate normal renal function. UA demonstrates positive nitrite reaction, pyuria, and evidence or bacteuria. Patient hydrated with NS, administered IV imperic ABX including Levaquin based upon previous micro-reports. Also administered NSAIDs/Anti-emetics, and low-dose narcotic analgesics. CT scan does indicate slight interval worsening of previously diagnosed hydronephrosis concerning for possible need for replacement of nephrostomy tube. Will consult urology and formulate disposition. Please see AM physician's noted. Patient data External records reviewed:: [facility] previous records (Reviewed prior ED records from 12/17/24. Patient was seen for Malfunction of nephrostomy tube.) Clinical information provided by:: patient Social determinants that could affect healthcare access:: none Patient has the following chronic illnesses:: Hydronephrosis, HIV, Kidney Stones. How is presenting disease/condition affected by chronic disease/condition?: exacerbated by Evaluation data The following diagnostics were reviewed and interpreted by me:: lab results and radiology exam(s) Lab and/or radiology exams considered but not ordered:: None Interpretation Summary: RADIOLOGY Abdomen/Pelvis CT: Findings: There is interval removal of the previously noted a percutaneous nephrostomy tube. Bilateral nonobstructing renal calculi are again noted, the largest measuring 8 mm in the upper pole of the right kidney. A 1.3 x 1 cm obstructing right proximal ureteric calculus is again noted with moderate right hydroureteronephrosis. There is interval increase of severity of hydronephrosis, which may be related to interval removal of a percutaneous nephrostomy. There is associated right perinephric and periureteric fat stranding. The liver, gallbladder, spleen, adrenals and pancreas are unremarkable on this noncontrast study. There is no bowel obstruction. The appendix is within normal limits and retrocecal in location. Moderate amount of fecal material is seen in the colon. The aorta is unremarkable on this noncontrast study. The urinary bladder is partially distended and shows mild wall thickening; possibility of cystitis cannot be excluded. The uterus is unremarkable. Tubal ligation clips are seen. Calcific densities are seen in the pelvis, likely representing phleboliths. There is a 1.5 cm dominant right ovarian follicle. There is no free fluid or free air. The osseous structures are unremarkable. Dependent atelectasis is seen at the visualized lung bases. There is no pleural effusion. Please note that evaluation of soft tissue/vascular structures and bowel loops is limited due to absence of IV and oral contrast. Impression: 1. Interval removal of a right nephrostomy tube. 2. A 1.3 x 1 cm obstructing right proximal ureteric calculus with moderate right hydronephrosis (with slight interval increase of severity of hydronephrosis since prior study). 3. Mild right perinephric fat stranding; possibility of pyelonephritis/ureteritis cannot be excluded. 4. Nonobstructing bilateral renal calculi. 5. Other findings as described above. Suggest clinical correlation and follow up accordingly. Medications / Prescriptions Medications or Prescriptions considered but not ordered:: None Medication administrations:: Medication Administration History Discontinued Medications Sodium Chloride (Ns) 1,000 mls @ 999 mls/hr IV .Q1H1M ONE Stop: 01/03/25 05:24 Last Infusion: 01/03/25 05:49 Dose: Infused Documented By: Admin: 01/03/25 04:48 Dose: 999 mls/hr Documented By: MATTHIEU Levofloxacin/Dextrose (Levaquin Ivpb) 500 mg in 100 mls @ 100 mls/hr IV QDAY GENI Stop: 01/10/25 08:59 Levofloxacin/Dextrose (Levaquin Ivpb) 500 mg in 100 mls @ 100 mls/hr IV X1 ONE Stop: 01/03/25 05:29 Last Infusion: 01/03/25 05:50 Dose: Infused Documented By: Admin: 01/03/25 04:50 Dose: 100 mls/hr Documented By: MATTHIEU Ketorolac Tromethamine (Ketorolac Inj 60 Mg/2 Ml Vial) 60 mg IM X1 ONE Stop: 01/03/25 00:35 Last Admin: 01/03/25 00:43 Dose: 60 mg Documented By: BD Morphine Sulfate (Morphine Sulf Inj 4 Mg/Ml Vial) 4 mg IVP X1 ONE Stop: 01/03/25 04:26 Last Admin: 01/03/25 04:49 Dose: 4 mg Documented By: DT Ondansetron HCl (Ondansetron Inj 2 Mg/Ml Inj 2 Ml) 4 mg IM X1 ONE; Protocol Stop: 01/03/25 00:35 Last Admin: 01/03/25 00:44 Dose: 4 mg Documented By: BD Prochlorperazine Edisylate (Prochlorperazine Inj 5 Mg/Ml Vial 2 Ml) 5 mg IM X1 ONE; Protocol Stop: 01/03/25 04:23 Last Admin: 01/03/25 04:51 Dose: 5 mg Documented By: DT See above if any Consultations Consultation(s) initiated? (list below): No Diagnosis Differential diagnosis back pain/injury: lumbar radiculopathy, sciatica, strain of lumbar region, renal colic, pyelonephritis and thoracic back pain Most likely diagnosis given after review of the tests above:: Urinary tract infection, Hydronephrosis of right kidney Admission Indicated Admission indicated?: not indicated Explain why admission is indicated or not indicated:: Pending consult with urology. Admission Request Was there a request for admission?: No Disposition Plan Disposition Plan: other (specify) (Signed out to Dr. Gotti at 6 AM) Discharge Plan Prescriptions/Referrals Prescriptions/Med Rec: No Action acetaminophen-codeine 300-30 mg tablet 2 tab PO Q8H MDD 6 PRN (Reason: pain) Qty: 20 0RF ondansetron 4 mg tablet,disintegrating 4 mg PO TID PRN (Reason: nausea and vomiting) 30 Days Qty: 10 0RF cefdinir 300 mg capsule 300 mg PO BID Qty: 14 0RF ketorolac 10 mg tablet 10 mg PO Q8H Qty: 10 0RF Rx Instructions: maximum total duration of 5 days from all oral, intranasal, or parenteral formulations acetaminophen 650 mg tablet extended release 650 mg PO Q12H Qty: 30 0RF Biktarvy 50-200-25 mg tablet 1 tab PO QDAY Patient Comments: TAKE 1 TABLET BY MOUTH EVERY DAY FOR 30 DAYS metronidazole 250 mg Tablet 500 mg PO BID Qty: 60 0RF ketorolac 10 mg tablet 10 mg PO Q8H PRN (Reason: pain) Qty: 20 0RF Rx Instructions: maximum total duration of 5 days from all oral, intranasal, or parenteral formulations cephalexin 500 mg capsule 500 mg PO QID Qty: 40 0RF ciprofloxacin HCl [Cipro] 500 mg tablet 500 mg PO BID Qty: 20 0RF Referrals: No Primary/Family,Physician [Primary Care Provider] - In 1 week Problem List Clinical Impression: Urinary tract infection, Hydronephrosis of right kidney Patient/Caregiver Discharge Instructions Print Language: Wolof
[2025-01-03 04:24] VITALS: BP 101/72; PULSE 80; RESP 14; TEMP 37; O2SAT 99
[2025-01-03] MEDS: SODIUM CHLORIDE 0.9% 1000 ML 1,000 ML 999 ML IV (04:48)
[2025-01-03] MEDS: MORPHINE SULF INJ 4 MG/ML VIAL IVP (04:49)
[2025-01-03] MEDS: LEVOFLOXACIN/D5W 500 MG IVPB 500 MG/100 ML BAG 100 MG IV (04:50)
[2025-01-03] MEDS: PROCHLORPERAZINE INJ 5 MG/ML VIAL 2 ML IM (04:51)
--- NOTE | 2025-01-03 06:23 | PD.EDADDENDU ---
Emergency Room Addendum <Ana Gotti MD - Last Filed: 01/03/25 07:50> Addendum Narrative: 0600: Care assumed from Dr. Connor, the previous shift emergency physician. Past medical, surgical, social and family history reviewed. Vitals and home medications reviewed. I will assume the care of the patient at this time, pending transfer for urology. Please refer to the emergency department record for history and examination from initial visit.? Patient is a 34-year-old female with medical history notable for right-sided kidney stone, right-sided nephrostomy tube complicated by recurrent episodes of dislodgment of send emergency department with concerns for flank pain. Patient was evaluated overnight, patient did not present septic or toxic appearing. Has a white blood cell count of 12, does not have a left shift. No significant metabolic derangements, however does have a mild transaminitis with normal T. bili, AST 41, ALT 78. Urinalysis is turbid, nitrate positive, leuk esterase positive, has 31 red blood cells, 34 white blood cells, 1+ bacteria. She received antibiotics and fluids overnight as well as medications for pain relief. She received Levaquin based on prior micro results. CT scan shows moderate right hydronephrosis, concerning for pyelonephritis. Patient has a 13 mm proximal right ureteral calculus. Given these findings we will consult urology and patient may need transfer for definitive management given that we do not have IR capabilities today and will not be able to place a nephrostomy tube. Per chart review patient came to the emergency department on December 17 for a partially dislodged nephrostomy tube. The recommendation was to have the nephrostomy tube replaced however patient elected to have the nephrostomy tube removed. Also per chart review Dr. Taylor is her urologist. My evaluation patient hemodynamically stable, not in distress however continues to have right flank pain. Discussed with patient, she is open and amenable to having replacement of the nephrostomy tube. Discussed test HPI, PMHx, lab, radiology results and/or management with urologist Dr. Taylor. Recommends transfer. 7:49a: Discussed case with urologist Dr. Faria, kindly accepted patient for transfer. Total critical care time: Approximately?35 minutes Due to a high probability of clinically significant, life threatening deterioration, the patient required my highest level of preparedness to intervene emergently and I personally spent this critical care time directly and personally managing the patient. This critical care time included obtaining a history; examining the patient; pulse oximetry; ordering and review of studies; arranging urgent treatment with development of a management plan; evaluation of patient's response to treatment; frequent reassessment; and, discussions with other providers. This critical care time was performed to assess and manage the high probability of imminent, life-threatening deterioration that could result in multi-organ failure. It was exclusive of separately billable procedures and treating other patients and teaching time. Please see MDM section and the rest of the note for further information on patient assessment and treatment. <Aurora Alexandra - Last Filed: 01/03/25 07:44> Addendum Narrative: 0600: Care assumed from Dr. Connor, the previous shift emergency physician. Past medical, surgical, social and family history reviewed. Vitals and home medications reviewed. I will assume the care of the patient at this time, pending transfer for urology. Please refer to the emergency department record for history and examination from initial visit.? Patient is a 34-year-old female with medical history notable for right-sided kidney stone, right-sided nephrostomy tube complicated by recurrent episodes of dislodgment of send emergency department with concerns for flank pain. Patient was evaluated overnight, patient did not present septic or toxic appearing. Has a white blood cell count of 12, does not have a left shift. No significant metabolic derangements, however does have a mild transaminitis with normal T. bili, AST 41, ALT 78. Urinalysis is turbid, nitrate positive, leuk esterase positive, has 31 red blood cells, 34 white blood cells, 1+ bacteria. She received antibiotics and fluids overnight as well as medications for pain relief. She received Levaquin based on prior micro results. CT scan shows moderate right hydronephrosis, concerning for pyelonephritis. Patient has a 13 mm proximal right ureteral calculus. Given these findings we will consult urology and patient may need transfer for definitive management given that we do not have IR capabilities today and will not be able to place a nephrostomy tube. Per chart review patient came to the emergency department on December 17 for a partially dislodged nephrostomy tube. The recommendation was to have the nephrostomy tube replaced however patient elected to have the nephrostomy tube removed. Also per chart review Dr. Taylor is her urologist. My evaluation patient hemodynamically stable, not in distress however continues to have right flank pain. Discussed with patient, she is open and amenable to having replacement of the nephrostomy tube. 0740: Discussed test HPI, PMHx, lab, radiology results and/or management with urologist Dr. Taylor. Recommends transfer.
[2025-01-03] MEDS: fentaNYL CIT INJ 50 mCg/ML AMP 2ML IVP (06:35)
[2025-01-03] MEDS: RINGERS LACTATED 1000 ML 1,000 ML 999 ML IV (06:37)
[2025-01-03 06:38] VITALS: BP 100/64; PULSE 75; RESP 14; TEMP 37; O2SAT 99
--- NOTE | 2025-01-03 07:26 | PC.CM ---
Addendum entered by Francisco Preciado RN 01/03/25 07:49: 0745-Dr. Gotti reached out to Dr. Meier who is patient's urologist to notify him of patient's condition and plans to transfer, he was agreeable with the plan to transfer. Original Note: Received request from ER MD Gotti to initiate transfer for urology services. Packet has been created and imaging placed on CD. ER AZALIA Simmons will f/u with phone call to [facility] and [facility].
--- NOTE | 2025-01-03 07:49 | PC.NURSE ---
DR ROLLINS ON PHONE WITH UROLOGIST FROM [facility]
[2025-01-03 08:15] VITALS: BP 109/69; PULSE 92; RESP 19; TEMP 36.9; O2SAT 100
[2025-01-03] MEDS: KETOROLAC INJ 30 MG/ML VIAL 15 MG IVP (08:21)
--- NOTE | 2025-01-03 08:43 | PC.NURSE ---
Gave report to Jelly at [facility]
[2025-01-03 08:49] VITALS: BP 109/69; PULSE 92; RESP 19; TEMP 36.9; O2SAT 100
== END 2025-01-03 08:49 | disposition short-term general hospital (02) ==
PROVIDERS: Nurse Practitioner Family; Emergency Provider Emergency Medicine
DX: N13.6 Pyonephrosis (principal); J98.11 Atelectasis; Z93.6 Other artificial openings of urinary tract status; Z75.1 Person awaiting admission to adequate facility elsewhere
CPT/HCPCS: 36415; 74176; 80053; 81001; 81025; 83690; 85025; 96361; 96365; 96372; 96375; 99284; J0780; J1885; J1956; J2270; J2405; J3010; J7030; J7120

== ENCOUNTER 2025-03-09 12:49 | Emergency (ER) | payer MEDICAID, SELFPAY ==
[2025-03-09 12:57] VITALS: BP 110/76; PULSE 74; RESP 16; TEMP 36.8; O2SAT 96; BMI 35.2
--- NOTE | 2025-03-09 13:04 | XR_ITS ---
Examination: CT abdomen and pelvis without contrast. Coronal 3-D reconstructions. Sagittal 2-D reconstructions. Date and time of exam: March 09, 2025, 1409 hours, comparison 01/03/2025 INDICATIONS: Right-sided flank pain months, history kidney stones CTDI: vol (mGy): 8.86 DLP: (mGycm): 501 Technique: Axial images of the abdomen have been obtained, 3 mm slice thickness Intravenous contrast material has not been administered. Low dose protocols were performed. One or more of the following dose reduction techniques were used; automated exposure control, adjustment of the mA and/or KV according to patient size, use of iterative reconstruction technique. Findings: No focal liver or splenic lesions No gallstones Bilateral renal calculi Minimal right hydronephrosis, right ureteral stent in satisfactory position Normal appendix No bowel obstruction 4 mm proximal right ureteral calculus No pelvic mass No bladder mass or bladder calculi IMPRESSION: Bilateral renal calculi Minimal right hydronephrosis, right ureteral stent in satisfactory position 4 mm proximal right ureteral calculus
[2025-03-09] MEDS: KETOROLAC INJ 60 MG/2 ML VIAL 30 MG IM (13:13)
[2025-03-09 13:32] LABS: Collection Type, Urine Clean Catch
[2025-03-09 13:39] LABS: Basophils # (Auto) 0.0 Thou/mm3 (0.0-0.2); Basophils % (Auto) 0 % (0-2.5); Eosinophils # (Auto) 0.1 Thou/mm3 (0.0-0.5); Eosinophils % (Auto) 1 % (0-10); Hematocrit 40.0 % (36.0-46.0); Hemoglobin 13.8 g/dL (12.0-16.0); Immature Granulocytes Auto 0.01 Thou/mm3 (0.00-0.00); Lymphocytes # (Auto) 1.5 Thou/mm3 (1.0-4.8); Lymphocytes % (Auto) 26 % (10-50); Mean Corpuscular HGB Conc 34.5 g/dl (31.0-37.0); Mean Corpuscular Hemoglobin 30.6 pg (25.0-35.0); Mean Corpuscular Volume 89 fL (80-100); Monocytes # (Auto) 0.5 Thou/mm3 (0.0-0.8); Monocytes % (Auto) 9 % (0-12); Neutrophils # (Auto) 3.8 Thou/mm3 (1.8-7.7); Neutrophils % (Auto) 64 % (37-80); Nucleated Red Blood Cell # 0.00 Thou/mm3 (0.00-0.00); Nucleated Red Blood Cell % 0 /100 WBC (0); Platelet Count 265 Thou/mm3 (140-440); RDW Standard Deviation 37.8 fL (36.4-46.3); Red Blood Count 4.51 Miln/mm3 (4.00-5.20); White Blood Count 5.9 Thou/mm3 (3.6-11.0)
[2025-03-09 13:44] LABS: HCG Qualitative,Urine Negative
[2025-03-09 13:47] LABS: Bacteria,Urine Rare; Bilirubin,Urine Negative (Negative); Blood,Urine 3+ (Negative); Color,Urine Lt-Yellow (Lt Yel-Yel); Glucose, Urine Negative (Negative); Ketones,Urine Negative (Negative); Leukocyte Esterase,Urine Positive (Negative); Nitrite,Urine Negative (Negative); PH,Urine 6.5 (5.0-7.0); Protein,Urine 1+ (Neg - Trace); RBC,Urine 369 /hpf (0-3); Specific Gravity,Urine 1.022 (1.001-1.035); Squamous Epithelial Cell,Urine 5 /hpf (0-5); Urobilinogen,Urine Negative mg/dL (0.0-1.0); WBC,Urine 28 /hpf (0-5)
[2025-03-09 13:48] LABS: Clarity,Urine Hazy (Clear/Hazy)
[2025-03-09 13:59] LABS: Alanine Aminotransferase 34 U/L (10-49); Albumin, Serum 4.6 gm/dL (3.5-5.0); Albumin/Globulin Ratio 1.6 (1.2-2.2); Alkaline Phosphatase 78 U/L (46-116); Anion Gap 6 (7-16); Aspartate Amino Transferase 23 U/L (0-34); BUN/Creatinine Ratio 17 Ratio (12-20); Bilirubin,Total 0.5 mg/dL (0.3-1.2); Blood Urea Nitrogen 15 mg/dL (9-23); Calcium 9.3 mg/dL (8.3-10.6); Calcium (Corrected) 9.3 mg/dL (8.5-10.1); Carbon Dioxide 27.0 mMol/L (20.0-31.0); Chloride 107 mMol/L (98-107); Creatinine (Component) 0.9 mg/dL (0.6-1.3); Estimated Creatinine Clearance 81.8 mL/min (>60); Globulin 2.9 gm/dL (2.3-3.5); Glucose 100 mg/dL (74-106); Lipase 27 U/L (12-53); Osmolality,Calculated 280 (275-295); Potassium 4.1 mMol/L (3.4-5.1); Sodium 140 mMol/L (136-145); Total Protein 7.5 gm/dL (5.7-8.2); eGFR > 60 See Note
--- NOTE | 2025-03-09 14:21 | PC.NURSE ---
CALLED PT IN LOBBY AND OUTSIDE TO ASSESS PAIN LEVEL, NO ANSWER.
--- NOTE | 2025-03-09 15:56 | EDNOTE_ITS ---
ED Female Urogenital RME/HPI General Chief complaint: Urogenital-Female Stated complaint: PAIN IN R) KIDNEY X 2 DAYS Time Seen by Provider: 03/09/25 12:59 Arrival date/time: 03/09/25 12:49 This is a case of 34-year-old female with history of ureteral stone status post neurostomy tube which was removed last December and kidney stent came in in the emergency room due to right flank pain radiating to the right side of abdomen for 2 days associated with nausea vomiting patient denies any urinary symptoms denies any fever chills nausea vomiting persistent arm symptoms this patient decided to start comfort care in the emergency room Limitations: no limitations Related Data Home Medications ?Medication ?Instructions ?Recorded ?Confirmed bictegravir 50 mg-emtricitabine 1 tab PO QDAY 10/29/24 10/29/24 200 mg-tenofovir alafenam 25 mg tablet (Biktarvy) Previous Rx's ?Medication ?Instructions ?Recorded metronidazole 250 mg tablet 500 mg (2 x 250 mg) PO BID #60 tabs 11/03/24 ketorolac 10 mg tablet 10 mg PO Q8H PRN pain #20 ta bs 11/16/24 cephalexin 500 mg capsule 500 mg PO QID #40 caps 11/25 acetaminophen 300 mg-codeine 30 mg 2 tab PO Q8H PRN pa in #20 tabs 12/07/24 tablet cefdinir 300 mg capsule 300 mg PO BID #14 caps 12/07 ciprofloxacin HCl 500 mg tablet 500 mg PO BID #20 tabs 12/09/24 (Cipro) acetaminophen 650 mg 650 mg PO Q12H #30 tabs 11/30 tablet,extended release ketorolac 10 mg tablet 10 mg PO Q8H #10 tabs hydrocodone 5 mg-acetaminophen 325 1 tab PO Q6H PRN pa in #12 tabs 03/09/25 mg tablet ondansetron 4 mg disintegrating 4 mg PO Q8H #20 tabs 1 05/10/24 tablet sulfamethoxazole 800 1 tab PO Q12H #20 tabs 03/09 mg-trimethoprim 160 mg tablet (Bactrim DS) tamsulosin 0.4 mg capsule (Flomax) 0.4 mg PO QDAY #10 caps 03/09/25 Allergies Allergy/AdvReac Type Severity Reaction Status Date / Time Penicillins Allergy Intermediate Rash Verified 03/09/25 12:52 Review of Systems Review of Systems Systems Reviewed: All systems reviewed, normal except as documented Constitutional Constitutional: Reports system reviewed and no additional complaints, except as documented and Reports as per HPI ENT Ears, Nose, Mouth, and Throat: Denies dysphagia and Denies odynophagia Cardiovascular Cardiovascular: Reports system reviewed and no additional complaints, except as documented and Reports as per HPI Respiratory Respiratory: Reports as per HPI Gastrointestinal Gastrointestinal: Reports system reviewed and no additional complaints, except as documented, Reports as per HPI, Reports abdominal pain, Denies belching, Den ies bloating, Denies change in bowel habits, Denies change in stool character, Denies coffee ground emesis, Denies constipation, Denies cramping, Denies diarrhea, Denies dyspepsia, Denies dysphagia, Denies early satiety, Denies excessive flatus, Denies fecal incontinence, Denies heartburn, Denies hematemesis, Denies hematochezia, Denies loose stools, Denies melena, Denies nausea, Denies odynophagia, Denies tenesmus and Denies vomiting Neurologic Neurologic: Reports system reviewed and no additional complaints, except as documented and Reports as per HPI Past Medical History Past Medical History CARDIAC: Negative Cardiac Disorders or Congestive Heart Failure RESPIRATORY: Negative Chronic Obstructive Pulmonary Disease (COPD) or Asthma GENITOURINARY: Positive Genitourinary Disorders and Kidney Stones; Negative Renal Disease REPRODUCTIVE: Positive Previous Pregnancies ENDOCRINE: Negative Diabetes Mellitus Type 1 or Diabetes Mellitus Type 2 HEMATOLOGIC: Negative Sickle Cell Disease OTHER HISTORY: Positive Human Immunodeficiency Virus (HIV) Surgical History SURGICAL: Positive Tubal Ligation and Section Social History SMOKING STATUS: Never smoker SUBSTANCE USE: does not use ED Exam General Limitations: Present no limitations General appearance: Present alert, in no apparent distress and other (Patient is awake alert oriented not in distress nontoxic looking well-hydrated well nourished) Head Head exam: Present atraumatic, normocephalic and normal inspection Eye Eye exam: Present normal appearance, PERRL and EOMI ENT ENT exam: Present normal exam, normal oropharynx and mucous membranes moist Neck Neck exam: Present normal inspection, full ROM and trachea midline; Absent tenderness, meningismus, lymphadenopathy or thyromegaly Chest Chest inspection: Present normal inspection and symmetric chest wall rise; Absent tenderness Respiratory Respiratory exam: Present normal lung sounds bilaterally; Absent respiratory distress, wheezes, stridor, accessory muscle use or prolonged expiratory phase Cardiovascular Cardiovascular exam: Present regular rate, normal rhythm and normal heart sounds; Absent bradycardia, tachycardia, irregular rhythm, systolic murmur, diastolic murmur or clicks Abdominal Exam Abdominal exam: Present soft, tenderness (Follow-up follow-up mild tenderness right flank and right lower abdomen no CVA tenderness bladder is not distended not) and normal bowel sounds; Absent distention, guarding, rebound, rigidity, diminished bowel sounds, hyperactive bowel sounds, hypoactive bowel sounds or organomegaly Extremities Exam Extremities exam: Present normal inspection and full ROM Back Exam Back exam: Present normal inspection and full ROM; Absent tenderness, CVA tenderness (R), CVA tenderness (L), muscle spasm, paraspinal tenderness, vertebral tenderness, rashes, sciatic notch tenderness (R), sciatic notch tenderness (L), straight leg raise (R) or straight leg raise (L) Neurological Exam Neurological exam: Present alert, oriented X3 and CN II-XII intact Psychiatric Psychiatric exam: Present normal affect and normal mood Skin Skin exam: Present warm, dry, intact, normal color and other (Excellent skin turgor) Course Quality Measures none Orders Category Date Time Status CT abdomen pelvis wo con Stat Exams 03/09/25 13:04 Completed CBC Stat Lab 03/09/25 13:26 Completed Comprehensive Metabolic Panel Stat Lab 03/09/25 13:26 Completed HCG Qualitative,Urine Stat Lab 03/09/25 13:10 Completed Lipase Stat Lab 03/09/25 13:26 Completed Urinalysis Stat Lab 03/09/25 13:10 Completed Ketorolac Inj [Toradol Inj] Med 03/09/25 13:05 Discontinued 30 mg IM X1 ONE Vital Signs Vital signs: Vital Signs Temperature 98.3 F 03/09/25 12:57 Pulse Rate 74 03/09/25 12:57 Respiratory Rate 16 03/09/25 12:57 Blood Pressure 110/76 03/09/25 12:57 Pulse Oximetry (%) 96 03/09/25 12:57 Oxygen Delivery Method Room Air 03/09/25 12:57 Oxygen saturation is 96% in room air Urogenital - Female MDM Narrative MDM Narrative:: This is a case of 34-year-old female with history of ureteral stone status post neurostomy tube which was removed last December and kidney stent came in in the emergency room due to right flank pain radiating to the right side of abdomen for 2 days associated with nausea vomiting patient denies any urinary symptoms denies any fever chills nausea vomiting persistent arm symptoms this patient decided to start comfort care in the emergency room physical examination patient is awake alert oriented not in distress nontoxic looking well-hydrated well- nourished noted moderate tenderness on the right flank right lower quadrant but no CVA tenderness negative psoas negative straight or negative Rovsing's negative McBurney's negative Benites sign negative CVA tenderness bladder is not distended not tender patient is afebrile not tachycardic not tachypneic nonhypoxic BP stable patient has no signs of symptoms of sepsis nor dehydration nor acute abdomen excellent skin turgor CT scan Bilateral renal calculi Minimal right hydronephrosis, right ureteral stent in satisfactory position l 4 mm proximal right ureteral calculus blood test showed no leukocytosis no anemia kidney and liver function is nisreen urinalysis just showed blood and WBC in the urine suggestive of urinary tract infection which the time of exam there is no indication to admit the patient or to transfer the patient to higher level of care patient stone is stable after giving Toradol patient pain was 0 resolved patient have appointment to see urologist March 19, 2025 patient will follow- up with PCP in 2 days for reevaluation she will call the urologist to have an earlier appointment for any worsening symptoms or any emergent concern return precaution in the emergency room immediately or call 911 patient was prescribed [place] for pain Bactrim for urinary tract Zofran for nausea vomiting and Flomax for urinary stone Patient was discharged with comfortable condition walking with stable gait. Patient verbalized no further complains explained diagnosis and answered patient question. Patient is comfortable with the proposed management plan including the need to follow up with his/her primary care physician and any specialist if applicable Discussed patient for any urgent condition or worsening sx, He/She needed to go to emergency room immediately or call 911. Patient acknowledge the responsibility to follow up as instructed and to monitor her/his symptoms. For any persistence of the symptoms for more than 3-5 days return precaution advised. Discussed the result of the test and was given printed discharge instruction Patient data External records reviewed:: [facility] previous records Clinical information provided by:: patient Social determinants that could affect healthcare access:: none Patient has the following chronic illnesses:: None How is presenting disease/condition affected by chronic disease/condition?: no chronic disease Evaluation data The following diagnostics were reviewed and interpreted by me:: lab results and radiology exam(s) Lab and/or radiology exams considered but not ordered:: Reviewed Interpretation Summary: Reviewed Medications / Prescriptions Medications or Prescriptions considered but not ordered:: Given Medication administrations:: Medication Administration History Discontinued Medications Ketorolac Tromethamine (Ketorolac Inj 60 Mg/2 Ml Vial) 30 mg IM X1 ONE Stop: 03/09/25 13:06 Last Admin: 03/09/25 13:13 Dose: 30 mg Documented By: Given Consultations Consultation(s) initiated? (list below): No Diagnosis Urogenital Female Differential Diagnosis: urinary tract infection, cystitis and other (Nephrolithiasis ureteral stone) Most likely diagnosis given after review of the tests above:: Urinary tract infection with urinary stone with hydronephrosis Admission Indicated Admission indicated?: not indicated Explain why admission is indicated or not indicated:: Not indicated Admission Request Was there a request for admission?: No Admission Attestation Admission request attestation: Not indicated Disposition Plan Disposition Plan: Discharge Discharge Attestation Discharge Attestation: The patient and all family members were given an opportunity to ask questions and understood the discharge instructions. Discharge instructions specifically effects, indications for sooner follow up or return to the emergency department, and the expected course of current diagnosis. Patient condition: Stable Discharge Plan Plan Patient Disposition: HOME (Self Care) Patient condition on transfer: Stable Prescriptions/Referrals Prescriptions/Med Rec: New hydrocodone-acetaminophen 5-325 mg tablet 1 tab PO Q6H MDD max 4 tabs per day PRN (Reason: pain) Qty: 12 0RF ondansetron 4 mg tablet,disintegrating 4 mg PO Q8H Qty: 20 0RF sulfamethoxazole-trimethoprim [Bactrim DS] 800-160 mg tablet 1 tab PO Q12H Qty: 20 0RF tamsulosin [Flomax] 0.4 mg capsule 0.4 mg PO QDAY Qty: 10 0RF No Action acetaminophen-codeine 300-30 mg tablet 2 tab PO Q8H MDD 6 PRN (Reason: pain) Qty: 20 0RF cefdinir 300 mg capsule 300 mg PO BID Qty: 14 0RF ketorolac 10 mg tablet 10 mg PO Q8H Qty: 10 0RF Rx Instructions: maximum total duration of 5 days from all oral, intranasal, or parenteral formulations acetaminophen 650 mg tablet extended release 650 mg PO Q12H Qty: 30 0RF Biktarvy 50-200-25 mg tablet 1 tab PO QDAY Patient Comments: TAKE 1 TABLET BY MOUTH EVERY DAY FOR 30 DAYS metronidazole 250 mg Tablet 500 mg PO BID Qty: 60 0RF ketorolac 10 mg tablet 10 mg PO Q8H PRN (Reason: pain) Qty: 20 0RF Rx Instructions: maximum total duration of 5 days from all oral, intranasal, or parenteral formulations cephalexin 500 mg capsule 500 mg PO QID Qty: 40 0RF ciprofloxacin HCl [Cipro] 500 mg tablet 500 mg PO BID Qty: 20 0RF Referrals: Susie Carver PA-C [Primary Care Provider] - In 1 week Problem List Clinical Impression: Flank pain, Ureteric stone, Urinary tract infection, Hydronephrosis Patient/Caregiver Discharge Instructions Education Materials: Urinary Tract Infections in Women, Treating Kidney Stones ..., Understanding Hydronephrosis, ED Pain, Acute, Uncertain Cause Additional Instructions: it is very important to return to your urologist for further evaluation and treatment of your ureteral stone follow-up with your primary care physician in 2 days for reevaluation worsening symptoms or any emergent concern call 911 or go to the nearest emergency room take your medication as directed finish the course of antibiotic Pedialyte Gatorade for hydration increase water intake is advised Print Language: Italian Stand Alone Forms: Carla Award Info., Patient Portal Info Letter WILNER/NAVEEN Supervising Physician WILNER/NAVEEN Supervising Physician: Dr. pino
== END 2025-03-09 15:57 | disposition home or self-care (01) ==
PROVIDERS: Nurse Practitioner Family; Emergency Provider Emergency Medicine; PCP Physician Assistant
DX: N13.6 Pyonephrosis (principal)
CPT/HCPCS: 36415; 74176; 80053; 81001; 81025; 83690; 85025; 96372; 99283; J1885